=== PATIENT | male | born 1945 | race African-American/Black ===

== ENCOUNTER 2017-02-12 06:37 | Inpatient (IN) ==
[2017-02-12] MEDS ORDERED: ONDANSETRON 4 MG/2 ML VIAL IV PRN ×2 (06:44→10:17)
[2017-02-12] MEDS ORDERED: DILTIAZEM 50 MG/10 ML VIAL IV STA (06:45)
[2017-02-12] MEDS ORDERED: SODIUM CHLORIDE 0.9% 100 ML IV ONE (06:50)
[2017-02-12] MEDS ORDERED: ONDANSETRON 4 MG/2 ML VIAL ONE (06:50)
[2017-02-12] MEDS ORDERED: DILTIAZEM 100 MG VIAL.ADD IV ONE (06:50)
[2017-02-12] MEDS ORDERED: DILTIAZEM 50 MG/10 ML VIAL IV ONE (06:51)
--- NOTE | 2017-02-12 07:09 | Emergency Department Note ---
Marcelina Lozano Hilary, am scribing for, and in the presence of, Ra Nogueira MD 06: 47. Mirlande Lozano James D, MD, personally performed the services described in this documentation, ascribed by Cordelia Hewitt in my presence, and it is both accurate and complete 707 . Arrival - Arrival Stated Complaint: ABD pain transfer from [facility] Mode of Arrival: Stretcher Limitations: No Limitations Source: Patient, RN Notes Reviewed Time Seen by Provider: 02/12/17 06:42 - History of Present Illness HPI Narrative: Pt is a 71 y/o black male brought into the ED via EMS with c/o sharp abdominal pain which onset yesterday. Pt denies diarrhea or vomiting but confirms abdominal pain. He reports taking his medication as prescribed and states that he goes to dialysis Wednesday, Wednesday, and Wednesday. No other complaints or problems stated in the ED. Onset (ago): hour(s) Consistency: constant Severity: moderate Severity scale (1-10): 3 Quality: sharp Allergies/Adverse Reactions: Allergies Allergy/AdvReac Type Severity Reaction Status Date / Time No Known Allergies Allergy Verified 02/12/17 06:53 Home Medications: Home Medications Medication Instructions Recorded Confirmed Type Famotidine Tab [Pepcid Tab] 20 mg PO BID 06/22/16 01/21/17 History Allopurinol 300 mg PO DAILY 07/17/16 01/21/17 History Calcium Acetate 4 capsule PO TID W/MEALS 07/17/16 01/21/17 History Metoclopramide Tab [Reglan Tab] 5 mg PO AC 07/17/16 01/21/17 History Levothyroxine Tab [Synthroid Tab] 75 mcg PO DAILY@0700 10/06/16 01/21/17 History Carvedilol 0.5 tablet PO QAM 10/16/16 01/21/17 History Docusate Sodium Cap [Colace Cap] 100 mg PO BID 10/16/16 01/21/17 History Carvedilol [Coreg] 6.25 mg PO BEDTIME 01/06/17 01/21/17 History Cyclobenzaprine [Flexeril] 10 mg PO DAILY 01/06/17 01/21/17 History Vit B Cmplx 3/Folic AC/C/Biot 1 each PO DAILY 01/06/17 01/21/17 History [Sarai-Scooby Rx Tablet] Review of System - Review of System 12 point system: reviewed and no additional remarkable complaints except as stated - Review of System Constitutional: Absent: fever Gastrointestinal: Present: abdominal pain. Absent: vomiting, diarrhea Exam Physical Examination: GENERAL: This is a well-nourished, well-developed in no apparent distress. VITAL SIGNS: Temperature: 98.7 Pulse: 109 Respiratory: 22 Blood Pressure: 77/ 66 O2 Sat: HEENT: Head is normocephalic and atraumatic. Pupils are equally round and reactive to light. Extraocular movement are intact. Oropharynx is benign with moist mucous membranes. NECK: Neck is soft and supple without tenderness. There are no masses. There is no lymphadenopathy. LUNGS: Lungs are clear to auscultation bilaterally. Chest rises symmetrically. There is no chest wall tenderness. CV: Heart is irregularly irregular with rapid rate without murmurs, rubs, or gallops. ABDOMEN: Abdomen is soft, tender over the LLQ to palpation. There are no abnormal masses palpated. There is no organomegaly. Bowel sounds are present and active. SKIN: Skin is warm and dry. No rash. EXTREMITIES: Patient has full range of motion without tenderness. There is no pedal edema. NEUROLOGIC: Awake, alert, and oriented x4. Cranial nerves II through XII are grossly intact. There are no motorsensory deficits. PSYCHIATRIC: Normal affect. Normal mood. Vital Signs: Vital Signs Temperature 98.7 F 02/12/17 06:37 Pulse Rate 109 H 02/12/17 06:37 Respiratory Rate 22 02/12/17 06:37 Blood Pressure 77/66 02/12/17 06:37 Course Course Narrative: Cardizem bolus and infusion given to the patient while in the emergency department. - Consultations Consultation #1: Discussed with hospitalist. Patient will be admitted to their service. Time: 09:20 Results - Labs CBC & BMP: 02/12/17 07:58 02/12/17 07:58 Lab Results: I have reviewed the patients labs Labs: Laboratory Tests 02/12/17 07:58 WBC 7.4 RBC 4.39 Hgb 13.0 L Hct 39.0 L RDW 18.4 H Plt Count 111 L Lymph % (Auto) 19.1 L Laboratory Tests 02/12/17 02/12/17 07:58 07:58 Platelet Estimate Decreased Hypochromasia 1+ Ovalocytes Slight Morphology Comment Sodium 136 Potassium 3.7 Chloride 97 L Carbon Dioxide 30 BUN 33 H Creatinine 6.80 H BUN/Creatinine Ratio 4.00 L Total Bilirubin 1.60 H Alkaline Phosphatase 256 H Total Protein 8.0 Albumin 3.2 L Globulin 4.8 H Albumin/Globulin Ratio 0.6 L Lipase 69.0 L - EKG EKG results: interpreted by ERMD - Impressions EKG: Atrial fib with RVR, rate 124, incomplete right bundle branch block, nonspecific ST-T wave changes. - Diagnostic Findings Procedure: Abdominal x-ray: image reviewed by me, report reviewed by me (Gas in nondistended loops of small bowel which is a nonspecific finding at this time but could be associated with possible mild ileus, enteritis ETC. No free air. Prior median sternotomy and cholecystectomy with permanent pacemaker), Chest x- ray: image reviewed by me, report reviewed by me (Status post median sternotomy with minimal cardiomegaly and left subclavian ventricular permanent pacemaker. Chronic scarring in the lung with borderline/mild CHF. ), CT Abdomen and Pelvis : report reviewed by me, image reviewed by me (Cardiomegaly demonstrated with refluc of contrast material into IVC adn hepatic veins which appear somewhat prominent consistent with right heart failure. Bilateral hilar adenopathy. Ground glass opacification throught the bilateral lungs with interlobuar septal thickening consistent with pulmonary edema. Trace bilateral pleural effusions. Small abdominal ascites. The urinary bladder is incompletely distended. Mild stranding about the urinary bladder could reflect cystitis. Correlate with UA. Significant atherosclerotic disease with mural thrombus noted within the aorta and significant narrowing at the takeoffs of the bilateral superficial femoral arteries. Bilateral renal atrophy with probable small renal cysts. Status post cholecystectomy. Grossly stable hyperenhancing focus in several subcentimeter hypodensitites within the spleen. Subcentimeter nonobstructing left renal calculi. Mild prostate enlargement. Colonic diverticulosis. ) Critical Care Time Critical Care Time: No Disposition Clinical Impression: Abdominal pain, left lower quadrant, Atrial fibrillation with RVR Case discussed with: patient Disposition: Still a Patient Condition: Stable Time of Disposition: 09:20
[2017-02-12] MEDS: DILTIAZEM INJ 100 MG in SODIUM CHLORIDE 0.9% 100 ML IV SCH ×2 (08:01→16:00)
--- NOTE | 2017-02-12 08:06 | XRay Report ---
Exam: XR abdomen 2V Date: 02/12/2017 6:45 AM Comparison: 08/26/2014 Indication: Generalized abdominal pain Technique:[Supine and left lateral decubitus abdomen] Findings: Gas in nondistended loops of small bowel which is a nonspecific finding at this time. No free air is identified. Prior cholecystectomy and median sternotomy with permanent pacemaker. Degenerative changes are noted. Impression: Gas in nondistended loops of small bowel which is a nonspecific finding at this time but could be associated with possible mild ileus, enteritis, etc. No free air. Prior median sternotomy and cholecystectomy with permanent pacemaker. PROCEDURE INTERPRETED AT [facility] DEPARTMENT OF RADIOLOGY Final Report Signed by: Dr. Brandy Ambrose
--- NOTE | 2017-02-12 08:08 | XRay Report ---
Portable chest Date: 02/12/2017 Clinical history: Generalized abdominal pain Comparison: 10/16/2016 Technique: Portable AP sitting chest Findings: The heart remains minimally enlarged with prior median sternotomy. Left subclavian ventricular permanent pacemaker. Chronic scarring in the lungs with persistent blunting of the left costophrenic angle. Stable mediastinum and osseous structures. Impression: Status post median sternotomy with minimal cardiomegaly and left subclavian ventricular permanent pacemaker. Chronic scarring in the lungs with borderline/mild CHF. PROCEDURE INTERPRETED AT [facility] DEPARTMENT OF RADIOLOGY Final Report Signed by: Dr. Brandy Ambrose
--- NOTE | 2017-02-12 08:12 | CT Report ---
CT abdomen pelvis w con Indication: Abdominal pain/pelvic pain Comparison: CT abdomen pelvis without contrast dated February 12, 2017. CT abdomen pelvis dated November 10, 2016. Technique: Multiple axial tomographic images of the abdomen and pelvis were obtained after the administration of 100 cc Omnipaque 350 intravenous contrast. Findings: Cardiomegaly demonstrated with reflux of contrast material into the IVC and hepatic veins which appear somewhat prominent consistent with right heart failure. Bilateral hilar adenopathy. Groundglass opacification throughout the bilateral lungs with interlobular septal thickening consistent with pulmonary edema. Trace bilateral pleural effusions. No worrisome focal hepatic abnormality. Status post cholecystectomy. Grossly stable hyperenhancing focus in several subcentimeter hypodensities within the spleen. Mild nonspecific thickening of the adrenal glands. Bilateral renal atrophic change. Subcentimeter nonobstructing left renal calculi. Small hypodensities are demonstrated within the kidneys which are too small to characterize but may reflect cysts. No evidence of hydronephrosis. The urinary bladder is incompletely distended. Mild stranding about the urinary bladder could reflect cystitis. Correlate with urinalysis. Mild prostate enlargement. Small abdominal ascites. Colonic diverticulosis. There is no evidence of gastrointestinal obstruction or acute appendicitis. Significant atherosclerotic disease with mural thrombus noted within the aorta and significant narrowing at the takeoffs of the bilateral superficial femoral arteries. Visualized osseous and surrounding soft tissue structures appear grossly unchanged. Degenerative change of the bilateral hips and spine. Prior sternotomy. IMPRESSION: Cardiomegaly demonstrated with reflux of contrast material into the IVC and hepatic veins which appear somewhat prominent consistent with right heart failure. Bilateral hilar adenopathy. Groundglass opacification throughout the bilateral lungs with interlobular septal thickening consistent with pulmonary edema. Trace bilateral pleural effusions. Small abdominal ascites. The urinary bladder is incompletely distended. Mild stranding about the urinary bladder could reflect cystitis. Correlate with urinalysis. Significant atherosclerotic disease with mural thrombus noted within the aorta and significant narrowing at the takeoffs of the bilateral superficial femoral arteries. Bilateral renal atrophy with probable small renal cysts. Status post cholecystectomy. Grossly stable hyperenhancing focus in several subcentimeter hypodensities within the spleen. Subcentimeter nonobstructing left renal calculi. Mild prostate enlargement. Colonic diverticulosis. Other/detailed findings as above. The CT exam was performed using one or more of the following dose reduction techniques: Automated exposure control, adjustment of the mA and/or kV according to patient size, or use of iterative reconstruction technique. PROCEDURE INTERPRETED AT [facility] DEPARTMENT OF RADIOLOGY Final Report Signed by: Dr Raleigh Gavin
[2017-02-12 08:16] LABS: Basophils # 0.1 10*3/uL (0.0-0.2); Basophils % 0.8 % (0.0-0.8); Eosinophils # 0.2 10*3/uL (0.0-0.87); Immature Granulocytes % 0.4 %; Immature Granulocytes Absolute 0.03 #; Lymphocytes # 1.4 10*3/uL (1.4-4.0); Lymphocytes % 19.1 % (21.2-54.2); Mean Corpuscular HGB Conc 33.3 GM/DL (32-36); Mean Corpuscular Hemoglobin 30 PG (27-34); Mean Corpuscular Volume 88.8 FL (87-102); Mean Platelet Volume 10.8 FL (9.6-12.0); Monocytes # 0.6 10*3/uL (0.11-0.8); Monocytes % 7.5 % (1.7-12.7); NRBC # 0.05 10*3/uL; Neutrophils # 5.2 10*3/uL (1.4-7.4); Neutrophils % 70.2 % (38.7-73.9); Red Blood Count 4.39 MC/CUMM (3.8-5.5); Red Cell Distribution Width 18.4 % (9.3-17.3); White Blood Count 7.4 T/CUMM (4-12)
[2017-02-12 08:17] LABS: Platelet Count 111 T/CUMM (130-400)
--- NOTE | 2017-02-12 08:21 | EKG Report ---
Stationary ECG Study [facility] ER Test Date: 02/12/2017 7:41:05 AM Pat Name: SHOAIB JANSEN Department: Room: Gender: M Home Health Attendant: : 1945 Requested by: Shoaib Nur Order Number: [id number] Reading MD: BRITTNI LARA Intervals Shannon Rate: 124 P: 999 VT: 0 QRS: 136 QRSD: 108 T: -24 QT: 359 QTc: 432 Interpretive Statements ATRIAL FIBRILLATION WITH RAPID VENTRICULAR RESPONSE INCOMPLETE RIGHT BUNDLE BRANCH BLOCK POSSIBLE RIGHT VENTRICULAR HYPERTROPHY MODERATE ST DEPRESSION ABNORMAL QRS-T ANGLE Electronically Signed On 02-12-17 13:09:32 CDT by BRITTNI LARA [email or web address]
[2017-02-12 08:43] LABS: Hypochromasia 1+
[2017-02-12 08:44] LABS: Albumin 3.2 G/DL (3.4-5.0); Bilirubin,Total 1.6 MG/DL (0.2-1.0); Calcium 9.7 MG/DL (8.5-10.1); Ovalocytes Slight; Platelet Estimate Decreased; Potassium 3.7 MMOL/L (3.5-5.1)
[2017-02-12] MEDS ORDERED: GLUCAGON 1 MG VIAL IM PRN (10:17)
[2017-02-12] MEDS ORDERED: DOCUSATE SODIUM 100 MG CAPSULE PO PRN (10:17)
[2017-02-12] MEDS ORDERED: SODIUM CHLORIDE 0.9% 2,400 ML IV ONE (10:17)
[2017-02-12] MEDS ORDERED: NOREPINEPHRINE 8 MG in SODIUM CHLORIDE 0.9% 242 ML IV SCH (10:30)
[2017-02-12] MEDS ORDERED: SODIUM CHLORIDE 0.9% 250 ML IV STA ×2 (10:45)
--- NOTE | 2017-02-12 11:08 | Hospitalist History & Physical ---
<DacomaVikash negron - Last Filed: 02/12/17 10:47> Assessment and Plan - Time spent with patient Time spent with patient: Greater than 30 minutes (1) Atrial fibrillation with rapid ventricular response Status: Acute Assessment and plan: 71-year-old -[place] male who presents to the ED as a transfer from outside facility with atrial fibrillation and RVR. Patient is still in atrial fibrillation with a ventricular rate of 109-125. Patient was started on Cardizem drip in the ED. He will be admitted to the ICU for further evaluation and treatment. Cardiology is been consulted. Current Visit: No (2) ESRD (end stage renal disease) on dialysis Problem details: No acute indication for dialysis at this time. Status: Chronic Assessment and plan: BUN 30 creatinine 6.0. Patient is on hemodialysis and dialyzes at the [facility] in [place] on Mondays, Wednesdays, and Fridays. He is [place] [facility] [place]. Dr. Pagan has been consulted for continuation of dialysis during his hospital stay. Current Visit: No (3) Hypotension Status: Acute Assessment and plan: BP was 77/66 on admission. Patient was given 500 cc of normal saline bolus in the ED with some response. At the time of my exam, the patient is P was 111/ 26. He has been admitted to the ICU with continued IV fluids in addition to Levophed. We will titrate to keep MAP greater than 60 mmHg. Current Visit: No (4) Peripheral artery disease Status: Chronic Current Visit: No (5) Diabetic foot Status: Acute Assessment and plan: Blood glucose 91 on admission. Accu-Cheks ACHS. Sliding scale insulin per protocol. Current Visit: No (6) Prostatitis Status: Acute Current Visit: No (7) Status post coronary artery bypass grafting Status: Chronic Current Visit: No History of Present Illness Chief complaint: abdominal pain History of present illness: Mr. Nye is a 71 year old male with a past medical history significant for NM with CABG, pacemaker, hypertension, diabetes mellitus, ESRD on hemodialysis, gouty arthritis, and atrial fibrillation with RVR who presents to the ED via EMS as a transfer from [facility] for further evaluation of sharp abdominal pain thought to be SBP. On arrival, the patient was hypotensive 77/66 and in atrial fibrillation with RVR. He was immediately given 500 cc bolus of NS IV and placed in Trendelenburg with some response. He was also started on 100 ml Cardizem drip. At the time of my exam, the patient's BP was 111/26 however he was awake, alert and oriented x3. He reports that he began experiencing lower abdominal pain last night and decided to pursue medical treatment this morning at [facility]. He tells me that this has happened once before. He confirms headache, blurry vision , shortness of breath, nausea with 1 episode of emesis today, sharp right-sided abdominal pain. He denies chest pain, change in appetite or diet, change in bowel habits, BRBPR. Lab work reveals: WBC 7.4, hemoglobin 13.0, hematocrit 39.0 , platelet count 111, sodium 136, potassium 3.7, chloride 97, BUN 33, creatinine 6.80, total bili 1.60, alkaline phosphatase 256. The patient does have hemodialysis Wednesday, Wednesday, Wednesday. Given his hypotension and atrial fibrillation with RVR, the patient will be admitted to the ICU for further evaluation and treatment. Case been discussed with both Dr. Nogueira and Dr. Mckeon. Nephrology will be consulted for recommendations for dialysis. The patient is a full code. Home medications have been reviewed and reconciled. Home Medications Medication Instructions Recorded Confirmed Type Famotidine Tab [Pepcid Tab] 20 mg PO BID 06/22/16 01/21/17 History Allopurinol 300 mg PO DAILY 07/17/16 01/21/17 History Calcium Acetate 4 capsule PO TID W/MEALS 07/17/16 01/21/17 History Metoclopramide Tab [Reglan Tab] 5 mg PO AC 07/17/16 01/21/17 History Levothyroxine Tab [Synthroid Tab] 75 mcg PO DAILY@0700 10/06/16 01/21/17 History Carvedilol 0.5 tablet PO QAM 10/16/16 01/21/17 History Docusate Sodium Cap [Colace Cap] 100 mg PO BID 10/16/16 01/21/17 History Carvedilol [Coreg] 6.25 mg PO BEDTIME 01/06/17 01/21/17 History Cyclobenzaprine [Flexeril] 10 mg PO DAILY 01/06/17 01/21/17 History Vit B Cmplx 3/Folic AC/C/Biot 1 each PO DAILY 01/06/17 01/21/17 History [Sarai-Scooby Rx Tablet] Allergies Allergy/AdvReac Type Severity Reaction Status Date / Time No Known Allergies Allergy Verified 02/12/17 06:53 Medical,Surgical,& Family Hx - Medical History Cardio: History of: Cardiac Dysrhythmia (A fib/ A flutter), Cerebrovascular Disease, CHF, CAD (Coronary bypass grafting 2 only a single vein graft to the OM open 01/07), Hypertension, [place] (2000, 2009), Valvular Heart Disease, Cardiovascular Problems (CABG X 2 separate operations. Only SVG to OM1 open at [facility] 01/07.) Neurology: History of: Cerebrovascular Accident (2000) No history of: Seizures HEENT: History of: Eye Problem, Dental Problems (NO DENTURES AND NO TEETH), Glaucoma Endocrine: History of: Diabetes Mellitus (IDDM), Diabetes Mellitus (NIDDM), Dyslipidemia Rheumatology: History of;: Gout, Rheumatoid Arthritis Respiratory: History of: Pneumonia (HX), Respiratory Problems (2 LITERS OF OXYGEN AT BEDTIME) No history of: COPD Renal: History of: Dialysis (MWF), Renal Failure Gastrointestinal: History of: GERD, Gastrointestinal Bleed (09/2014 - resulting anticoagulation cessation), Polyps, GI Problems Musculoskeletal: History of: 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), Back/Neck Problems, Musculoskeletal Problems (arthritits) Hematology: History of: Anemia, Bleeding Problems No history of: Blood Transfusion Reaction Other: History of: Cancer (prostate) No history of: Anesthesia Reactions - Surgical History Cardiac Surgeries: Sugical HX of: Cardiac Catheterization, Cardiac Surgery (CABG ), Vascular Access Devices Thoracic Surgeries: Patient denies;: Organ Transplant HEENT Surgeries: Surgical HX of: Eye Surgery (12/2016 Cataract Rt Eye; 01/21/17 Sched for Lt Cataract) Abdominal Surgeries: Surgical HX of: Abdominal Surgery, Cholecystectomy, Colonoscopy, EGD Orthopedic Surgeries: Surgical HX of;: Implanted Devices (LEFT ARM AND LEFT CHEST DIALYSIS) - Family History Family History: Reports;: Family Cancer, Family Diabetes, Family Heart Disease, Family Hypertension Denies;: Family Anesthesia Reaction, Family Psychiatric Problems, Family Stroke - Social History Smoking Status: Never smoker Frequency of Alcohol Use: None Type of Drug Use: None Marital Status: Lives With:: Spouse Functional capacity: independent ambulation 12 point system: reviewed and no additional remarkable complaints except as stated Exam - Constitutional Vitals: Period Temp Pulse Resp BP Sys/Santana Pulse Ox Last 24 Hr 98.7 F-98.7 F 101-125 20-22 58-132/26-81 81-96 Exam: General appearance: overweight, mild distress - Head Head exam: Present: normocephalic, atraumatic - Eye Eye exam: Present: EOMI. Absent: conjunctival injection, nystagmus Pupils: Present: CHRIS, normal accommodation - ENT ENT exam: Present: normal exam, normal external ear exam - Neck Neck exam: Present: normal inspection. Absent: lymphadenopathy, tenderness, thyromegaly - Respiratory Respiratory exam: Present: Decreased breath sounds bilaterally, rhonchi. Absent : rales, wheezes - Cardiovascular Cardiovascular exam: Present: regular rate and rhythm. Absent: carotid bruit, gallop, rubs - GI/Abdominal GI/Abdominal exam: Present: normal bowel sounds. Absent: ascites, distended, mass - Extremities Exam Extremities exam: Present: Peripheral vascular disease, venous stasis dermatitis in diabetes absent: edema - Back Exam Back exam: Absent: CVA tenderness (L), CVA tenderness (R) - Neurological Exam Neurological exam: Present: alert, oriented X3, CN II-XII intact, reflexes normal - Psychiatric Psychiatric exam: Present: normal affect, normal mood - Skin Skin exam: Present: warm, dry Results - Labs CBC & BMP: 02/12/17 07:58 02/12/17 07:58 Sepsis Sepsis documentation within 6 hours of presentation: echo - Physical Exam Respiratory exam: decreased breath sounds, rhonchi Capillary Refill: Greater Than 3 Seconds Peripheral pulses: Radial (L): 1+, Radial (R): 1+, Dorsalis Pedis (L) PM: 1+, Dorsalis Pedis (R) PM: 1+, Posterior Tibialis (L): 0, Posterior Tibialis (R): 0 Cardiovascular exam: irregular rhythm, tachycardia <Gilson Mckeon III - Last Filed: 02/12/17 15:38> Assessment and Plan - Time spent with patient Time spent with patient: Greater than 30 minutes (1) Aortic mural thrombus Status: Chronic Assessment and plan: 02/12/2017: Uncertain if patient's abdominal pain complaints are in any way related to this finding reported on CT scan today. Consider starting oral anticoagulation. Of note patient experienced acute GI bleed thought to be related to small bowel AVM in September of this year. Consider vascular surgeon consult. Current Visit: Yes (2) Bilateral atherosclerotic renal artery stenosis Status: Chronic Assessment and plan: 02/12/2017: Patient does have essential hypertension but is well-controlled with current medications. He has hypotensive at present. Is receiving Levophed inotropic support. Diltiazem has been prescribed for atrial fibrillation ventricular rate control. Consider IV digoxin dosing to control ventricular rate and avoid additional blood pressure reduction associated with diltiazem infusion. I also expect patient's blood pressure to improve as atrial fibrillation ventricular rate slows down and possibly chemically cardioverted to sinus rhythm. Current Visit: Yes (3) Prostate hypertrophy Status: Chronic Current Visit: Yes (4) Diverticulosis Status: Chronic Assessment and plan: 02/12/2017: Today's KUB reports changes consistent with ileus versus enteritis. No such findings are reported on today's abdominal pelvic CT scan. Current Visit: Yes (5) Calculus of left kidney Status: Chronic Assessment and plan: 02/12/2017: Calculi are described as nonobstructive. I do not know how much urine patient makes (ESRD) consider straining urine to possibly collect stone for composition analysis. Current Visit: Yes (6) Thrombocytopenia Status: Acute Current Visit: Yes (7) Coronary artery disease Status: Chronic Assessment and plan: 02/12/2017: History of CABG, stent revascularization, and permanent cardiac pacemaker placement (history of tachybradycardia syndrome). Current Visit: Yes (8) ESRD (end stage renal disease) on dialysis Status: Chronic Assessment and plan: 02/12/2017: Wednesday, Wednesday, Wednesday hemodialysis schedule. Volume overload on chest x-ray. Scheduled hemodialysis session today. Current Visit: Yes (9) Type 2 diabetes mellitus Status: Chronic Assessment and plan: 02/12/2017: Hemoglobin A1c measures 5.7%. Current Visit: Yes (10) Hypothyroidism Status: Chronic Assessment and plan: 02/12/2017: Check TSH and free T4 levels. June 2016 TSH measured 10.7. Patient receives 75 mcg daily Synthroid supplementation. Titrate this dose according to current TSH and free T4 results. Current Visit: Yes (11) Chronic interstitial lung disease Status: Chronic Assessment and plan: 02/12/2017: Adequate oxygenation. Titrate supplemental oxygen flow as required to maintain saturation greater than 90%. Current Visit: Yes History of Present Illness History of present illness: Mr. Nye is a 71 year old black male admitted for evaluation of abdominal pain complaints. I interviewed and examined this patient independently today. I agree with medical history, physical exam findings, and treatment plan as I have amended the H&P recorded by nurse practitioner Vikash Lebron earlier today. - Constitutional Constitutional: Present: fatigue, lethargy, weakness - EENT Eyes: Present: other (Recent cataract excision procedure) - Cardiovascular Cardiovascular: Present: dyspnea on exertion, edema. Absent: chest pain with activity - Respiratory Respiratory: Present: dyspnea. Absent: cough, wheezing, snoring, change in phlegm color - Gastrointestinal Gastrointestinal: Present: cramping, nausea - Musculoskeletal Musculoskeletal: Present: muscle weakness - Psychiatric Psychiatric: Absent: anxiety Exam - Constitutional Vitals: Period Temp Pulse Resp BP Sys/Santana Pulse Ox Last 24 Hr 98.7 F-98.7 F 98-125 20-22 58-132/26-81 81-96 General appearance: normal weight - Head Head exam: Present: normal inspection - Eye Eye exam: Present: EOMI - Neck Neck exam: Absent: meningismus, tenderness - Respiratory Respiratory exam: Present: decreased breath sounds. Absent: rales, wheezes - Cardiovascular Cardiovascular exam: Present: irregular rhythm - GI/Abdominal GI/Abdominal exam: Present: normal bowel sounds, soft. Absent: tenderness, rebound - Extremities Exam Extremities exam: Present: other (Trace pretibial and pedal pitting edema; both feet are warm to touch, no palpable DP pulses) - Neurological Exam Neurological exam: Present: alert, oriented X3 - Psychiatric Psychiatric exam: Present: normal affect - Skin Skin exam: Present: normal color (Deeply pigmented), dry Results - Labs CBC & BMP: 02/12/17 07:58 02/12/17 07:58
--- NOTE | 2017-02-12 12:54 | Nephrology Consult Note ---
History of Present Illness Chief complaint: Abdominal pain in a patient with ESRD History of present illness: Mr. Nye is a 71 year old male who dialyzes on a Wednesday basis and [facility]. Patient's last dialysis was this past Wednesday. Patient states he started having severe abdominal pain yesterday quite suddenly. He states he had been on his general state of health up until then. The patient finally during the interview stated that he was invited to eat some white dirt yesterday by a strap cutting machine operator and did so. Patient states his abdominal pain is better now but has a little bit of discomfort with palpation. The patient denies any nausea or vomiting he states his last bowel movement was yesterday he states he has been having flatus. The patient on his evaluation was found also to have atrial fibrillation with a rapid ventricular response and is currently getting a Cardizem infusion. ROS: Head -positive headaches ENT - denies sore throat Lymphatics - denies lymphadenopathy Hematology - denies bleeding problems Heart - denies chest pain Lungs -positive shortness of breath Abdomen -positive abdominal pain Musculoskeletal -complains of pain in his right shoulder Skin - denies rash Neurology - denies stroke General - denies fever PE: General: in no acute distress Eyes: Pupils are round and reactive, conjunctivae are clear ENT: Nose is clear, O/P is benign Neck: Supple, no thyromegaly Lymphatics: No cervical, supraclavicular or axillary adenopathy Heart: Irregular irregular rhythm, no edema Lungs: Clear to auscultation anteriorly, chest expansion symmetric Abdomen: Soft, normoactive bowel sounds, no hepatomegaly Musculoskeletal: No joint erythema or effusions or joint asymmetry Skin: Normal turgor, normal hydration, no rash Neuro/Psych: Alert and cooperative with fair insight, he does intermittently drift off to sleep during the interview. Home Medications Medication Instructions Recorded Confirmed Type Famotidine Tab [Pepcid Tab] 20 mg PO BID 06/22/16 01/21/17 History Allopurinol 300 mg PO DAILY 07/17/16 01/21/17 History Calcium Acetate 4 capsule PO TID W/MEALS 07/17/16 01/21/17 History Metoclopramide Tab [Reglan Tab] 5 mg PO AC 07/17/16 01/21/17 History Levothyroxine Tab [Synthroid Tab] 75 mcg PO DAILY@0700 10/06/16 01/21/17 History Carvedilol 0.5 tablet PO QAM 10/16/16 01/21/17 History Docusate Sodium Cap [Colace Cap] 100 mg PO BID 10/16/16 01/21/17 History Carvedilol [Coreg] 6.25 mg PO BEDTIME 01/06/17 01/21/17 History Cyclobenzaprine [Flexeril] 10 mg PO DAILY 01/06/17 01/21/17 History Vit B Cmplx 3/Folic AC/C/Biot 1 each PO DAILY 01/06/17 01/21/17 History [Sarai-Scooby Rx Tablet] Allergies Allergy/AdvReac Type Severity Reaction Status Date / Time No Known Allergies Allergy Verified 02/12/17 06:53 Medical,Surgical,& Family Hx - Medical History Cardio: History of: Cardiac Dysrhythmia (A fib/ A flutter), Cerebrovascular Disease, CHF, CAD (Coronary bypass grafting 2 only a single vein graft to the OM open 01/07), Hypertension, [place] (2000, 2009), Valvular Heart Disease, Cardiovascular Problems (CABG X 2 separate operations. Only SVG to OM1 open at [facility] 01/07.) Neurology: History of: Cerebrovascular Accident (2000) No history of: Seizures HEENT: History of: Eye Problem, Dental Problems (NO DENTURES AND NO TEETH), Glaucoma Endocrine: History of: Diabetes Mellitus (IDDM), Diabetes Mellitus (NIDDM), Dyslipidemia Rheumatology: History of;: Gout, Rheumatoid Arthritis Respiratory: History of: Pneumonia (HX), Respiratory Problems (2 LITERS OF OXYGEN AT BEDTIME) No history of: COPD Renal: History of: Dialysis (MWF), Renal Failure Gastrointestinal: History of: GERD, Gastrointestinal Bleed (09/2014 - resulting anticoagulation cessation), Polyps, GI Problems Musculoskeletal: History of: 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), Back/Neck Problems, Musculoskeletal Problems (arthritits) Hematology: History of: Anemia, Bleeding Problems No history of: Blood Transfusion Reaction Other: History of: Cancer (prostate) No history of: Anesthesia Reactions - Surgical History Cardiac Surgeries: Sugical HX of: Cardiac Catheterization, Cardiac Surgery (CABG ), Vascular Access Devices Thoracic Surgeries: Patient denies;: Organ Transplant HEENT Surgeries: Surgical HX of: Eye Surgery (12/2016 Cataract Rt Eye; 01/21/17 Sched for Lt Cataract) Abdominal Surgeries: Surgical HX of: Abdominal Surgery, Cholecystectomy, Colonoscopy, EGD Orthopedic Surgeries: Surgical HX of;: Implanted Devices (LEFT ARM AND LEFT CHEST DIALYSIS) - Family History Family History: Reports;: Family Cancer, Family Diabetes, Family Heart Disease, Family Hypertension Denies;: Family Anesthesia Reaction, Family Psychiatric Problems, Family Stroke - Social History Smoking Status: Never smoker Frequency of Alcohol Use: None Type of Drug Use: None Exam - Vital Signs Vital signs: Period Temp Pulse Resp BP Sys/Santana Pulse Ox Last 24 Hr 98.7 F-98.7 F 101-125 20-22 58-132/26-81 81-96 Results - Labs CBC & BMP: 02/12/17 07:58 02/12/17 07:58 Assessment and Plan (1) Abdominal pain Status: Acute Assessment and plan: Patient's abdominal pain seems to be improved, the patient states he ate some white dirt yesterday and thinks that this may have been the cause to his abdominal pain, CT scan of the abdomen did not seem to reveal any acute pathology to explain his pain. Current Visit: Yes (2) Atrial fibrillation with RVR Status: Acute Assessment and plan: Continue Cardizem for rate control Current Visit: Yes (3) Diabetes mellitus Status: Chronic Assessment and plan: Monitor with a sliding scale Current Visit: No Qualifiers: Diabetes mellitus type: type 2 Diabetes mellitus complication status: with hyperosmolarity (4) End stage renal disease on dialysis Status: Chronic Assessment and plan: We will plan on hemodialysis today. Current Visit: No
[2017-02-12] MEDS: PANTOPRAZOLE 40 MG TABLET PO SCH (13:01)
[2017-02-12] MEDS: INSULIN LISPRO 100 UNIT/ML SUBCUT SCH ×3 (13:01→20:59)
[2017-02-12] MEDS: ENOXAPARIN 30 MG/0.3 ML SYRINGE SUBCUT SCH (13:02)
[2017-02-12] MEDS: METOCLOPRAMIDE 5 MG TABLET PO SCH ×2 (13:02→17:40)
[2017-02-12] MEDS: SODIUM CHLORIDE 0.9% 1,000 ML IV SCH ×3 (15:44→23:03)
--- NOTE | 2017-02-12 22:23 | ECHO Report ---
[facility] Exam Date: 02/12/2017 12:14 Referring Physician: Technologist: Darcie Rowe RDCS Age: 71 Ht (in): 65 Wt (lb): 176 Gender: M Exam Location: [facility] Echo Indications: Atrial fibrillation, End stage renal disease, Hypotension, IDDM, PAD, CAD with previous CABG, Presence of cardiac pacemaker BP: 132 / 81 HR: 100 Rhythm: Atrial fibrillation Technical Quality: Good IMPRESSIONS Left ventricular ejection fraction is estimated at 55 %. 3 + increased right ventricular size. Moderately increased right atrial size. Moderately increased left atrial size. Moderate-severe mitral valve regurgitation. Mild aortic valve sclerosis without stenosis or regurgitation. [id number] tricuspid valve regurgitation. Tricuspid regurgitation velocities suggest a PAP of 85 mmHg. Trace pulmonary valve regurgitation. MEASUREMENTS (Male / Female) Normal Values 2D ECHO LV Diastolic Diameter PLAX 4.0 cm 4.2 - 5.9 / 3.9 - 5.3 cm LV Systolic Diameter PLAX 2.7 cm LV Fractional Shortening PLAX 33.7 % IVS Diastolic Thickness 1.0 cm 0.6 - 1.0 / 0.6 - 0.9 cm LVPW Diastolic Thickness 1.0 cm 0.6 - 1.0 / 0.6 - 0.9 cm RV Internal Dim ED PLAX 3.5 cm Aortic Root Diameter 3.1 cm LA Systolic Diameter LX 4.5 cm 3.0 - 4.0 / 2.7 - 3.8 cm DOPPLER TR Peak Velocity 433.0 cm/s TR Peak Gradient 75.0 mmHg FINDINGS Left Ventricle Normal left ventricular cavity size. Normal left ventricular wall thickness. Left ventricular ejection fraction is estimated at 55 %. Right Ventricle 3 + increased right ventricular size. Catheter/pacemaker wire visualized in the right ventricle. Right Atrium Moderately increased right atrial size. Catheter/pacemaker wire in the right atrial cavity. Left Atrium Moderately increased left atrial size. Mitral Valve Morphologically normal mitral valve. Moderate-severe mitral valve regurgitation. Aortic Valve Mild aortic valve sclerosis without stenosis or regurgitation. Tricuspid Valve Morphologically normal tricuspid valve. [id number] tricuspid valve regurgitation. Tricuspid regurgitation velocities suggest a PAP of 85 mmHg. Pulmonic Valve Morphologically normal pulmonic valve. Trace pulmonary valve regurgitation. Pericardium Normal pericardium without effusion. Aorta Normal ascending aorta dimension. Tutu Chappell MD (Electronically Signed) Final Date: 12 February 2017 22:22
[2017-02-13] MEDS: DILTIAZEM INJ 100 MG in SODIUM CHLORIDE 0.9% 100 ML IV SCH ×2 (00:42→08:20)
[2017-02-13] MEDS: SODIUM CHLORIDE 0.9% 1,000 ML IV SCH ×3 (02:56→12:32)
[2017-02-13 05:07] LABS: Basophils % 0.5 % (0.0-0.8); Eosinophils # 0.2 10*3/uL (0.0-0.87); Eosinophils % 2.1 % (0.00-10.9); Hematocrit 36.2 VOL% (42.0-52.0); Hemoglobin 11.9 GM/DL (14.0-18.0); Immature Granulocytes % 0.4 %; Immature Granulocytes Absolute 0.03 #; Lymphocytes % 12.9 % (21.2-54.2); Mean Corpuscular HGB Conc 32.9 GM/DL (32-36); Mean Corpuscular Hemoglobin 29 PG (27-34); Mean Corpuscular Volume 89.2 FL (87-102); Mean Platelet Volume 10.8 FL (9.6-12.0); Monocytes # 0.7 10*3/uL (0.11-0.8); Monocytes % 9.1 % (1.7-12.7); NRBC # 0.04 10*3/uL; Neutrophils # 5.6 10*3/uL (1.4-7.4); Platelet Count 109 T/CUMM (130-400); Red Blood Count 4.06 MC/CUMM (3.8-5.5); Red Cell Distribution Width 18.1 % (9.3-17.3); White Blood Count 7.5 T/CUMM (4-12)
[2017-02-13 05:37] LABS: Calcium 8.3 MG/DL (8.5-10.1); Osmolality,Calculated 281.5 MOS/KG (273-304); Potassium 3.6 MMOL/L (3.5-5.1)
[2017-02-13] MEDS: LEVOTHYROXINE 75 MCG TABLET PO SCH (06:21)
[2017-02-13] MEDS: INSULIN LISPRO 100 UNIT/ML SUBCUT SCH ×4 (08:21→21:05)
--- NOTE | 2017-02-13 08:24 | Hospitalist Progress Note ---
Assessment and Plan - Time spent with patient Time spent with patient: Less than 30 minutes (1) Atrial fibrillation with rapid ventricular response Status: Acute Assessment and plan: Patient continues on IV Cardizem infusion. Echocardiogram has been obtained and results noted. Cardiology has been consulted to assist with his care. Current Visit: No (2) ESRD (end stage renal disease) on dialysis Problem details: No acute indication for dialysis at this time. Status: Chronic Assessment and plan: Nephrology is following and assisting with hemodialysis. Current Visit: No (3) IDDM (insulin dependent diabetes mellitus) Status: Chronic Assessment and plan: Currently on Accu-Cheks with sliding scale insulin only. Current Visit: No (4) Abdominal pain Status: Acute Assessment and plan: Abdominal pain has resolved. Previous workup has been negative. Current Visit: Yes (5) Hypothyroidism Status: Chronic Assessment and plan: Continuing thyroid replacement therapy. Current Visit: Yes (6) Hypertension Status: Chronic Assessment and plan: Blood pressure currently stable on IV Cardizem only. Current Visit: No Qualifiers: Hypertension type: essential hypertension Qualified Code(s): I10 - Essential (primary) hypertension (7) Hypotension Status: Acute Assessment and plan: This is resolved with initiation of fluids. His antihypertensive home medications been withheld and he is being maintained on IV Cardizem only. Current Visit: No Hospitalist: Subjective Interval history: Chart is been reviewed and patient examined. 71-year-old -Turkmen male who presented from outside facility with complaints with abdominal pain which is now resolved and workup and been negative. He was noted to have atrial fibrillation with rapid ventricular response was started on IV Cardizem in the ED. He was also noted to be hypotensive and was given fluid boluses and required vasopressor therapy which is now been weaned off. He does have end- stage renal disease and is followed by nephrology for his dialysis. Today he denies any chest pain, shortness breath, abdominal pain, nausea, vomiting, diarrhea, constipation,. He has been tolerating his diet without any complaints. Exam - Constitutional Vitals: Period Temp Pulse Resp BP Sys/Santana Pulse Ox Last 24 Hr 97.1 F-98.4 F 80-125 10-22 58-161/26-104 81-100 General appearance: no acute distress - Head Head exam: Present: normocephalic, atraumatic - Eye Eye exam: Present: EOMI Pupils: Present: CHRIS - ENT ENT exam: Present: normal exam - Neck Neck exam: Present: normal inspection - Respiratory Respiratory exam: Present: clear to auscultation bilaterally. Absent: rales, rhonchi, wheezes - Cardiovascular Cardiovascular exam: Present: irregular rhythm, tachycardia - GI/Abdominal GI/Abdominal exam: Present: normal bowel sounds, soft. Absent: mass, tenderness , rebound - Extremities Exam Extremities exam: Absent: calf tenderness, edema - Neurological Exam Neurological exam: Present: alert, oriented X3, CN II-XII intact. Absent: motor sensory deficit - Psychiatric Psychiatric exam: Present: normal affect, normal mood. Absent: agitated, anxious - Skin Skin exam: Present: warm, dry. Absent: erythema Results - Labs CBC & BMP: 02/13/17 04:28 02/13/17 04:28 Lab Results: I have reviewed the past 24 hour labs
[2017-02-13] MEDS: METOCLOPRAMIDE 5 MG TABLET PO SCH ×3 (08:32→17:08)
[2017-02-13] MEDS: PANTOPRAZOLE 40 MG TABLET PO SCH (08:32)
--- NOTE | 2017-02-13 09:42 | Cardiology Consult Note ---
Assessment and Plan (1) Abdominal pain Status: Acute Assessment and plan: 1. 71-year-old with multiple medical problems including hypertension, dyslipidemia, diabetes, coronary artery disease status post 2 separate CABG surgeries most recently December 2012, non-STEMI, ESRD, PAD (previous fifth toe amputation and multiple left SFA intervention/stent by IR) apparent permanent atrial fibrillation status post pacemaker earlier this year due to bradycardia, who present with abdominal discomfort atrial fibrillation RVR and hypotension which required pressors initially. 2. He seems to have improved clinically since last night, and rate is controlled on diltiazem infusion. 3. Echocardiogram shows normal ejection fraction with EF 55% with moderate to severe MR and TR and severe pulmonary hypertension 4. Add metoprolol short acting 25 mg 3 times daily to help facilitate gradually weaning him off IV diltiazem. 5. Taken off anticoagulation long ago due to significant bleeding problems per 6. High intensity statin therapy 7. He is followed by Dr. Pj gray in clinic 8. We will follow with you. Current Visit: Yes (2) Atrial fibrillation with RVR Status: Acute Current Visit: Yes (3) Hypotension Status: Acute Current Visit: No (4) Diabetes mellitus Status: Chronic Current Visit: No Qualifiers: Diabetes mellitus type: type 2 Diabetes mellitus complication status: with kidney complications Diabetes mellitus penitentiary insulin use: with penitentiary use Chronic kidney disease stage: on chronic dialysis (5) ESRD (end stage renal disease) on dialysis Problem details: No acute indication for dialysis at this time. Status: Chronic Current Visit: No History of Present Illness - Consult Narrative History of present illness: Mr. Nye is a 71 year old male who is not the best historian but reports she has been having abdominal discomfort in the lower midportion. He was noted to have RVR of his chronic atrial fibrillation and was transferred here for further care. Hypotension originally requiring pressure support but this appears to have stabilized. He currently has some mild dyspnea but he said he has had dyspnea on exertion for many months which is unchanged. He is not having any chest discomfort palpitations or dizziness currently. CC: Arpit L[facility] - Home Medications and Allergies Home Medications: Home Medications Medication Instructions Recorded Confirmed Type Famotidine Tab [Pepcid Tab] 20 mg PO BID 06/22/16 01/21/17 History Allopurinol 300 mg PO DAILY 07/17/16 01/21/17 History Calcium Acetate 4 capsule PO TID W/MEALS 07/17/16 01/21/17 History Metoclopramide Tab [Reglan Tab] 5 mg PO AC 07/17/16 01/21/17 History Levothyroxine Tab [Synthroid Tab] 75 mcg PO DAILY@0700 10/06/16 01/21/17 History Carvedilol 0.5 tablet PO QAM 10/16/16 01/21/17 History Docusate Sodium Cap [Colace Cap] 100 mg PO BID 10/16/16 01/21/17 History Carvedilol [Coreg] 6.25 mg PO BEDTIME 01/06/17 01/21/17 History Cyclobenzaprine [Flexeril] 10 mg PO DAILY 01/06/17 01/21/17 History Vit B Cmplx 3/Folic AC/C/Biot 1 each PO DAILY 01/06/17 01/21/17 History [Sarai-Scooby Rx Tablet] Allergies/Adverse Reactions: Allergies Allergy/AdvReac Type Severity Reaction Status Date / Time No Known Allergies Allergy Verified 02/12/17 06:53 Medical,Surgical,& Family Hx - Medical History Cardio: History of: Cardiac Dysrhythmia (A fib/ A flutter), Cerebrovascular Disease, CHF, CAD (Coronary bypass grafting 2 only a single vein graft to the OM open 01/07), Hypertension, SC (2000, 2009), Valvular Heart Disease, Cardiovascular Problems (CABG X 2 separate operations. Only SVG to OM1 open at [facility] 01/07.) Neurology: History of: Cerebrovascular Accident (2000) No history of: Seizures HEENT: History of: Eye Problem, Dental Problems (NO DENTURES AND NO TEETH), Glaucoma Endocrine: History of: Diabetes Mellitus (IDDM), Diabetes Mellitus (NIDDM), Dyslipidemia Rheumatology: History of;: Gout, Rheumatoid Arthritis Respiratory: History of: Pneumonia (HX), Respiratory Problems (2 LITERS OF OXYGEN AT BEDTIME) No history of: COPD Renal: History of: Dialysis (MWF), Renal Failure Gastrointestinal: History of: GERD, Gastrointestinal Bleed (09/2014 - resulting anticoagulation cessation), Polyps, GI Problems Musculoskeletal: History of: 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), Back/Neck Problems, Musculoskeletal Problems (arthritits) Hematology: History of: Anemia, Bleeding Problems No history of: Blood Transfusion Reaction Other: History of: Cancer (prostate) No history of: Anesthesia Reactions - Surgical History Cardiac Surgeries: Sugical HX of: Cardiac Catheterization, Cardiac Surgery (CABG ), Vascular Access Devices Thoracic Surgeries: Patient denies;: Organ Transplant Neurologic Surgeries: Patient denies: Neurologic Surgery HEENT Surgeries: Surgical HX of: Eye Surgery (12/2016 Cataract Rt Eye; 01/21/17 Sched for Lt Cataract) Abdominal Surgeries: Surgical HX of: Abdominal Surgery, Cholecystectomy, Colonoscopy, EGD Orthopedic Surgeries: Surgical HX of;: Implanted Devices (LEFT ARM AND LEFT CHEST DIALYSIS) - Family History Family History: Reports;: Family Cancer, Family Diabetes, Family Heart Disease, Family Hypertension Denies;: Family Anesthesia Reaction, Family Psychiatric Problems, Family Stroke - Social History Smoking Status: Never smoker Frequency of Alcohol Use: None Type of Drug Use: None Physical Examination Vital Signs Temp Pulse Resp BP 98.7 F 109 H 22 77/66 02/12/17 06:37 02/12/17 06:37 02/12/17 06:37 02/12/17 06:37 General: Present: Appears Well, No Apparent Distress Neck: Present: Supple Neck, JVD/HJR Cardiac: Present: Irregularly Regular, Systolic Murmur. Absent: Diastolic Murmur, Tachycardia Lungs: Present: Rales - Left, Rales - Right, No Wheezes Neuro: Absent: Resting Tremor Abdomen: Present: Distended, Non-Tender Extremities: Present: No Edema, Cool Result/EKG - Labs CBC & BMP: 02/13/17 04:28 02/13/17 04:28 Labs: Laboratory Results - last 24 hr 02/12/17 02/12/17 02/12/17 07:58 11:30 12:59 WBC RBC Hgb Hct MCV MCH MCHC RDW Plt Count MPV Neut % (Auto) Lymph % (Auto) Arthur % (Auto) Eos % (Auto) Baso % (Auto) Neut # (Auto) Lymph # (Auto) Arthur # (Auto) Eos # (Auto) Baso # (Auto) Immature Gran % Nucleated RBC % Immature Gran # Nucleated RBCs # Immature Plt Fraction Sodium Potassium Chloride Carbon Dioxide Anion Gap BUN Creatinine GFR Calculation BUN/Creatinine Ratio Glucose POC Glucose 79 Hemoglobin A1c 5.7 Calculated Osmolality Lactic Acid 2.1 H Calcium 02/12/17 02/12/17 02/13/17 13:07 20:49 04:28 WBC 7.5 RBC 4.06 Hgb 11.9 L Hct 36.2 L MCV 89.2 MCH 29 MCHC 32.9 RDW 18.1 H Plt Count 109 L MPV 10.8 Neut % (Auto) 75.0 H Lymph % (Auto) 12.9 L Arthur % (Auto) 9.1 Eos % (Auto) 2.1 Baso % (Auto) 0.5 Neut # (Auto) 5.6 Lymph # (Auto) 1.0 L Arthur # (Auto) 0.7 Eos # (Auto) 0.2 Baso # (Auto) 0.0 Immature Gran % 0.4 Nucleated RBC % 0.5 Immature Gran # 0.03 Nucleated RBCs # 0.04 Immature Plt Fraction 0.0 Sodium Potassium Chloride Carbon Dioxide Anion Gap BUN Creatinine GFR Calculation BUN/Creatinine Ratio Glucose POC Glucose 119 H Hemoglobin A1c Calculated Osmolality Lactic Acid 2.1 H Calcium 02/13/17 02/13/17 04:28 07:51 WBC RBC Hgb Hct MCV MCH MCHC RDW Plt Count MPV Neut % (Auto) Lymph % (Auto) Arthur % (Auto) Eos % (Auto) Baso % (Auto) Neut # (Auto) Lymph # (Auto) Arthur # (Auto) Eos # (Auto) Baso # (Auto) Immature Gran % Nucleated RBC % Immature Gran # Nucleated RBCs # Immature Plt Fraction Sodium 139 Potassium 3.6 Chloride 102 Carbon Dioxide 27 Anion Gap 13.6 BUN 23 H D Creatinine 5.10 H GFR Calculation 13 BUN/Creatinine Ratio 4.00 L Glucose 109 H POC Glucose 96 Hemoglobin A1c Calculated Osmolality 281.5 Lactic Acid Calcium 8.3 L
--- NOTE | 2017-02-13 12:01 | Nephrology Progress Note ---
Nephrology - PN: Subj Interval history: Patient complains of back and leg pain. Review of systems pulmonary-he complains of shortness of breath Physical exam general the patient is in no acute distress Assessment/plan 1. Abdominal pain-this is better 2. A. fib with rapid ventricular response-the patient's heart rate is better controlled he continues on a diltiazem infusion 3. Diabetes mellitus 4. ESRD-we will continue hemodialysis support 5. Musculoskeletal pain-perhaps this is related to some hypoperfusion associated with his cardiac dysrhythmias recently. Exam (PN)-Nephrology - Vital Signs Vital signs: Period Temp Pulse Resp BP Sys/Santana Pulse Ox Last 24 Hr 97.1 F-98.4 F 80-114 12-22 69-161/44-117 15-100 - Lab 02/13/17 04:28 02/13/17 04:28 Most recent lab results Calcium 8.3 MG/DL (8.5-10.1) L 02/13/17 04:28 Assessment and Plan (1) Abdominal pain Status: Acute Assessment and plan: Patient's abdominal pain seems to be improved, the patient states he ate some white dirt yesterday and thinks that this may have been the cause to his abdominal pain, CT scan of the abdomen did not seem to reveal any acute pathology to explain his pain. Current Visit: Yes (2) Atrial fibrillation with RVR Status: Acute Assessment and plan: Continue Cardizem for rate control Current Visit: Yes (3) Diabetes mellitus Status: Chronic Assessment and plan: Monitor with a sliding scale Current Visit: No Qualifiers: Diabetes mellitus type: type 2 Diabetes mellitus complication status: with hyperosmolarity (4) End stage renal disease on dialysis Status: Chronic Assessment and plan: We will plan on hemodialysis today. Current Visit: No
[2017-02-13] MEDS: ASPIRIN CHEW 81 MG TABLET PO SCH (12:32)
[2017-02-13] MEDS: METOPROLOL TARTRATE 25 MG TABLET PO SCH ×3 (12:32→21:08)
[2017-02-13] MEDS: ROSUVASTATIN 20 MG TABLET PO SCH (12:32)
[2017-02-13] MEDS: ENOXAPARIN 30 MG/0.3 ML SYRINGE SUBCUT SCH (12:33)
[2017-02-13 13:20] LABS: ABG Base Excess -3.3 MMOL/L (-2.5-2.5); ABG HCO3 21.4 MMOL/L (20-26); ABG Oxygen Saturation 89.1 % (95-100); ABG PCO2 37.4 MM HG (35-48); ABG PH 7.375 (7.35-7.45); ABG PO2 53.1 MM HG (80-95); ABG TCO2 22.5 MMOL/L (23-27); Allen Test Positive
--- NOTE | 2017-02-13 13:54 | XRay Report ---
XR chest 1V portable Indication: Shortness of breath. Chest one view: Comparison yesterday shows stable pacemaker device, cardiomegaly, postoperative changes median sternotomy and continued coarsened interstitial markings of the lungs. Hazy obscuration of left hemidiaphragm slightly more pronounced. Impression: Slightly worsened left basilar atelectasis or pneumonia superimposed on CHF. PROCEDURE INTERPRETED AT [facility] DEPARTMENT OF RADIOLOGY Final Report Signed by: Jimy Puckett M.D.
[2017-02-13] MEDS: MORPHINE 2 MG/1 ML SYRINGE IV PRN ×2 (16:01→20:11)
[2017-02-13] MEDS ORDERED: FUROSEMIDE INJ 200 MG in SODIUM CHLORIDE 0.9% 50 ML IV ONE (18:03)
[2017-02-13 20:34] LABS: ABG Base Excess -3.7 MMOL/L (-2.5-2.5); ABG HCO3 22.4 MMOL/L (20-26); ABG Oxygen Saturation 92.6 % (95-100); ABG PCO2 44.1 MM HG (35-48); ABG PH 7.323 (7.35-7.45); ABG PO2 67.2 MM HG (80-95); ABG TCO2 23.7 MMOL/L (23-27); Allen Test Positive; Pt O2 Delivery Device Venturi Mask
[2017-02-14] MEDS: ACETAMINOPHEN 325 MG TABLET PO PRN ×2 (00:47→21:06)
[2017-02-14] MEDS: NITROGLYCERIN 2% OINT 1 INCH/GM PACK TOP SCH ×5 (01:27→17:51)
[2017-02-14] MEDS: MORPHINE 2 MG/1 ML SYRINGE IV PRN ×2 (03:27→20:49)
[2017-02-14 06:14] LABS: Basophils % 0.4 % (0.0-0.8); Eosinophils # 0.1 10*3/uL (0.0-0.87); Hematocrit 35.4 VOL% (42.0-52.0); Hemoglobin 11.8 GM/DL (14.0-18.0); Immature Granulocytes % 0.4 %; Immature Granulocytes Absolute 0.03 #; Lymphocytes # 1.2 10*3/uL (1.4-4.0); Lymphocytes % 17.2 % (21.2-54.2); Mean Corpuscular HGB Conc 33.3 GM/DL (32-36); Mean Corpuscular Hemoglobin 29 PG (27-34); Mean Corpuscular Volume 88.3 FL (87-102); Mean Platelet Volume 11.2 FL (9.6-12.0); Monocytes # 0.7 10*3/uL (0.11-0.8); Monocytes % 10.7 % (1.7-12.7); NRBC # 0.05 10*3/uL; Neutrophils # 4.8 10*3/uL (1.4-7.4); Neutrophils % 69.3 % (38.7-73.9); Platelet Count 113 T/CUMM (130-400); Red Blood Count 4.01 MC/CUMM (3.8-5.5); Red Cell Distribution Width 17.7 % (9.3-17.3); White Blood Count 6.9 T/CUMM (4-12)
[2017-02-14] MEDS: LEVOTHYROXINE 75 MCG TABLET PO SCH (06:35)
[2017-02-14 06:43] LABS: Calcium 8.7 MG/DL (8.5-10.1); Osmolality,Calculated 281.7 MOS/KG (273-304); Potassium 3.8 MMOL/L (3.5-5.1)
--- NOTE | 2017-02-14 07:10 | Hospitalist Progress Note ---
Assessment and Plan - Time spent with patient Time spent with patient: Less than 30 minutes (1) Atrial fibrillation with rapid ventricular response Status: Acute Assessment and plan: 02/13/17: Patient continues on IV Cardizem infusion. Echocardiogram has been obtained and results noted. Cardiology has been consulted to assist with his care. 02/14/17: Cardizem has been discontinued and rate is controlled. Cardiology is consulted and following with his care. Current Visit: No (2) ESRD (end stage renal disease) on dialysis Problem details: No acute indication for dialysis at this time. Status: Chronic Assessment and plan: 02/13/17: Nephrology is following and assisting with hemodialysis. 02/14/17: Patient underwent hemodialysis yesterday. Appreciate nephrology assistance. Current Visit: No (3) IDDM (insulin dependent diabetes mellitus) Status: Chronic Assessment and plan: Currently on Accu-Cheks with sliding scale insulin only. Continue current management. Current Visit: No (4) Abdominal pain Status: Acute Assessment and plan: Abdominal pain has resolved. Previous workup has been negative. Current Visit: Yes (5) Hypothyroidism Status: Chronic Assessment and plan: Continuing thyroid replacement therapy. Current Visit: Yes (6) Hypertension Status: Chronic Assessment and plan: Blood pressure currently stable on IV Cardizem only. Current Visit: No Qualifiers: Hypertension type: essential hypertension Qualified Code(s): I10 - Essential (primary) hypertension (7) Hypotension Status: Acute Assessment and plan: This is resolved with initiation of fluids. His antihypertensive home medications been withheld and he is being maintained on IV Cardizem only. Current Visit: No Hospitalist: Subjective Interval history: Mr. Nye is doing well and has no complaints at this time. Cardizem infusion has been discontinued and his rate has been controlled. He denies any chest pain or shortness of breath. He is tolerating his diet. Exam - Constitutional Vitals: Period Temp Pulse Resp BP Sys/Santana Pulse Ox Last 24 Hr 97.4 F-98.6 F 56-97 12-28 71-160/36-117 15- General appearance: no acute distress - Head Head exam: Present: normocephalic, atraumatic - Eye Eye exam: Present: EOMI Pupils: Present: CHRIS - ENT ENT exam: Present: normal exam - Neck Neck exam: Present: normal inspection - Respiratory Respiratory exam: Present: clear to auscultation bilaterally. Absent: rales, rhonchi, wheezes - Cardiovascular Cardiovascular exam: Present: irregular rhythm. Absent: tachycardia - GI/Abdominal GI/Abdominal exam: Present: normal bowel sounds, soft. Absent: mass, tenderness , rebound - Extremities Exam Extremities exam: Absent: calf tenderness, edema - Neurological Exam Neurological exam: Present: alert, oriented X3, CN II-XII intact. Absent: motor sensory deficit - Psychiatric Psychiatric exam: Present: normal affect, normal mood. Absent: agitated, anxious - Skin Skin exam: Present: warm, dry. Absent: erythema Results - Labs CBC & BMP: 02/14/17 05:52 02/14/17 05:52 Lab Results: I have reviewed the past 24 hour labs
[2017-02-14] MEDS: INSULIN LISPRO 100 UNIT/ML SUBCUT SCH ×4 (08:18→20:27)
[2017-02-14] MEDS: FAMOTIDINE 20 MG TABLET PO SCH ×2 (08:27→20:31)
--- NOTE | 2017-02-14 08:27 | Cardiology Progress Note ---
Assessment and Plan (1) Abdominal pain Status: Acute Assessment and plan: 1. 71-year-old with multiple medical problems including hypertension, dyslipidemia, diabetes, coronary artery disease status post 2 separate CABG surgeries most recently December 2012, non-STEMI, ESRD, PAD (previous fifth toe amputation and multiple left SFA intervention/stent by IR) apparent permanent atrial fibrillation status post pacemaker earlier this year due to bradycardia, who present with abdominal discomfort atrial fibrillation RVR and hypotension which required pressors initially. 2. He seems to have improved clinically since last night, and rate is controlled on diltiazem infusion. 3. Echocardiogram shows normal ejection fraction with EF 55% with moderate to severe MR and TR and severe pulmonary hypertension 4. Add metoprolol short acting 25 mg 3 times daily to help facilitate gradually weaning him off IV diltiazem. 5. Taken off anticoagulation long ago due to significant bleeding problems per 6. High intensity statin therapy 7. He is followed by Dr. Pj gray in clinic 8. We will follow with you. February 14, 2017: 1. Atrial fibrillation rate is now controlled; change to long-acting Toprol 50 mg twice daily; if this causes symptoms it could be did reduce to 25 g twice daily. 2. Normal LV systolic function with moderate to severe MR and TR as well as for lipoma hypertension were noted on echo cardiac 3. Continue high intensity statin given his significant CAD/PAD history 4. ESRD Current Visit: Yes (2) Atrial fibrillation with RVR Status: Acute Current Visit: Yes (3) Hypotension Status: Acute Current Visit: No (4) Diabetes mellitus Status: Chronic Current Visit: No Qualifiers: Diabetes mellitus type: type 2 Diabetes mellitus complication status: with kidney complications Diabetes mellitus mcc insulin use: with mcc use Chronic kidney disease stage: on chronic dialysis (5) ESRD (end stage renal disease) on dialysis Problem details: No acute indication for dialysis at this time. Status: Chronic Current Visit: No Cardiology - PN: Subj Interval history: Mr. Nye is sitting up eating breakfast. He has no complaints. He denies shortness of breath chest pain or palpitations or dizziness. He no longer has any belly pain reports his feet are not hurting. Exam (Progress Note) - Constitutional Vitals: Period Temp Pulse Resp BP Sys/Santana Pulse Ox Last 24 Hr 97.4 F-98.6 F 56-90 12-28 71-160/36-110 88-97 General appearance: normal weight, no acute distress - Head Head exam: Present: normal inspection, normocephalic, atraumatic - Respiratory Respiratory exam: Present: rales. Absent: stridor, wheezes - Cardiovascular Cardiovascular exam: Present: irregular rhythm. Absent: diastolic murmur, rubs - GI/Abdominal GI/Abdominal exam: Present: soft. Absent: tenderness - Extremities Exam Extremities exam: Present: other (Somewhat cool feet). Absent: edema Result/EKG - Labs CBC & BMP: 02/14/17 05:52 02/14/17 05:52 Labs: Laboratory Results - last 24 hr 02/13/17 02/13/17 02/13/17 11:48 13:15 16:15 WBC RBC Hgb Hct MCV MCH MCHC RDW Plt Count MPV Neut % (Auto) Lymph % (Auto) Esmeralda % (Auto) Eos % (Auto) Baso % (Auto) Neut # (Auto) Lymph # (Auto) Esmeralda # (Auto) Eos # (Auto) Baso # (Auto) Immature Gran % Nucleated RBC % Immature Gran # Nucleated RBCs # Immature Plt Fraction ABG pH 7.375 ABG pCO2 37.4 ABG pO2 53.1 L ABG HCO3 21.4 ABG Total CO2 22.5 L ABG O2 Saturation 89.1 L ABG Base Excess -3.3 L FiO2 36.00 Sodium Potassium Chloride Carbon Dioxide Anion Gap BUN Creatinine GFR Calculation BUN/Creatinine Ratio Glucose POC Glucose 66 L 129 H Calculated Osmolality Calcium 02/13/17 02/13/17 02/14/17 20:07 20:23 05:52 WBC 6.9 RBC 4.01 Hgb 11.8 L Hct 35.4 L MCV 88.3 MCH 29 MCHC 33.3 RDW 17.7 H Plt Count 113 L MPV 11.2 Neut % (Auto) 69.3 Lymph % (Auto) 17.2 L Esmeralda % (Auto) 10.7 Eos % (Auto) 2.0 Baso % (Auto) 0.4 Neut # (Auto) 4.8 Lymph # (Auto) 1.2 L Esmeralda # (Auto) 0.7 Eos # (Auto) 0.1 Baso # (Auto) 0.0 Immature Gran % 0.4 Nucleated RBC % 0.7 Immature Gran # 0.03 Nucleated RBCs # 0.05 Immature Plt Fraction 0.0 ABG pH 7.323 L ABG pCO2 44.1 ABG pO2 67.2 L ABG HCO3 22.4 ABG Total CO2 23.7 ABG O2 Saturation 92.6 L ABG Base Excess -3.7 L FiO2 40.00 Sodium Potassium Chloride Carbon Dioxide Anion Gap BUN Creatinine GFR Calculation BUN/Creatinine Ratio Glucose POC Glucose 162 H Calculated Osmolality Calcium 02/14/17 02/14/17 05:52 07:56 WBC RBC Hgb Hct MCV MCH MCHC RDW Plt Count MPV Neut % (Auto) Lymph % (Auto) Esmeralda % (Auto) Eos % (Auto) Baso % (Auto) Neut # (Auto) Lymph # (Auto) Esmeralda # (Auto) Eos # (Auto) Baso # (Auto) Immature Gran % Nucleated RBC % Immature Gran # Nucleated RBCs # Immature Plt Fraction ABG pH ABG pCO2 ABG pO2 ABG HCO3 ABG Total CO2 ABG O2 Saturation ABG Base Excess FiO2 Sodium 138 Potassium 3.8 Chloride 103 Carbon Dioxide 24 Anion Gap 14.8 BUN 31 H Creatinine 6.50 H GFR Calculation 10 BUN/Creatinine Ratio 4.00 L Glucose 92 POC Glucose 77 Calculated Osmolality 281.7 Calcium 8.7
[2017-02-14] MEDS: METOPROLOL TARTRATE 25 MG TABLET PO SCH (08:28)
[2017-02-14] MEDS: ALLOPURINOL 300 MG TABLET PO SCH (08:28)
[2017-02-14] MEDS: ASPIRIN CHEW 81 MG TABLET PO SCH (08:28)
[2017-02-14] MEDS: CALCIUM ACETATE 667 MG CAPSULE PO SCH ×3 (08:28→17:51)
[2017-02-14] MEDS: PANTOPRAZOLE 40 MG TABLET PO SCH (08:28)
[2017-02-14] MEDS: METOCLOPRAMIDE 5 MG TABLET PO SCH ×3 (08:28→17:51)
[2017-02-14] MEDS: DILTIAZEM INJ 100 MG in SODIUM CHLORIDE 0.9% 100 ML IV SCH (08:29)
[2017-02-14] MEDS: ROSUVASTATIN 20 MG TABLET PO SCH (08:29)
[2017-02-14] MEDS: MULTIVITAMIN (BEROCCA) TABLET PO SCH (08:29)
[2017-02-14] MEDS: METOPROLOL SUCCINATE XL 50 MG TABLET PO SCH ×2 (09:27→20:31)
--- NOTE | 2017-02-14 10:03 | Nephrology Progress Note ---
Nephrology - PN: Subj Interval history: Patient complains of feeling weak. Review of systems pulmonary complains of shortness of breath Physical exam general the patient is chronically ill-appearing, he has no lower extremity edema, he is requiring facemask oxygen with an FiO2 of 40% his O2 sat is fluctuating between the high 80s and low 90s his ABG yesterday revealed a PaO2 of 67 Chest x-ray shows some increased interstitial markings throughout Assessment/plan 1. end-stage renal disease-this patient was dialyzed this past Wednesday, will try to hold off on hd until tomorrow. 2. Hypoxia-this patient has moderate to severe mitral and tricuspid regurgitation with pulmonary hypertension, I think this makes his respiratory status extremely tenuous, hemodialysis with ultrafiltration may improve his respiratory status however his his circulatory status may deteriorate related to a decrease in his intravascular volume. 3. Cardiomyopathy this patient has severe valvular heart disease, pulmonary hypertension his ejection fraction is around 55% 4. Cardiac dysrhythmia-patient's rate is fairly well controlled presently. Exam (PN)-Nephrology - Vital Signs Vital signs: Period Temp Pulse Resp BP Sys/Santana Pulse Ox Last 24 Hr 97.4 F-98.6 F 56-90 12-28 71-160/36-110 88-97 - Lab 02/14/17 05:52 02/14/17 05:52 Most recent lab results ABG pH 7.323 (7.35-7.45) L 02/13/17 20:23 ABG pCO2 44.1 MM HG (35-48) 02/13/17 20:23 ABG pO2 67.2 MM HG (80-95) L 02/13/17 20:23 ABG HCO3 22.4 MMOL/L (20-26) 02/13/17 20:23 ABG O2 Saturation 92.6 % (95-100) L 02/13/17 20:23 Calcium 8.7 MG/DL (8.5-10.1) 02/14/17 05:52 Assessment and Plan (1) Abdominal pain Status: Acute Assessment and plan: Patient's abdominal pain seems to be improved, the patient states he ate some white dirt yesterday and thinks that this may have been the cause to his abdominal pain, CT scan of the abdomen did not seem to reveal any acute pathology to explain his pain. Current Visit: Yes (2) Atrial fibrillation with RVR Status: Acute Assessment and plan: Continue Cardizem for rate control Current Visit: Yes (3) Diabetes mellitus Status: Chronic Assessment and plan: Monitor with a sliding scale Current Visit: No Qualifiers: Diabetes mellitus type: type 2 Diabetes mellitus complication status: with hyperosmolarity (4) End stage renal disease on dialysis Status: Chronic Assessment and plan: We will plan on hemodialysis today. Current Visit: No
[2017-02-14] MEDS: SODIUM CHLORIDE 0.9% 1,000 ML IV SCH (11:40)
[2017-02-14] MEDS: ENOXAPARIN 30 MG/0.3 ML SYRINGE SUBCUT SCH (12:23)
[2017-02-14] MEDS ORDERED: LORazepam 2 MG/1 ML VIAL IV ONE (21:25)
[2017-02-14] MEDS ORDERED: LORazepam 2 MG/1 ML VIAL IV PRN (21:26)
[2017-02-15] MEDS: NITROGLYCERIN 2% OINT 1 INCH/GM PACK TOP SCH ×2 (00:50→06:22)
[2017-02-15 04:04] LABS: ABG Base Excess -5.2 MMOL/L (-2.5-2.5); ABG HCO3 20.1 MMOL/L (20-26); ABG Oxygen Saturation 95.2 % (95-100); ABG PCO2 43.2 MM HG (35-48); ABG PO2 81.9 MM HG (80-95); ABG TCO2 18.7 MMOL/L (23-27); Allen Test Positive; Pt O2 Delivery Device Venturi Mask
[2017-02-15 06:16] LABS: Basophils # 0.1 10*3/uL (0.0-0.2); Basophils % 0.7 % (0.0-0.8); Eosinophils # 0.2 10*3/uL (0.0-0.87); Eosinophils % 1.8 % (0.00-10.9); Hematocrit 35.2 VOL% (42.0-52.0); Hemoglobin 11.8 GM/DL (14.0-18.0); Immature Granulocytes % 0.2 %; Immature Granulocytes Absolute 0.02 #; Lymphocytes % 12.4 % (21.2-54.2); Mean Corpuscular HGB Conc 33.5 GM/DL (32-36); Mean Corpuscular Hemoglobin 30 PG (27-34); Mean Corpuscular Volume 88.9 FL (87-102); Monocytes # 0.9 10*3/uL (0.11-0.8); Monocytes % 10.7 % (1.7-12.7); NRBC # 0.04 10*3/uL; Neutrophils % 74.2 % (38.7-73.9); Platelet Count 108 T/CUMM (130-400); Red Blood Count 3.96 MC/CUMM (3.8-5.5); Red Cell Distribution Width 17.8 % (9.3-17.3); White Blood Count 8.1 T/CUMM (4-12)
[2017-02-15 06:48] LABS: Calcium 9.3 MG/DL (8.5-10.1); Osmolality,Calculated 282.8 MOS/KG (273-304); Potassium 4.1 MMOL/L (3.5-5.1)
--- NOTE | 2017-02-15 06:55 | Nephrology Progress Note ---
Nephrology - PN: Subj Interval history: Patient was resting comfortably this morning however when did awaken him he became moderately agitated I think complaining that he was not well then he drifted off to sleep again. Review of systems pulmonary-the nurse relates that his O2 sats are about 95% when he is resting comfortably and not moving about. Physical exam general the patient's chronically ill-appearing, heart is regular rate and rhythm, he has no pitting edema, lungs reveal some bilateral crackles, abdomen is soft with positive bowel sounds Assessment/plan 1. Pulmonary hypertension with mitral and tricuspid regurgitation that is moderate to severe 2. Cardiac dysrhythmia-patient's heart rate is controlled much better now 3. Diabetes mellitus 4. End-stage renal disease-we will plan on hemodialysis today, will ultrafilter maximally as tolerated and allowed by his blood pressure. Exam (PN)-Nephrology - Vital Signs Vital signs: Period Temp Pulse Resp BP Sys/[place] Pulse Ox Last 24 Hr 97.5 F-98.6 F 88-110 12-22 85-153/32-105 83-98 - Lab 02/15/17 05:57 02/15/17 05:57 Most recent lab results ABG pH 7.300 (7.35-7.45) L 02/15/17 03:55 ABG pCO2 43.2 MM HG (35-48) 02/15/17 03:55 ABG pO2 81.9 MM HG (80-95) 02/15/17 03:55 ABG HCO3 20.1 MMOL/L (20-26) 02/15/17 03:55 ABG O2 Saturation 95.2 % (95-100) 02/15/17 03:55 Calcium 9.3 MG/DL (8.5-10.1) 02/15/17 05:57 Assessment and Plan (1) Abdominal pain Status: Acute Assessment and plan: Patient's abdominal pain seems to be improved, the patient states he ate some white dirt yesterday and thinks that this may have been the cause to his abdominal pain, CT scan of the abdomen did not seem to reveal any acute pathology to explain his pain. Current Visit: Yes (2) Atrial fibrillation with RVR Status: Acute Assessment and plan: Continue Cardizem for rate control Current Visit: Yes (3) Diabetes mellitus Status: Chronic Assessment and plan: Monitor with a sliding scale Current Visit: No Qualifiers: Diabetes mellitus type: type 2 Diabetes mellitus complication status: with hyperosmolarity (4) End stage renal disease on dialysis Status: Chronic Assessment and plan: We will plan on hemodialysis today. Current Visit: No
--- NOTE | 2017-02-15 07:24 | Cardiology Progress Note ---
Assessment and Plan - Time spent with patient Time spent with patient: Greater than 30 minutes (Exam interview chart review documentation) (1) Atrial fibrillation with RVR Status: Acute Assessment and plan: The patient will need anticoagulation as soon as it is clear that he does not need further procedures if there is no absolute contraindication. He does have anemia that is likely multifactorial. Most likely this is from his end-stage renal disease and is relatively mild. His altered mental status is concerning I am not sure is his baseline although this is the first morning I have seen the patient. Current Visit: Yes (2) ESRD (end stage renal disease) on dialysis Status: Chronic Current Visit: Yes (3) Hypothyroidism Status: Chronic Current Visit: Yes (4) Coronary artery disease Status: Chronic Current Visit: No Qualifiers: Coronary Disease-Associated Artery/Lesion type: bypass graft [place] vs. transplanted heart: [place] heart Associated angina: without angina Qualified Code(s): I25.810 - Atherosclerosis of coronary artery bypass graft(s) without angina pectoris Cardiology - PN: Subj Interval history: Mr. Nye is a 71-year-old patient primarily follows aaron Oliva who is admitted to the ICU with abdominal pain. He has end-stage renal disease his 2 coronary bypass grafting's in the past he has a preserved ejection fraction and moderate severe mitral regurgitation as well as tricuspid regurgitation is at least moderate and pulmonary hypertension. I saw and examined the patient in the ICU. He is not oriented. He states that he is in [place]. He is not very conversant but answers yes and no to close any questions denying dyspnea or chest pain. Exam (Progress Note) - Constitutional Vitals: Period Temp Pulse Resp BP Sys/[place] Pulse Ox Last 24 Hr 97.5 F-98.6 F 88-110 12-22 85-153/32-105 83-98 General appearance: normal weight - Head Head exam: Present: normal inspection - Eye Eye exam: Present: EOMI, other (Arcus senilis) Pupils: Present: CHRIS - Neck Neck exam: Present: normal inspection - Respiratory Respiratory exam: Present: clear to auscultation bilaterally (Very poor effort) - Cardiovascular Cardiovascular exam: Present: regular rate and rhythm (Soft murmur of mitral regurgitation prominent tricuspid regurgitation at the right sternal border) - GI/Abdominal GI/Abdominal exam: Present: tenderness (Firm with diminished but present bowel sounds) - Extremities Exam Extremities exam: Present: normal inspection. Absent: edema - Neurological Exam Neurological exam: Present: other (Psychomotor slowing not oriented, follows commands slowly moves all extremities) - Psychiatric Psychiatric exam: Present: flat affect - Skin Skin exam: Present: normal color, warm, dry Result/EKG - Labs CBC & BMP: 02/15/17 05:57 02/15/17 05:57 Labs: Laboratory Results - last 24 hr 02/14/17 02/14/17 02/14/17 07:56 11:39 16:38 WBC RBC Hgb Hct MCV MCH MCHC RDW Plt Count MPV Neut % (Auto) Lymph % (Auto) [place] % (Auto) Eos % (Auto) Baso % (Auto) Neut # (Auto) Lymph # (Auto) [place] # (Auto) Eos # (Auto) Baso # (Auto) Immature Gran % Nucleated RBC % Immature Gran # Nucleated RBCs # Immature Plt Fraction ABG pH ABG pCO2 ABG pO2 ABG HCO3 ABG Total CO2 ABG O2 Saturation ABG Base Excess FiO2 Sodium Potassium Chloride Carbon Dioxide Anion Gap BUN Creatinine GFR Calculation BUN/Creatinine Ratio Glucose POC Glucose 77 97 106 Calculated Osmolality Calcium 02/14/17 02/15/17 02/15/17 20:19 03:28 03:55 WBC RBC Hgb Hct MCV MCH MCHC RDW Plt Count MPV Neut % (Auto) Lymph % (Auto) [place] % (Auto) Eos % (Auto) Baso % (Auto) Neut # (Auto) Lymph # (Auto) [place] # (Auto) Eos # (Auto) Baso # (Auto) Immature Gran % Nucleated RBC % Immature Gran # Nucleated RBCs # Immature Plt Fraction ABG pH 7.300 L ABG pCO2 43.2 ABG pO2 81.9 ABG HCO3 20.1 ABG Total CO2 18.7 L ABG O2 Saturation 95.2 ABG Base Excess -5.2 L FiO2 40.00 Sodium Potassium Chloride Carbon Dioxide Anion Gap BUN Creatinine GFR Calculation BUN/Creatinine Ratio Glucose POC Glucose 85 115 H Calculated Osmolality Calcium 02/15/17 02/15/17 05:57 05:57 WBC 8.1 RBC 3.96 Hgb 11.8 L Hct 35.2 L MCV 88.9 MCH 30 MCHC 33.5 RDW 17.8 H Plt Count 108 L MPV 11.0 Neut % (Auto) 74.2 H Lymph % (Auto) 12.4 L [place] % (Auto) 10.7 Eos % (Auto) 1.8 Baso % (Auto) 0.7 Neut # (Auto) 6.0 Lymph # (Auto) 1.0 L [place] # (Auto) 0.9 H Eos # (Auto) 0.2 Baso # (Auto) 0.1 Immature Gran % 0.2 Nucleated RBC % 0.5 Immature Gran # 0.02 Nucleated RBCs # 0.04 Immature Plt Fraction 0.0 ABG pH ABG pCO2 ABG pO2 ABG HCO3 ABG Total CO2 ABG O2 Saturation ABG Base Excess FiO2 Sodium 137 Potassium 4.1 Chloride 102 Carbon Dioxide 23 Anion Gap 16.1 H BUN 38 H Creatinine 8.00 H GFR Calculation 8 BUN/Creatinine Ratio 4.00 L Glucose 108 H POC Glucose Calculated Osmolality 282.8 Calcium 9.3
[2017-02-15] MEDS: DILTIAZEM INJ 100 MG in SODIUM CHLORIDE 0.9% 100 ML IV SCH ×2 (07:44→20:49)
--- NOTE | 2017-02-15 10:55 | Hospitalist Progress Note ---
Assessment and Plan (1) ESRD (end stage renal disease) on dialysis Status: Chronic Assessment and plan: The patient has pulmonary edema present. The patient will receive dialysis today with attention to ultrafiltering the volume as much as possible. Current Visit: No (2) Atrial fibrillation with RVR Status: Acute Current Visit: Yes Hospitalist: Subjective Interval history: Mr. Nye was admitted to hospital with atrial fibrillation and rapid ventricular response. The patient has considerable valvular heart disease. The patient has end-stage renal disease and takes dialysis on Wednesday and Wednesday. The patient's last dialysis treatment was on Wednesday. He will have dialysis again today. The patient as volume overload, examination showing pulmonary edema, and shortness of breath with hypoxia. The patient has difficulty cooperating with therapy due to shortness of breath. Exam - Constitutional Vitals: Period Temp Pulse Resp BP Sys/[place] Pulse Ox Last 24 Hr 97.5 F-98.6 F 86-110 12-22 79-153/32-105 83-98 Exam: Constitutional System: Moderate distress. No tremulousness. The patient is having difficulty cooperating with facemask due to shortness of breath Head: Normocephalic, atraumatic. Ears, Nose and Throat System: No evidence of Otitis or Mastoiditis. No epistaxis or discharge Eyes System: Pupils equal, round, and reactive. Extraocular muscles intact. Neck: Supple, without adenopathy, 2+ jugular venous distention. No thyromegaly , neck mass, or prior surgery apparent. Respiratory System: Chest moderate pulmonary edema to auscultation. Cardiovascular System: Heart with regular rate and rhythm. Systolic murmur GI System: Abdomen soft, nontender. Normo active bowel sounds present. Musculoskeletal System: limbs with 1+ pedal edema. Full distal pulses. Neurological System: No discernable sensory deficit. No aphasia Psychiatric System: Conversation is disoriented Results - Labs CBC & BMP: 02/15/17 05:57 02/15/17 05:57 Lab Results: I have reviewed the past 24 hour labs
[2017-02-15] MEDS: INSULIN LISPRO 100 UNIT/ML SUBCUT SCH ×4 (11:35→22:48)
[2017-02-15] MEDS: ENOXAPARIN 30 MG/0.3 ML SYRINGE SUBCUT SCH (12:59)
[2017-02-15] MEDS: FAMOTIDINE 20 MG TABLET PO SCH (15:32)
[2017-02-15] MEDS: LEVOTHYROXINE 75 MCG TABLET PO SCH (15:32)
[2017-02-15] MEDS: ROSUVASTATIN 20 MG TABLET PO SCH (15:33)
[2017-02-15] MEDS: MULTIVITAMIN (BEROCCA) TABLET PO SCH (15:33)
[2017-02-15] MEDS: ASPIRIN CHEW 81 MG TABLET PO SCH (15:33)
[2017-02-15] MEDS: CALCIUM ACETATE 667 MG CAPSULE PO SCH ×2 (15:33→17:41)
[2017-02-15] MEDS: METOCLOPRAMIDE 5 MG TABLET PO SCH ×2 (15:33→17:41)
[2017-02-15] MEDS: PANTOPRAZOLE 40 MG TABLET PO SCH (15:34)
[2017-02-15] MEDS: ALLOPURINOL 300 MG TABLET PO SCH (15:34)
[2017-02-15] MEDS: METOPROLOL SUCCINATE XL 50 MG TABLET PO SCH ×2 (15:34→20:43)
[2017-02-15] MEDS: IRON SUCROSE 100 MG/5 ML VIAL IV SCH (18:40)
[2017-02-15] MEDS: HALOPERIDOL 5 MG/ML AMP IM PRN (22:00)
[2017-02-16] MEDS: FAMOTIDINE 20 MG/2 ML VIAL IV SCH ×2 (00:18→11:51)
[2017-02-16] MEDS: LORazepam 2 MG/1 ML VIAL IV PRN ×2 (01:04→20:09)
[2017-02-16] MEDS: HALOPERIDOL 5 MG/ML AMP IM PRN ×3 (03:15→22:45)
[2017-02-16 05:10] LABS: Basophils # 0.1 10*3/uL (0.0-0.2); Basophils % 0.6 % (0.0-0.8); Eosinophils # 0.2 10*3/uL (0.0-0.87); Eosinophils % 2.6 % (0.00-10.9); Hematocrit 35.4 VOL% (42.0-52.0); Hemoglobin 11.8 GM/DL (14.0-18.0); Immature Granulocytes % 0.3 %; Immature Granulocytes Absolute 0.02 #; Lymphocytes # 1.1 10*3/uL (1.4-4.0); Lymphocytes % 13.6 % (21.2-54.2); Mean Corpuscular HGB Conc 33.3 GM/DL (32-36); Mean Corpuscular Hemoglobin 29 PG (27-34); Mean Corpuscular Volume 87.4 FL (87-102); Mean Platelet Volume 10.1 FL (9.6-12.0); Monocytes # 1.2 10*3/uL (0.11-0.8); Monocytes % 15.6 % (1.7-12.7); NRBC # 0.02 10*3/uL; Neutrophils # 5.2 10*3/uL (1.4-7.4); Neutrophils % 67.3 % (38.7-73.9); Platelet Count 96 T/CUMM (130-400); Red Blood Count 4.05 MC/CUMM (3.8-5.5); Red Cell Distribution Width 17.5 % (9.3-17.3); White Blood Count 7.8 T/CUMM (4-12)
[2017-02-16 05:40] LABS: Eosinophils 2 % (0-10); Lymphocytes 13 % (20-55); Platelet Estimate Decreased; Segmented Neutrophils 71 % (50-85); Total Cells Counted 100
[2017-02-16 05:41] LABS: Calcium 9.1 MG/DL (8.5-10.1); Hypochromasia 1+; Magnesium 2.6 MG/DL (1.8-2.4); Osmolality,Calculated 276.8 MOS/KG (273-304); Potassium 3.8 MMOL/L (3.5-5.1)
[2017-02-16] MEDS ORDERED: SODIUM CHLORIDE 0.9% 500 ML IV ONE (06:15)
--- NOTE | 2017-02-16 06:48 | Cardiology Progress Note ---
Assessment and Plan (1) Atrial fibrillation with RVR Status: Acute Assessment and plan: The patient will need anticoagulation as soon as it is clear that he does not need further procedures if there is no absolute contraindication. He does have anemia that is likely multifactorial. Most likely this is from his end-stage renal disease and is relatively mild. His mental status is improved. There appears to be no impending need for procedures. I will again look for his previous history of acute blood loss anemia to ensure there is no contraindication to anticoagulation. Current Visit: Yes (2) ESRD (end stage renal disease) on dialysis Status: Chronic Current Visit: Yes (3) Hypothyroidism Status: Chronic Current Visit: Yes (4) Coronary artery disease Status: Chronic Current Visit: No Qualifiers: Coronary Disease-Associated Artery/Lesion type: bypass graft [place] vs. transplanted heart: [place] heart Associated angina: without angina Qualified Code(s): I25.810 - Atherosclerosis of coronary artery bypass graft(s) without angina pectoris (5) Mitral regurgitation Status: Acute Current Visit: Yes Cardiology - PN: Subj Interval history: Mr. Nye continues to be disoriented however he is more conversant and responsive today. He denies any chest pain or shortness of breath. His heart rate is better control his blood pressure is acceptable. Exam (Progress Note) - Constitutional Vitals: Period Temp Pulse Resp BP Sys/[place]ant[place] Pulse Ox Last 24 Hr 97.6 F-98.9 F 65-119 10-25 63-173/46-100 20-100 General appearance: normal weight - Head Head exam: Present: normal inspection - Eye Eye exam: Present: EOMI Pupils: Present: CHRIS - Respiratory Respiratory exam: Present: rhonchi. Absent: rales - Cardiovascular Cardiovascular exam: Present: irregular rhythm (Murmur of MR is auscultated his rate is controlled), other (He has a bruit but not much of a thrill over his left upper extremity access site for dialysis) - GI/Abdominal GI/Abdominal exam: Present: normal bowel sounds - Extremities Exam Extremities exam: Absent: edema - Neurological Exam Neurological exam: Present: alert. Absent: oriented X3 - Skin Skin exam: Present: normal color, warm Result/EKG - Labs CBC & BMP: 02/16/17 04:55 02/16/17 04:55 Labs: Laboratory Results - last 24 hr 02/15/17 02/15/17 02/15/17 05:57 09:07 11:03 WBC RBC Hgb Hct MCV MCH MCHC RDW Plt Count MPV Neut % (Auto) Lymph % (Auto) [place] % (Auto) Eos % (Auto) Baso % (Auto) Neut # (Auto) Lymph # (Auto) [place] # (Auto) Eos # (Auto) Baso # (Auto) Total Counted Immature Gran % Nucleated RBC % Immature Gran # Segmented Neutrophils Lymphocytes Monocytes Eosinophils Nucleated RBCs # Platelet Estimate Immature Plt Fraction Hypochromasia Morphology Comment Sodium 137 Potassium 4.1 Chloride 102 Carbon Dioxide 23 Anion Gap 16.1 H BUN 38 H Creatinine 8.00 H GFR Calculation 8 BUN/Creatinine Ratio 4.00 L Glucose 108 H POC Glucose 74 106 Calculated Osmolality 282.8 Calcium 9.3 Magnesium 02/15/17 02/15/17 02/16/17 15:56 20:10 04:55 WBC 7.8 RBC 4.05 Hgb 11.8 L Hct 35.4 L MCV 87.4 MCH 29 MCHC 33.3 RDW 17.5 H Plt Count 96 L MPV 10.1 Neut % (Auto) 67.3 Lymph % (Auto) 13.6 L [place] % (Auto) 15.6 H Eos % (Auto) 2.6 Baso % (Auto) 0.6 Neut # (Auto) 5.2 Lymph # (Auto) 1.1 L [place] # (Auto) 1.2 H Eos # (Auto) 0.2 Baso # (Auto) 0.1 Total Counted 100 Immature Gran % 0.3 Nucleated RBC % 0.3 Immature Gran # 0.02 Segmented Neutrophils 71 Lymphocytes 13 L Monocytes 14 Eosinophils 2 Nucleated RBCs # 0.02 Platelet Estimate Decreased Immature Plt Fraction 0.0 Hypochromasia 1+ Morphology Comment Sodium Potassium Chloride Carbon Dioxide Anion Gap BUN Creatinine GFR Calculation BUN/Creatinine Ratio Glucose POC Glucose 125 H 87 Calculated Osmolality Calcium Magnesium 02/16/17 04:55 WBC RBC Hgb Hct MCV MCH MCHC RDW Plt Count MPV Neut % (Auto) Lymph % (Auto) [place] % (Auto) Eos % (Auto) Baso % (Auto) Neut # (Auto) Lymph # (Auto) [place] # (Auto) Eos # (Auto) Baso # (Auto) Total Counted Immature Gran % Nucleated RBC % Immature Gran # Segmented Neutrophils Lymphocytes Monocytes Eosinophils Nucleated RBCs # Platelet Estimate Immature Plt Fraction Hypochromasia Morphology Comment Sodium 137 Potassium 3.8 Chloride 100 Carbon Dioxide 26 Anion Gap 14.8 BUN 26 H D Creatinine 6.30 H GFR Calculation 10 BUN/Creatinine Ratio 4.00 L Glucose 77 POC Glucose Calculated Osmolality 276.8 Calcium 9.1 Magnesium 2.6 H
[2017-02-16] MEDS: INSULIN LISPRO 100 UNIT/ML SUBCUT SCH ×4 (08:53→21:33)
[2017-02-16] MEDS ORDERED: FAMOTIDINE 20 MG TABLET PO SCH (09:00)
--- NOTE | 2017-02-16 10:13 | Hospitalist Progress Note ---
Assessment and Plan (1) ESRD (end stage renal disease) on dialysis Status: Chronic Assessment and plan: Pulmonary edema has improved. The patient has relative hypotension due to reduced volume. The patient will continue ICU monitoring of vital signs. We will ask speech therapy to assess the patient's swallowing. It seems to be made worse by his drowsiness which is on account of extra sedatives given during the night. Current Visit: No (2) Atrial fibrillation with RVR Status: Acute Current Visit: Yes Hospitalist: Subjective Interval history: Mr. garg remains delirious. The patient is resting quietly in his room today and is mostly somnolent. The patient does arouse to light touch. The patient does not express any specific complaint. The patient became agitated last night and required Ativan and morphine and Haldol injections in order to be cooperative with care. He seems to have some ing issue. The patient did have dialysis yesterday and received some additional filtration of volume. The patient had some mild hypotension this morning and required bolus of 500 cc saline. Exam - Constitutional Vitals: Period Temp Pulse Resp BP Sys/[place] Pulse Ox Last 24 Hr 97.6 F-98.9 F 65-119 10-25 63-173/48-100 20-100 Exam: Constitutional System: Moderate distress. No tremulousness. The patient is having difficulty cooperating with facemask due to shortness of breath Head: Normocephalic, atraumatic. Ears, Nose and Throat System: No evidence of Otitis or Mastoiditis. No epistaxis or discharge Eyes System: Pupils equal, round, and reactive. Extraocular muscles intact. Neck: Supple, without adenopathy, 2+ jugular venous distention. No thyromegaly , neck mass, or prior surgery apparent. Respiratory System: Chest moderate pulmonary edema to auscultation. Cardiovascular System: Heart with regular rate and rhythm. Systolic murmur GI System: Abdomen soft, nontender. Normo active bowel sounds present. Musculoskeletal System: limbs with 1+ pedal edema. Full distal pulses. Neurological System: No discernable sensory deficit. No aphasia Psychiatric System: Conversation is disoriented Results - Labs CBC & BMP: 02/16/17 04:55 02/16/17 04:55 Lab Results: I have reviewed the past 24 hour labs
[2017-02-16] MEDS: MULTIVITAMIN (BEROCCA) TABLET PO SCH (11:38)
[2017-02-16] MEDS: DILTIAZEM INJ 100 MG in SODIUM CHLORIDE 0.9% 100 ML IV SCH (11:38)
[2017-02-16] MEDS: ASPIRIN CHEW 81 MG TABLET PO SCH (11:38)
[2017-02-16] MEDS: CALCIUM ACETATE 667 MG CAPSULE PO SCH ×3 (11:38→17:56)
[2017-02-16] MEDS: METOCLOPRAMIDE 5 MG TABLET PO SCH ×3 (11:38→17:56)
[2017-02-16] MEDS: ROSUVASTATIN 20 MG TABLET PO SCH (11:39)
[2017-02-16] MEDS: ALLOPURINOL 300 MG TABLET PO SCH (11:39)
[2017-02-16] MEDS: METOPROLOL SUCCINATE XL 50 MG TABLET PO SCH ×2 (11:39→21:57)
[2017-02-16] MEDS: ENOXAPARIN 30 MG/0.3 ML SYRINGE SUBCUT SCH (11:51)
[2017-02-16] MEDS: LEVOTHYROXINE 100 MCG VIAL IV SCH (11:54)
[2017-02-16] MEDS: LEVOTHYROXINE 75 MCG TABLET PO SCH (12:05)
[2017-02-16] MEDS: PANTOPRAZOLE 40 MG TABLET PO SCH (12:06)
--- NOTE | 2017-02-16 15:15 | Nephrology Progress Note ---
Nephrology - PN: Subj Interval history: Patient is sedate this morning he does open his eyes and mumble some words in a poorly coherent fashion. Physical exam general patient is chronically ill-appearing, heart is irregular irregular he has no pitting edema, lungs are clear to auscultation anteriorly, abdomen is soft with decreased bowel sounds Assessment/plan 1. Atrial fibrillation with rapid ventricular response-his rate seems to be controlled at this time 2. End-stage renal disease-patient was dialyzed yesterday he had 800 cc of fluid removed net parmar, his UF was limited by hypotension. 3. Pulmonary hypertension-patient has a PA pressure of 88 mmHg 4. Valvular heart disease-patient has moderate to severe mitral and tricuspid regurgitation 5. Agitation-patient is requiring fairly frequent doses of sedation, I think some of these medicines are lingering related to his kidney failure and also has a prolonged effect due to his decreased mental reserve. Exam (PN)-Nephrology - Vital Signs Vital signs: Period Temp Pulse Resp BP Sys/[place] Pulse Ox Last 24 Hr 98.1 F-98.9 F 65-119 04-21 63-173/41-100 20-100 - Lab 02/16/17 04:55 02/16/17 04:55 Most recent lab results ABG pH 7.300 (7.35-7.45) L 02/15/17 03:55 ABG pCO2 43.2 MM HG (35-48) 02/15/17 03:55 ABG pO2 81.9 MM HG (80-95) 02/15/17 03:55 ABG HCO3 20.1 MMOL/L (20-26) 02/15/17 03:55 ABG O2 Saturation 95.2 % (95-100) 02/15/17 03:55 Calcium 9.1 MG/DL (8.5-10.1) 02/16/17 04:55 Magnesium 2.6 MG/DL (1.8-2.4) H 02/16/17 04:55 Assessment and Plan (1) Abdominal pain Status: Acute Assessment and plan: Patient's abdominal pain seems to be improved, the patient states he ate some white dirt yesterday and thinks that this may have been the cause to his abdominal pain, CT scan of the abdomen did not seem to reveal any acute pathology to explain his pain. Current Visit: Yes (2) Atrial fibrillation with RVR Status: Acute Assessment and plan: Continue Cardizem for rate control Current Visit: Yes (3) Diabetes mellitus Status: Chronic Assessment and plan: Monitor with a sliding scale Current Visit: No Qualifiers: Diabetes mellitus type: type 2 Diabetes mellitus complication status: with hyperosmolarity (4) End stage renal disease on dialysis Status: Chronic Assessment and plan: We will plan on hemodialysis today. Current Visit: No
[2017-02-16] MEDS: DEXTROSE 50% 25 GM/50 ML SYRINGE IV PRN (17:35)
[2017-02-17] MEDS: MORPHINE 2 MG/1 ML SYRINGE IV PRN (00:52)
[2017-02-17] MEDS: LORazepam 2 MG/1 ML VIAL IV PRN (02:28)
[2017-02-17 06:01] LABS: Basophils % 0.5 % (0.0-0.8); Eosinophils # 0.2 10*3/uL (0.0-0.87); Eosinophils % 2.4 % (0.00-10.9); Hematocrit 36.7 VOL% (42.0-52.0); Hemoglobin 12.5 GM/DL (14.0-18.0); Immature Granulocytes % 0.5 %; Immature Granulocytes Absolute 0.03 #; Lymphocytes # 0.9 10*3/uL (1.4-4.0); Lymphocytes % 14.5 % (21.2-54.2); Mean Corpuscular HGB Conc 34.1 GM/DL (32-36); Mean Corpuscular Hemoglobin 30 PG (27-34); Mean Corpuscular Volume 87.6 FL (87-102); Mean Platelet Volume 11.7 FL (9.6-12.0); Monocytes # 0.8 10*3/uL (0.11-0.8); Monocytes % 12.1 % (1.7-12.7); NRBC # 0.02 10*3/uL; Neutrophils # 4.3 10*3/uL (1.4-7.4); Platelet Count 103 T/CUMM (130-400); Red Blood Count 4.19 MC/CUMM (3.8-5.5); Red Cell Distribution Width 17.9 % (9.3-17.3); White Blood Count 6.2 T/CUMM (4-12)
[2017-02-17 06:35] LABS: Magnesium 2.8 MG/DL (1.8-2.4); Osmolality,Calculated 278.8 MOS/KG (273-304); Potassium 3.9 MMOL/L (3.5-5.1)
[2017-02-17] MEDS: DILTIAZEM INJ 100 MG in SODIUM CHLORIDE 0.9% 100 ML IV SCH (06:43)
[2017-02-17] MEDS: DEXTROSE 50% 25 GM/50 ML SYRINGE IV PRN ×2 (06:43→21:17)
[2017-02-17] MEDS: LEVOTHYROXINE 100 MCG VIAL IV SCH (06:43)
[2017-02-17] MEDS: METOCLOPRAMIDE 5 MG TABLET PO SCH ×3 (07:44→16:50)
[2017-02-17] MEDS: INSULIN LISPRO 100 UNIT/ML SUBCUT SCH ×4 (07:59→21:36)
[2017-02-17] MEDS: CALCIUM ACETATE 667 MG CAPSULE PO SCH ×3 (07:59→17:00)
[2017-02-17] MEDS: ALLOPURINOL 300 MG TABLET PO SCH (09:23)
[2017-02-17] MEDS: MULTIVITAMIN (BEROCCA) TABLET PO SCH (09:23)
--- NOTE | 2017-02-17 09:29 | Cardiology Progress Note ---
<Lisa Stevens E - Last Filed: 02/17/17 09:10> Assessment and Plan - Time spent with patient Time spent with patient: Greater than 30 minutes (1) Atrial fibrillation with rapid ventricular response Status: Chronic Assessment and plan: SEE PLAN OF CARE LISTED BELOW Current Visit: No (2) Coronary artery disease Status: Chronic Assessment and plan: SEE PLAN OF CARE LISTED BELOW Current Visit: No Qualifiers: Coronary Disease-Associated Artery/Lesion type: bypass graft [place] vs. transplanted heart: [place] heart Associated angina: without angina Qualified Code(s): I25.810 - Atherosclerosis of coronary artery bypass graft(s) without angina pectoris (3) Status post coronary artery bypass grafting Status: Chronic Assessment and plan: SEE PLAN OF CARE LISTED BELOW Current Visit: No (4) ESRD (end stage renal disease) on dialysis Status: Chronic Assessment and plan: SEE PLAN OF CARE LISTED BELOW Current Visit: No (5) IDDM (insulin dependent diabetes mellitus) Status: Chronic Assessment and plan: SEE PLAN OF CARE LISTED BELOW Current Visit: No (6) ESRD (end stage renal disease) on dialysis Status: Chronic Assessment and plan: SEE PLAN OF CARE LISTED BELOW Current Visit: Yes (7) Mitral regurgitation Status: Chronic Assessment and plan: SEE PLAN OF CARE LISTED BELOW Current Visit: Yes (8) Anemia Status: Chronic Assessment and plan: SEE PLAN OF CARE LISTED BELOW Current Visit: No Qualifiers: Anemia type: due to other cause Other causes of anemia: other specified cause (9) Hypertension Status: Chronic Assessment and plan: SEE PLAN OF CARE LISTED BELOW Current Visit: No Cardiology - PN: Subj Interval history: PLASTER LATHER: DR. CHAVEZ SUMMARY: 71BM with a history of known CAD (S/P CABG twice, most recently December 2012), pacemaker September 2016 for symptomatic bradycardia, hypertension, diabetes , ESRD on hemodialysis, atrial fib, PAD (multiple IR interventions). Admitted February 12, 2017 in transfer from [facility] for further evaluation of sharp abdominal pain. On arrival, patient was noted to be hypotensive (blood pressure 77/66) and A. fib with RVR (heart rate 124 bpm). IV Diltiazem was initiated and good heart rate control obtained, pressors required initially. Echocardiogram: EF 55%, moderate to severe MR, moderate TR, severe pulmonary hypertension. Patient is not a candidate for anticoagulation due to history of severe anemia September 2016 with GI bleed from AV malformations. Previous abdominal workup was negative (CT abdomen reveals no acute pathology), abdominal pain resolved. FEBRUARY 17, 2017: This morning, patient is maintained on IV Diltiazem at 5 mg/h. He failed his swallowing eval and is not taking anything by mouth at this time , therefore metoprolol, aspirin and Crestor have been held. Should the patient require NG/PEG, will reinitiate meds per this route. Heart rates averaging 89- 109 bpm. He is responding only to painful stimuli at this time. Undergoing dialysis at present. Will further discuss with Dr. Abarca and await additional recommendations ASSESSMENT/PLAN: 1. HYPOTENSION - resolved 2. ATRIAL FIB WITH RVR -currently on IV Diltiazem. Will incorporate medications orally versus NG/PEG when able to tolerate 3. ABDOMINAL PAIN - resolved. Workup benign 4. ESRD - undergoing dialysis this morning 5. HYPERTENSION - adequately controlled on IV diltiazem 5 mg/h. 6. DEMENTIA - will add blood cultures and, if he makes urine, urinalysis. 7. MITRAL REGURGITATION, SEVERE - continue current plan of care 8. PULMONARY HYPERTENSION - no change in plan of care today. 9. DIABETES -continue covering sliding scale 10. CAD S/P CABG TWICE - unable to take ASA at this time. Consider rectal administration. 11. ANEMIA - stable. Not a candidate for anti-coagulation due to significant GI Bleed September 2016 12. PVD - continue current plan of care. Exam (Progress Note) - Constitutional Vitals: Period Temp Pulse Resp BP Sys/Santana Pulse Ox Last 24 Hr 96.8 F-98.6 F 68-126 10-24 85-144/37-90 83-100 Exam: General: [Appears chronically ill. ] [Appears comfortable.] HEENT: [Bilateral arcus, normocephalic, atraumatic. Mucous membranes moist. No jaundice noted. Conjunctiva moist and clear, sclerae anicteric] wearing oxygen mask Neck: 4-6 cm JVD to jaw. No thyromegaly or lymphadenopathy noted. No carotid bruit appreciated Cardiac: [Irregularly irregular rhythm, IV/ HSM heard throughout precordium] Lungs: [Rhonchi throughout, rales posteriorly in the bases. No use of accessory muscles to assist the respiratory pattern.] Oxygen in use via mask Abdomen: Soft, bowel sounds normoactive. Nontender and nondistended. No abdominal bruit or thrill noted. No masses noted. Musculoskeletal: No fluid collection. Decreased range of motion is noted. Extremities: No clubbing, cyanosis noted. [ Upper extremity pulses 2+. Lower extremity pulses difficult to palpate. Amputation noted left foot. Capillary refill less than 3 seconds. Skin: No unusual lesions or rashes. No skin breakdown appreciated. Neuro: Opens eyes to tactile stimuli, aggressive stimuli. No essential tremor is appreciated. Result/EKG - Labs CBC & BMP: 02/17/17 04:59 02/17/17 04:59 Lab Results: I have reviewed the past 24 hour labs Labs: Laboratory Results - last 24 hr 02/16/17 02/16/17 02/16/17 12:26 15:02 17:29 WBC RBC Hgb Hct MCV MCH MCHC RDW Plt Count MPV Neut % (Auto) Lymph % (Auto) [place] % (Auto) Eos % (Auto) Baso % (Auto) Neut # (Auto) Lymph # (Auto) [place] # (Auto) Eos # (Auto) Baso # (Auto) Immature Gran % Nucleated RBC % Immature Gran # Nucleated RBCs # Immature Plt Fraction Sodium Potassium Chloride Carbon Dioxide Anion Gap BUN Creatinine GFR Calculation BUN/Creatinine Ratio Glucose POC Glucose 78 75 38 L* Calculated Osmolality Calcium Magnesium 02/16/17 02/16/17 02/17/17 18:03 20:03 04:59 WBC 6.2 RBC 4.19 Hgb 12.5 L Hct 36.7 L MCV 87.6 MCH 30 MCHC 34.1 RDW 17.9 H Plt Count 103 L MPV 11.7 Neut % (Auto) 70.0 Lymph % (Auto) 14.5 L [place] % (Auto) 12.1 Eos % (Auto) 2.4 Baso % (Auto) 0.5 Neut # (Auto) 4.3 Lymph # (Auto) 0.9 L [place] # (Auto) 0.8 Eos # (Auto) 0.2 Baso # (Auto) 0.0 Immature Gran % 0.5 Nucleated RBC % 0.3 Immature Gran # 0.03 Nucleated RBCs # 0.02 Immature Plt Fraction 0.0 Sodium Potassium Chloride Carbon Dioxide Anion Gap BUN Creatinine GFR Calculation BUN/Creatinine Ratio Glucose POC Glucose 92 115 H Calculated Osmolality Calcium Magnesium 02/17/17 02/17/17 02/17/17 04:59 05:46 07:58 WBC RBC Hgb Hct MCV MCH MCHC RDW Plt Count MPV Neut % (Auto) Lymph % (Auto) [place] % (Auto) Eos % (Auto) Baso % (Auto) Neut # (Auto) Lymph # (Auto) [place] # (Auto) Eos # (Auto) Baso # (Auto) Immature Gran % Nucleated RBC % Immature Gran # Nucleated RBCs # Immature Plt Fraction Sodium 137 Potassium 3.9 Chloride 101 Carbon Dioxide 24 Anion Gap 15.9 H BUN 34 H Creatinine 7.60 H GFR Calculation 8 BUN/Creatinine Ratio 4.00 L Glucose 69 L POC Glucose 78 148 H Calculated Osmolality 278.8 Calcium 9.0 Magnesium 2.8 H - EKG EKG results: interpreted by me EKG shows: atrial fibrillation <Rebecca Abarca - Last Filed: 02/17/17 12:02> Assessment and Plan (1) Atrial fibrillation with RVR Status: Acute Current Visit: Yes (2) ESRD (end stage renal disease) on dialysis Status: Chronic Current Visit: Yes (3) Hypothyroidism Status: Chronic Current Visit: Yes (4) Coronary artery disease Status: Chronic Current Visit: No Qualifiers: Coronary Disease-Associated Artery/Lesion type: bypass graft [place] vs. transplanted heart: [place] heart Associated angina: without angina Qualified Code(s): I25.810 - Atherosclerosis of coronary artery bypass graft(s) without angina pectoris (5) Mitral regurgitation Status: Chronic Current Visit: Yes Cardiology - PN: Subj Interval history: Saw and discussed with Ms. Walshey. The patient continues to be in atrial fibrillation he is on dialysis today. He is not as conversant and alert today as he was yesterday and actually has minimal interaction. As documented yesterday is not a candidate for anticoagulation because of previous life- threatening bleeding. Continue rate control medicines. Exam (Progress Note) - Constitutional Vitals: Period Temp Pulse Resp BP Sys/Santana Pulse Ox Last 24 Hr 96.7 F-97.9 F 68-126 10-25 85-144/37-90 83-100 Exam: Irregular rhythm S1-S2 scattered murmur of MR. His lungs are coarse breath sounds bilaterally but no cooperation for good inspiratory effort. He is getting dialyzed at this time his abdominal exam is soft Result/EKG - Labs CBC & BMP: 02/17/17 04:59 02/17/17 04:59 Labs: Laboratory Results - last 24 hr 02/16/17 02/16/17 02/16/17 12:26 15:02 17:29 WBC RBC Hgb Hct MCV MCH MCHC RDW Plt Count MPV Neut % (Auto) Lymph % (Auto) [place] % (Auto) Eos % (Auto) Baso % (Auto) Neut # (Auto) Lymph # (Auto) [place] # (Auto) Eos # (Auto) Baso # (Auto) Immature Gran % Nucleated RBC % Immature Gran # Nucleated RBCs # Immature Plt Fraction Sodium Potassium Chloride Carbon Dioxide Anion Gap BUN Creatinine GFR Calculation BUN/Creatinine Ratio Glucose POC Glucose 78 75 38 L* Calculated Osmolality Calcium Magnesium 02/16/17 02/16/17 02/17/17 18:03 20:03 04:59 WBC 6.2 RBC 4.19 Hgb 12.5 L Hct 36.7 L MCV 87.6 MCH 30 MCHC 34.1 RDW 17.9 H Plt Count 103 L MPV 11.7 Neut % (Auto) 70.0 Lymph % (Auto) 14.5 L [place] % (Auto) 12.1 Eos % (Auto) 2.4 Baso % (Auto) 0.5 Neut # (Auto) 4.3 Lymph # (Auto) 0.9 L [place] # (Auto) 0.8 Eos # (Auto) 0.2 Baso # (Auto) 0.0 Immature Gran % 0.5 Nucleated RBC % 0.3 Immature Gran # 0.03 Nucleated RBCs # 0.02 Immature Plt Fraction 0.0 Sodium Potassium Chloride Carbon Dioxide Anion Gap BUN Creatinine GFR Calculation BUN/Creatinine Ratio Glucose POC Glucose 92 115 H Calculated Osmolality Calcium Magnesium 02/17/17 02/17/17 02/17/17 04:59 05:46 07:58 WBC RBC Hgb Hct MCV MCH MCHC RDW Plt Count MPV Neut % (Auto) Lymph % (Auto) [place] % (Auto) Eos % (Auto) Baso % (Auto) Neut # (Auto) Lymph # (Auto) [place] # (Auto) Eos # (Auto) Baso # (Auto) Immature Gran % Nucleated RBC % Immature Gran # Nucleated RBCs # Immature Plt Fraction Sodium 137 Potassium 3.9 Chloride 101 Carbon Dioxide 24 Anion Gap 15.9 H BUN 34 H Creatinine 7.60 H GFR Calculation 8 BUN/Creatinine Ratio 4.00 L Glucose 69 L POC Glucose 78 148 H Calculated Osmolality 278.8 Calcium 9.0 Magnesium 2.8 H
[2017-02-17] MEDS: ROSUVASTATIN 20 MG TABLET PO SCH (09:42)
[2017-02-17] MEDS: ASPIRIN CHEW 81 MG TABLET PO SCH (09:42)
[2017-02-17] MEDS: METOPROLOL SUCCINATE XL 50 MG TABLET PO SCH (09:43)
[2017-02-17] MEDS: FAMOTIDINE 20 MG/2 ML VIAL IV SCH ×2 (10:31→21:36)
--- NOTE | 2017-02-17 11:24 | Hospitalist Progress Note ---
Assessment and Plan (1) ESRD (end stage renal disease) on dialysis Status: Chronic Assessment and plan: Pulmonary edema has improved. The patient has relative hypotension due to reduced volume. The patient will continue ICU monitoring of vital signs. We will check the ammonia level to see if the patient has hepatic encephalopathy symptoms. Current Visit: No (2) Atrial fibrillation with RVR Status: Acute Current Visit: Yes Hospitalist: Subjective Interval history: The patient is unable to swallow medication. The patient required sedation during the night on account of delirium. The patient has had stroke-like syndrome which has limited his ability to be interactive with caregivers. The patient had dialysis again today. We will check ammonia level to see if he has hepatic encephalopathy. Exam - Constitutional Vitals: Period Temp Pulse Resp BP Sys/Santana Pulse Ox Last 24 Hr 96.7 F-98.6 F 68-126 10-25 85-144/37-90 83-100 Exam: Constitutional System: Minimal distress. No tremulousness. The patient is less short of breath today after dialysis was accomplished yesterday Head: Normocephalic, atraumatic. Ears, Nose and Throat System: No evidence of Otitis or Mastoiditis. No epistaxis or discharge Eyes System: Pupils equal, round, and reactive. Extraocular muscles intact. Neck: Supple, without adenopathy, trace jugular venous distention. No thyromegaly, neck mass, or prior surgery apparent. Respiratory System: Chest less pulmonary edema to auscultation. Cardiovascular System: Heart with regular rate and rhythm. Systolic murmur GI System: Abdomen soft, nontender. Normo active bowel sounds present. Musculoskeletal System: limbs with 1+ pedal edema. Full distal pulses. Neurological System: No discernable sensory deficit. No aphasia Psychiatric System: Conversation is disoriented Results - Labs CBC & BMP: 02/17/17 04:59 02/17/17 04:59 Lab Results: I have reviewed the past 24 hour labs
[2017-02-17] MEDS: ENOXAPARIN 30 MG/0.3 ML SYRINGE SUBCUT SCH (11:50)
--- NOTE | 2017-02-17 13:14 | Nephrology Progress Note ---
Nephrology - PN: Subj Interval history: Patient remains poorly responsive, he does awaken briefly to say hello but then becomes nonresponsive in mid sentence and when not stimulated. Physical exam general patient is chronically ill-appearing, heart is regular rate and rhythm he has no pitting edema, lungs reveal crackles at the left base anteriorly, abdomen is soft with positive bowel sounds Assessment/plan 1. Abdominal pain seems to have resolved 2. Cardiac dysrhythmia-patient's heart rate is controlled 3. End-stage renal disease-patient was dialyzed today, will plan on dialyzing him tomorrow as discussed with Dr. Thakkar 4. Confusion and agitation-I think this is secondary to some underlying decreased mental reserve related to his age and multiple comorbidities that is being further brought out due to his deteriorating cardiac status. Will try dialyzing him daily see if this returns him to a better state of health and improvement in his confusional states. Exam (PN)-Nephrology - Vital Signs Vital signs: Period Temp Pulse Resp BP Sys/Santana Pulse Ox Last 24 Hr 96.7 F-97.9 F 79-126 10-25 85-144/37-90 83-100 - Lab 02/17/17 04:59 02/17/17 04:59 Most recent lab results ABG pH 7.300 (7.35-7.45) L 02/15/17 03:55 ABG pCO2 43.2 MM HG (35-48) 02/15/17 03:55 ABG pO2 81.9 MM HG (80-95) 02/15/17 03:55 ABG HCO3 20.1 MMOL/L (20-26) 02/15/17 03:55 ABG O2 Saturation 95.2 % (95-100) 02/15/17 03:55 Calcium 9.0 MG/DL (8.5-10.1) 02/17/17 04:59 Magnesium 2.8 MG/DL (1.8-2.4) H 02/17/17 04:59 Assessment and Plan (1) Abdominal pain Status: Acute Assessment and plan: Patient's abdominal pain seems to be improved, the patient states he ate some white dirt yesterday and thinks that this may have been the cause to his abdominal pain, CT scan of the abdomen did not seem to reveal any acute pathology to explain his pain. Current Visit: Yes (2) Atrial fibrillation with RVR Status: Acute Assessment and plan: Continue Cardizem for rate control Current Visit: Yes (3) Diabetes mellitus Status: Chronic Assessment and plan: Monitor with a sliding scale Current Visit: No Qualifiers: Diabetes mellitus type: type 2 Diabetes mellitus complication status: with hyperosmolarity (4) End stage renal disease on dialysis Status: Chronic Assessment and plan: We will plan on hemodialysis today. Current Visit: No
[2017-02-18] MEDS: DILTIAZEM INJ 100 MG in SODIUM CHLORIDE 0.9% 100 ML IV SCH ×2 (02:49→09:20)
[2017-02-18 06:28] LABS: Basophils % 0.2 % (0.0-0.8); Eosinophils # 0.1 10*3/uL (0.0-0.87); Eosinophils % 0.7 % (0.00-10.9); Hematocrit 38.1 VOL% (42.0-52.0); Hemoglobin 13.1 GM/DL (14.0-18.0); Immature Granulocytes % 0.3 %; Immature Granulocytes Absolute 0.03 #; Lymphocytes # 0.9 10*3/uL (1.4-4.0); Lymphocytes % 9.5 % (21.2-54.2); Mean Corpuscular HGB Conc 34.4 GM/DL (32-36); Mean Corpuscular Hemoglobin 30 PG (27-34); Mean Corpuscular Volume 87.4 FL (87-102); Mean Platelet Volume 10.5 FL (9.6-12.0); Monocytes # 0.9 10*3/uL (0.11-0.8); NRBC # 0.04 10*3/uL; Neutrophils # 7.1 10*3/uL (1.4-7.4); Neutrophils % 79.3 % (38.7-73.9); Platelet Count 124 T/CUMM (130-400); Red Blood Count 4.36 MC/CUMM (3.8-5.5); Red Cell Distribution Width 17.8 % (9.3-17.3)
[2017-02-18] MEDS: LEVOTHYROXINE 100 MCG VIAL IV SCH (06:29)
--- NOTE | 2017-02-18 06:51 | Cardiology Progress Note ---
Assessment and Plan (1) Atrial fibrillation with RVR Status: Acute Assessment and plan: The patient is non-anticoagulation candidate because of history of bleeding. Current Visit: Yes (2) ESRD (end stage renal disease) on dialysis Status: Chronic Current Visit: Yes (3) Hypothyroidism Status: Chronic Current Visit: Yes (4) Coronary artery disease Status: Chronic Current Visit: No Qualifiers: Coronary Disease-Associated Artery/Lesion type: bypass graft [place] vs. transplanted heart: [place] heart Associated angina: without angina Qualified Code(s): I25.810 - Atherosclerosis of coronary artery bypass graft(s) without angina pectoris (5) Mitral regurgitation Status: Chronic Current Visit: Yes Qualifiers: Cardiac valve disease etiology: nonrheumatic Qualified Code(s): I34.0 - Nonrheumatic mitral (valve) insufficiency Cardiology - PN: Subj Interval history: Mr. Nye remains to be confused. He is conversant this morning. He remains in atrial fibrillation his rate is probably not an appropriate for his clinical setting. His heart rates about 100 - 110. He is still not able to take oral medications or oral intake consistently. He is found to have swallow evaluation today. He has not been on any anticoagulation. He has not been anticoagulated presents for ablation because his AVM. He previously was on aspirin which has not been taking due to inability to swallow. The patient is not oriented. Hopefully he can get some enteral nutrition today and enteral route for medications will convert IV to enteral if possible. Exam (Progress Note) - Constitutional Vitals: Period Temp Pulse Resp BP Sys/Santana Pulse Ox Last 24 Hr 96.7 F-99.7 F 79-122 11-25 76-163/45-89 85-99 General appearance: normal weight - Respiratory Respiratory exam: Present: other (Will not be cooperative for exam but it clear parenchyma with casual respirations) - Cardiovascular Cardiovascular exam: Present: irregular rhythm (No gallop) - GI/Abdominal GI/Abdominal exam: Present: normal bowel sounds, distended - Neurological Exam Neurological exam: Present: alert. Absent: oriented X3 - Psychiatric Psychiatric exam: Present: agitated, anxious - Skin Skin exam: Present: normal color, warm, dry Result/EKG - Labs CBC & BMP: 02/18/17 06:21 02/17/17 04:59 Labs: Laboratory Results - last 24 hr 08/02/17/17 02/17/17 07:58 12:18 16:03 WBC RBC Hgb Hct MCV MCH MCHC RDW Plt Count MPV Neut % (Auto) Lymph % (Auto) [place] % (Auto) Eos % (Auto) Baso % (Auto) Neut # (Auto) Lymph # (Auto) [place] # (Auto) Eos # (Auto) Baso # (Auto) Immature Gran % Nucleated RBC % Immature Gran # Nucleated RBCs # Immature Plt Fraction POC Glucose 148 H 101 90 02/17/17 02/17/17 02/18/17 21:14 21:36 00:02 WBC RBC Hgb Hct MCV MCH MCHC RDW Plt Count MPV Neut % (Auto) Lymph % (Auto) [place] % (Auto) Eos % (Auto) Baso % (Auto) Neut # (Auto) Lymph # (Auto) [place] # (Auto) Eos # (Auto) Baso # (Auto) Immature Gran % Nucleated RBC % Immature Gran # Nucleated RBCs # Immature Plt Fraction POC Glucose 38 L* 105 127 H 02/18/17 02/18/17 06:21 06:36 WBC 9.0 D RBC 4.36 Hgb 13.1 L Hct 38.1 L MCV 87.4 MCH 30 MCHC 34.4 RDW 17.8 H Plt Count 124 L D MPV 10.5 Neut % (Auto) 79.3 H Lymph % (Auto) 9.5 L [place] % (Auto) 10.0 Eos % (Auto) 0.7 Baso % (Auto) 0.2 Neut # (Auto) 7.1 Lymph # (Auto) 0.9 L [place] # (Auto) 0.9 H Eos # (Auto) 0.1 Baso # (Auto) 0.0 Immature Gran % 0.3 Nucleated RBC % 0.4 Immature Gran # 0.03 Nucleated RBCs # 0.04 Immature Plt Fraction 0.0 POC Glucose 127 H
[2017-02-18] MEDS: INSULIN LISPRO 100 UNIT/ML SUBCUT SCH ×4 (07:03→20:34)
[2017-02-18 07:29] LABS: Calcium 8.8 MG/DL (8.5-10.1); Magnesium 2.3 MG/DL (1.8-2.4); Osmolality,Calculated 275.8 MOS/KG (273-304)
[2017-02-18] MEDS: CALCIUM ACETATE 667 MG CAPSULE PO SCH ×3 (09:14→17:41)
[2017-02-18] MEDS: METOCLOPRAMIDE 5 MG TABLET PO SCH ×3 (09:14→17:41)
[2017-02-18] MEDS: MULTIVITAMIN (BEROCCA) TABLET PO SCH (09:14)
[2017-02-18] MEDS: ALLOPURINOL 300 MG TABLET PO SCH ×2 (09:15→09:16)
[2017-02-18] MEDS: FAMOTIDINE 20 MG/2 ML VIAL IV SCH ×2 (10:35→22:59)
--- NOTE | 2017-02-18 10:37 | Hospitalist Progress Note ---
Assessment and Plan (1) ESRD (end stage renal disease) on dialysis Status: Chronic Assessment and plan: Pulmonary edema has improved. The patient will continue ICU monitoring of vital signs. I am going to add oral Cardizem today. I have discussed and coordinate care with Dr. Pagan concerning the patient and he recommended that the dialysis until azotemia resolves. L we will check the ammonia level to see if the patient has hepatic encephalopathy symptoms. Current Visit: No (2) Atrial fibrillation with RVR Status: Acute Current Visit: Yes Hospitalist: Subjective Interval history: Mr. Nye is more alert today. The patient was cleared for pured foods by the speech therapist. Atrial fibrillation is in control but requiring IV Cardizem infusion. Exam - Constitutional Vitals: Period Temp Pulse Resp BP Sys/Santana Pulse Ox Last 24 Hr 96.9 F-99.7 F 84-122 11-24 76-163/45-89 89-99 Exam: Constitutional System: Minimal distress. No tremulousness. The patient is less short of breath today after dialysis was accomplished yesterday Head: Normocephalic, atraumatic. Ears, Nose and Throat System: No evidence of Otitis or Mastoiditis. No epistaxis or discharge Eyes System: Pupils equal, round, and reactive. Extraocular muscles intact. Neck: Supple, without adenopathy, trace jugular venous distention. No thyromegaly, neck mass, or prior surgery apparent. Respiratory System: Chest less pulmonary edema to auscultation. Cardiovascular System: Heart with regular rate and rhythm. Systolic murmur GI System: Abdomen soft, nontender. Normo active bowel sounds present. Musculoskeletal System: limbs with 1+ pedal edema. Full distal pulses. Neurological System: No discernable sensory deficit. No aphasia Psychiatric System: Conversation is disoriented Results - Labs CBC & BMP: 02/18/17 06:21 02/18/17 06:21 Lab Results: I have reviewed the past 24 hour labs
[2017-02-18] MEDS: ENOXAPARIN 30 MG/0.3 ML SYRINGE SUBCUT SCH (12:01)
[2017-02-18] MEDS: CARVEDILOL 12.5 MG TABLET PO SCH (12:06)
--- NOTE | 2017-02-18 12:38 | Nephrology Progress Note ---
Nephrology - PN: Subj Interval history: Patient is restrained he is conversant talking and addressing me appropriately by Dr. He is complaining about wanting to move and get comfortable he would not answer questions very well for me. Physical exam General-the patient's chronically ill-appearing, heart is irregular irregular he has no pitting edema, lungs are coarse with some crackles , abdomen is soft with positive bowel sounds Assessment/plan 1. End-stage renal disease-as discussed with Dr. Thakkar will try dialyzing the patient for few days in a row to see if this helps his mentation improved 2. Altered mental status-patient is more alert and interactive today think some of the sedation that he was getting is wearing off. I think being out of his home environment has him a little bit confused and out of kilter. I think avoiding mood altering medications and sedatives would be best for him from here on out. 3. Cardiac dysrhythmia-patient's heart rate seems to fluctuate between 80 to 120, I agree with plan of converting him to p.o. diltiazem and getting him off of IV diltiazem and out of the ICU as soon as possible. 4. Diabetes mellitus continue his present hypoglycemic regimen Exam (PN)-Nephrology - Vital Signs Vital signs: Period Temp Pulse Resp BP Sys/Santana Pulse Ox Last 24 Hr 96.9 F-99.7 F 84-122 12-21 76-163/45-89 89-99 - Lab 02/18/17 06:21 02/18/17 06:21 Most recent lab results ABG pH 7.300 (7.35-7.45) L 02/15/17 03:55 ABG pCO2 43.2 MM HG (35-48) 02/15/17 03:55 ABG pO2 81.9 MM HG (80-95) 02/15/17 03:55 ABG HCO3 20.1 MMOL/L (20-26) 02/15/17 03:55 ABG O2 Saturation 95.2 % (95-100) 02/15/17 03:55 Calcium 8.8 MG/DL (8.5-10.1) 02/18/17 06:21 Magnesium 2.3 MG/DL (1.8-2.4) 02/18/17 06:21 Assessment and Plan (1) Abdominal pain Status: Acute Assessment and plan: Patient's abdominal pain seems to be improved, the patient states he ate some white dirt yesterday and thinks that this may have been the cause to his abdominal pain, CT scan of the abdomen did not seem to reveal any acute pathology to explain his pain. Current Visit: Yes (2) Atrial fibrillation with RVR Status: Acute Assessment and plan: Continue Cardizem for rate control Current Visit: Yes (3) Diabetes mellitus Status: Chronic Assessment and plan: Monitor with a sliding scale Current Visit: No Qualifiers: Diabetes mellitus type: type 2 Diabetes mellitus complication status: with hyperosmolarity (4) End stage renal disease on dialysis Status: Chronic Assessment and plan: We will plan on hemodialysis today. Current Visit: No
[2017-02-18] MEDS ORDERED: DILTIAZEM 60 MG TABLET PO SCH (13:00)
[2017-02-18] MEDS: DILTIAZEM 30 MG TABLET PO SCH ×3 (13:19→20:24)
--- NOTE | 2017-02-18 17:29 | Physician Query Form ---
CLICK EDIT DOCUMENT TO SELECT QUERY ANSWER --> OK --> SIGN PROVIDERS: Make your selection(s) from the choices in EACH section by typing an "x" and enter comments in the comment section. Please use your independent medical judgment in providing your response. This request does not imply that any particular answer is desired or expected. CLINICAL INDICATORS: (Providers should not edit this section) Based on documentation of "Hypoxia" "ESRD" "Delirious" "became agitated last night and required Ativan and morphine and Haldol injections in order to be cooperative with care" "He is responding only to painful stimuli at this time." "check ammonia level to see if he has hepatic encephalopathy." "Confusion and agitation" Treated with Dialysis, IV antibiotics, Ativan and Haldol. ACUITY: (X ) Acute ( ) Acute on Chronic ( ) Chronic ( ) Clinically unable to determine NATURE: ( X) Delirium due to general medical condition ( ) Dementia ( ) Encephalopathy ( ) Unconscious ( ) Transient level of awareness ( ) Comatose ( ) Locked-in State ( ) Persistent Vegetative State ( ) Other, please specify: ( ) Clinically unable to determine Please indicate the underlying cause of the altered mental status (CHECK ALL THAT APPLY): (X ) Baseline dementia ( ) Alzheimer's disease ( ) Parkinson's disease ( ) Lewy body dementia ( ) Acute stroke ( ) Late effect of stroke ( ) Reactive (from emotional stress, psychological trauma) ( ) Due to narcotics/other drugs ( ) Post procedural delirium ( ) Transient ischemic attack ( ) Generalized cerebral edema ( ) Normal pressure hydrocephalus ( ) Psychiatric illness ( ) Other, please specify: ( ) Clinically unable to determine Please indicate if there is an infection, sepsis, dehydration or specific organ failure that is causing the dementia. Be specific with clarifying the relationship between that process and the mental status change. COMMENTS: PLEASE ALSO DOCUMENT RESPONSE IN PROGRESS NOTES AND/OR DISCHARGE SUMMARY Use of terms such as suspected, likely, or probable (associated with a specific diagnosis that is being evaluated, monitored, or treated as if it exists) are acceptable and can be restated in the discharge summary if not ruled out. MTDD
[2017-02-18] MEDS ORDERED: CARVEDILOL 6.25 MG TABLET PO SCH (21:00)
[2017-02-19 04:59] LABS: Basophils % 0.3 % (0.0-0.8); Eosinophils # 0.1 10*3/uL (0.0-0.87); Eosinophils % 0.9 % (0.00-10.9); Hematocrit 34.4 VOL% (42.0-52.0); Hemoglobin 11.8 GM/DL (14.0-18.0); Immature Granulocytes % 0.6 %; Immature Granulocytes Absolute 0.04 #; Lymphocytes # 0.6 10*3/uL (1.4-4.0); Mean Corpuscular HGB Conc 34.3 GM/DL (32-36); Mean Corpuscular Hemoglobin 30 PG (27-34); Mean Corpuscular Volume 86.6 FL (87-102); Mean Platelet Volume 11.2 FL (9.6-12.0); Monocytes # 0.8 10*3/uL (0.11-0.8); Monocytes % 12.2 % (1.7-12.7); NRBC # 0.03 10*3/uL; Neutrophils # 4.9 10*3/uL (1.4-7.4); Platelet Count 114 T/CUMM (130-400); Red Blood Count 3.97 MC/CUMM (3.8-5.5); Red Cell Distribution Width 17.4 % (9.3-17.3); White Blood Count 6.3 T/CUMM (4-12)
[2017-02-19 05:31] LABS: Calcium 8.9 MG/DL (8.5-10.1); Magnesium 2.3 MG/DL (1.8-2.4); Osmolality,Calculated 276.7 MOS/KG (273-304); Potassium 3.9 MMOL/L (3.5-5.1)
[2017-02-19] MEDS: LEVOTHYROXINE 100 MCG VIAL IV SCH (06:31)
[2017-02-19] MEDS: DILTIAZEM INJ 100 MG in SODIUM CHLORIDE 0.9% 100 ML IV SCH (06:31)
[2017-02-19] MEDS: INSULIN LISPRO 100 UNIT/ML SUBCUT SCH ×3 (07:51→21:17)
[2017-02-19] MEDS: DILTIAZEM 30 MG TABLET PO SCH (08:11)
[2017-02-19] MEDS: CALCIUM ACETATE 667 MG CAPSULE PO SCH ×2 (08:11→11:27)
[2017-02-19] MEDS: METOCLOPRAMIDE 5 MG TABLET PO SCH ×2 (08:11→11:27)
[2017-02-19] MEDS: MULTIVITAMIN (BEROCCA) TABLET PO SCH (08:11)
[2017-02-19] MEDS: ALLOPURINOL 300 MG TABLET PO SCH (08:12)
[2017-02-19] MEDS: CARVEDILOL 12.5 MG TABLET PO SCH ×3 (08:12→20:35)
[2017-02-19] MEDS: prednisoLONE ACETATE 1% OPH SUSP 5 ML BOTTLE BOTH EYES SCH (08:12)
--- NOTE | 2017-02-19 08:17 | Cardiology Progress Note ---
<Lisa Stevens E - Last Filed: 02/19/17 07:56> Assessment and Plan - Time spent with patient Time spent with patient: Greater than 30 minutes (1) Atrial fibrillation with rapid ventricular response Status: Chronic Assessment and plan: Increasing short acting calcium channel stephie for better rate control Current Visit: No (2) Coronary artery disease Status: Chronic Assessment and plan: We will restart aspirin today. Current Visit: No Qualifiers: Coronary Disease-Associated Artery/Lesion type: bypass graft [place] vs. transplanted heart: [place] heart Associated angina: without angina Qualified Code(s): I25.810 - Atherosclerosis of coronary artery bypass graft(s) without angina pectoris (3) Status post coronary artery bypass grafting Status: Chronic Assessment and plan: History of CAD. Restarting aspirin now that he can swallow Current Visit: No (4) ESRD (end stage renal disease) on dialysis Status: Chronic Assessment and plan: Dialysis today Current Visit: No (5) IDDM (insulin dependent diabetes mellitus) Status: Chronic Assessment and plan: Insulin per sliding scale. Current Visit: No (6) ESRD (end stage renal disease) on dialysis Status: Chronic Assessment and plan: Hemodialysis today. Avoiding CRUZ inhibitors due to severe renal insufficiency Current Visit: Yes (7) Mitral regurgitation Status: Chronic Assessment and plan: On beta blockers. I cannot incorporate CRUZ inhibitor due to renal insufficiency. Current Visit: Yes Qualifiers: Cardiac valve disease etiology: nonrheumatic Qualified Code(s): I34.0 - Nonrheumatic mitral (valve) insufficiency (8) Anemia Status: Chronic Assessment and plan: Continue to follow H&H daily. Low-dose aspirin today Current Visit: No Qualifiers: Anemia type: due to other cause Other causes of anemia: other specified cause (9) Hypertension Status: Chronic Assessment and plan: Coreg and diltiazem on board. Current Visit: No Cardiology - PN: Subj Interval history: FMD TEACHER: DR. CHAVEZ SUMMARY: 71BM with a history of known CAD (S/P CABG twice, most recently December 2012), pacemaker September 2016 for symptomatic bradycardia, hypertension, diabetes , ESRD on hemodialysis, atrial fib, PAD (multiple IR interventions). Admitted February 12, 2017 in transfer from [facility] for further evaluation of sharp abdominal pain. On arrival, patient was noted to be hypotensive (blood pressure 77/66) and A. fib with RVR (heart rate 124 bpm). IV Diltiazem was initiated and good heart rate control obtained, pressors required initially. Echocardiogram: EF 55%, moderate to severe MR, moderate TR, severe pulmonary hypertension. Patient is not a candidate for anticoagulation due to history of severe anemia September 2016 with GI bleed from AV malformations. Previous abdominal workup was negative (CT abdomen reveals no acute pathology), abdominal pain resolved. FEBRUARY 17, 2017: This morning, patient is maintained on IV Diltiazem at 5 mg/h. He failed his swallowing eval and is not taking anything by mouth at this time , therefore metoprolol, aspirin and Crestor have been held. Should the patient require NG/PEG, will reinitiate meds per this route. Heart rates averaging 89- 109 bpm. He is responding only to painful stimuli at this time. Undergoing dialysis at present. Will further discuss with Dr. Abarca and await additional recommendations January: Remains confused but more awake today. Remains in atrial fibrillation, heart rate averaging 83-117. Will increase his short acting Cardizem as his blood pressure will allow. He did pass his (third) swallow evaluation and is taking his medications orally at this time. This morning we will restart his aspirin. He is not formally anticoagulated because of AVMs. Will further discuss with Dr. Abarca and await additional recommendations. ASSESSMENT/PLAN: 1. ATRIAL FIB WITH RVR - will increase his dose of short acting calcium channel stephie. Off IV Diltiazem. 2. ABDOMINAL PAIN - resolved. Workup benign 3. ESRD - undergoing dialysis this morning 4. HYPERTENSION - adequately controlled. 5. DEMENTIA - this morning appears more coherent. Continue current plan of care. 6. MITRAL REGURGITATION, SEVERE - continue betablocker, avoiding CRUZ 7. PULMONARY HYPERTENSION - no change in plan of care today. 8. DIABETES - continue covering sliding scale 9. CAD S/P CABG TWICE - unable to take ASA at this time. Consider rectal administration. 10. ANEMIA - stable. Not a candidate for anti-coagulation due to significant GI Bleed September 2016 11. PVD - continue current plan of care. 12. HYPOTENSION - resolved 13. DYSPHAGIA - now taking in oral meds Exam (Progress Note) - Constitutional Vitals: Period Temp Pulse Resp BP Sys/Santana Pulse Ox Last 24 Hr 97.4 F-99.1 F 81-117 12-25 41-153/32-121 90-100 Exam: General: [Appears chronically ill. ] [Appears comfortable.] HEENT: [Bilateral arcus, normocephalic, atraumatic. Mucous membranes moist. No jaundice noted. Conjunctiva moist and clear, sclerae anicteric] wearing oxygen mask Neck: 4-6 cm JVD to jaw. No thyromegaly or lymphadenopathy noted. No carotid bruit appreciated Cardiac: [Irregularly irregular rhythm, IV/ HSM heard throughout precordium] Lungs: [Rhonchi throughout, rales posteriorly in the bases. No use of accessory muscles to assist the respiratory pattern.] Oxygen in use via mask Abdomen: Soft, bowel sounds normoactive. Nontender and nondistended. No abdominal bruit or thrill noted. No masses noted. Musculoskeletal: No fluid collection. Decreased range of motion is noted. Extremities: No clubbing, cyanosis noted. [ Upper extremity pulses 2+. Lower extremity pulses difficult to palpate. Amputation noted left foot. Capillary refill less than 3 seconds. Skin: No unusual lesions or rashes. No skin breakdown appreciated. Neuro: Opens eyes to tactile stimuli, aggressive stimuli. No essential tremor is appreciated. Result/EKG - Labs CBC & BMP: 02/19/17 03:29 02/19/17 03:29 Lab Results: I have reviewed the past 24 hour labs Labs: Laboratory Results - last 24 hr 02/18/17 02/18/17 02/18/17 08:11 11:52 16:11 WBC RBC Hgb Hct MCV MCH MCHC RDW Plt Count MPV Neut % (Auto) Lymph % (Auto) Boyd % (Auto) Eos % (Auto) Baso % (Auto) Neut # (Auto) Lymph # (Auto) Boyd # (Auto) Eos # (Auto) Baso # (Auto) Immature Gran % Nucleated RBC % Immature Gran # Nucleated RBCs # Immature Plt Fraction Sodium Potassium Chloride Carbon Dioxide Anion Gap BUN Creatinine GFR Calculation BUN/Creatinine Ratio Glucose POC Glucose 113 H 104 98 Calculated Osmolality Calcium Magnesium Ammonia 02/18/17 02/19/17 02/19/17 20:26 03:29 03:29 WBC 6.3 RBC 3.97 Hgb 11.8 L Hct 34.4 L MCV 86.6 L MCH 30 MCHC 34.3 RDW 17.4 H Plt Count 114 L MPV 11.2 Neut % (Auto) 77.0 H Lymph % (Auto) 9.0 L Boyd % (Auto) 12.2 Eos % (Auto) 0.9 Baso % (Auto) 0.3 Neut # (Auto) 4.9 Lymph # (Auto) 0.6 L Boyd # (Auto) 0.8 Eos # (Auto) 0.1 Baso # (Auto) 0.0 Immature Gran % 0.6 Nucleated RBC % 0.5 Immature Gran # 0.04 Nucleated RBCs # 0.03 Immature Plt Fraction 0.0 Sodium 138 Potassium 3.9 Chloride 100 Carbon Dioxide 30 Anion Gap 11.9 BUN 15 Creatinine 4.90 H GFR Calculation 14 BUN/Creatinine Ratio 3.00 L Glucose 114 H POC Glucose 123 H Calculated Osmolality 276.7 Calcium 8.9 Magnesium 2.3 Ammonia 02/19/17 02/19/17 03:29 07:26 WBC RBC Hgb Hct MCV MCH MCHC RDW Plt Count MPV Neut % (Auto) Lymph % (Auto) Boyd % (Auto) Eos % (Auto) Baso % (Auto) Neut # (Auto) Lymph # (Auto) Boyd # (Auto) Eos # (Auto) Baso # (Auto) Immature Gran % Nucleated RBC % Immature Gran # Nucleated RBCs # Immature Plt Fraction Sodium Potassium Chloride Carbon Dioxide Anion Gap BUN Creatinine GFR Calculation BUN/Creatinine Ratio Glucose POC Glucose 121 H Calculated Osmolality Calcium Magnesium Ammonia 52 H - EKG EKG results: interpreted by nd EKG shows: atrial fibrillation <Rebecca Abarca - Last Filed: 02/19/17 08:50> Assessment and Plan (1) Atrial fibrillation with RVR Status: Acute Current Visit: Yes (2) ESRD (end stage renal disease) on dialysis Status: Chronic Current Visit: Yes (3) Hypothyroidism Status: Chronic Current Visit: Yes (4) Coronary artery disease Status: Chronic Current Visit: No Qualifiers: Coronary Disease-Associated Artery/Lesion type: bypass graft [place] vs. transplanted heart: [place] heart Associated angina: without angina Qualified Code(s): I25.810 - Atherosclerosis of coronary artery bypass graft(s) without angina pectoris (5) Mitral regurgitation Status: Chronic Current Visit: Yes Qualifiers: Cardiac valve disease etiology: nonrheumatic Qualified Code(s): I34.0 - Nonrheumatic mitral (valve) insufficiency Cardiology - PN: Subj Interval history: Mr. Nye continues to have heart rate in the 100s his medications a calcium channel stephie been increased. He appears to be able to swallow after passing his swallowing evaluation we will change his 4 times daily calcium channel stephie to daily extended release assuming he is able to swallow this capsule without difficulty will also increase his beta-stephie. His ejection fraction is 55% and he has severe mitral regurgitation. At this point recommend just titrating his AV garrett blocking agents to goal heart rate between 80 and 100. He is not an anticoagulation candidate due to GI bleeding he continues to have altered mental status. At this point I have nothing further to add to his care other than these changes. I will see as needed. If problems arise please call me or the [facility] team. Exam (Progress Note) - Constitutional Vitals: Period Temp Pulse Resp BP Sys/Santana Pulse Ox Last 24 Hr 97.4 F-99.1 F 81-117 06-21 75-153/45-121 90-100 Exam: Agree with above physical exam. The patient is not conversant. He does not answer close ended questions. He just finished dialysis Result/EKG - Labs CBC & BMP: 02/19/17 03:29 02/19/17 03:29 Labs: Laboratory Results - last 24 hr 02/18/17 02/18/17 02/18/17 11:52 16:11 20:26 WBC RBC Hgb Hct MCV MCH MCHC RDW Plt Count MPV Neut % (Auto) Lymph % (Auto) Boyd % (Auto) Eos % (Auto) Baso % (Auto) Neut # (Auto) Lymph # (Auto) Boyd # (Auto) Eos # (Auto) Baso # (Auto) Immature Gran % Nucleated RBC % Immature Gran # Nucleated RBCs # Immature Plt Fraction Sodium Potassium Chloride Carbon Dioxide Anion Gap BUN Creatinine GFR Calculation BUN/Creatinine Ratio Glucose POC Glucose 104 98 123 H Calculated Osmolality Calcium Magnesium Ammonia 02/19/17 02/19/17 02/19/17 03:29 03:29 03:29 WBC 6.3 RBC 3.97 Hgb 11.8 L Hct 34.4 L MCV 86.6 L MCH 30 MCHC 34.3 RDW 17.4 H Plt Count 114 L MPV 11.2 Neut % (Auto) 77.0 H Lymph % (Auto) 9.0 L Boyd % (Auto) 12.2 Eos % (Auto) 0.9 Baso % (Auto) 0.3 Neut # (Auto) 4.9 Lymph # (Auto) 0.6 L Boyd # (Auto) 0.8 Eos # (Auto) 0.1 Baso # (Auto) 0.0 Immature Gran % 0.6 Nucleated RBC % 0.5 Immature Gran # 0.04 Nucleated RBCs # 0.03 Immature Plt Fraction 0.0 Sodium 138 Potassium 3.9 Chloride 100 Carbon Dioxide 30 Anion Gap 11.9 BUN 15 Creatinine 4.90 H GFR Calculation 14 BUN/Creatinine Ratio 3.00 L Glucose 114 H POC Glucose Calculated Osmolality 276.7 Calcium 8.9 Magnesium 2.3 Ammonia 52 H 02/19/17 07:26 WBC RBC Hgb Hct MCV MCH MCHC RDW Plt Count MPV Neut % (Auto) Lymph % (Auto) Boyd % (Auto) Eos % (Auto) Baso % (Auto) Neut # (Auto) Lymph # (Auto) Boyd # (Auto) Eos # (Auto) Baso # (Auto) Immature Gran % Nucleated RBC % Immature Gran # Nucleated RBCs # Immature Plt Fraction Sodium Potassium Chloride Carbon Dioxide Anion Gap BUN Creatinine GFR Calculation BUN/Creatinine Ratio Glucose POC Glucose 121 H Calculated Osmolality Calcium Magnesium Ammonia
[2017-02-19] MEDS: ASPIRIN EC 81 MG TABLET PO SCH (08:26)
[2017-02-19] MEDS ORDERED: DILTIAZEM 60 MG TABLET PO SCH (09:00)
[2017-02-19] MEDS: FAMOTIDINE 20 MG/2 ML VIAL IV SCH (09:36)
[2017-02-19] MEDS: ENOXAPARIN 30 MG/0.3 ML SYRINGE SUBCUT SCH (11:27)
--- NOTE | 2017-02-19 12:35 | Nephrology Progress Note ---
Nephrology - PN: Subj Interval history: Patient is seen on hemodialysis, his systolic blood pressure is around 100 throughout the treatment, attempts at trying to pull fluid have resulted in dropping his pressure hence we have been unable to pull any fluid off at this point. We will plan on dialyzing the patient tomorrow for 3 hours and UF as tolerated. The patient remains confused is unable to answer where he is or what year it is. Nursing personnel states that he was saying he was at [place] earlier. Assessment/plan 1. End-stage renal disease-we have been dialyzing the patient daily this week to see if this helps with his overall poor health status, that I can tell we have not made much change in his condition he remains with dementia and confusion. 2. Dementia/confusion-I am going to stop his Reglan 3. Cardiomyopathy-this patient has moderate to severe mitral and tricuspid regurgitation with a pulmonary artery pressure of around 85 mmHg 4. Pulmonary hypertension 5. Abdominal pain-this patient presented with complaints of abdominal pain-he admitted that he had been eating dirt. His abdominal pain seems to have resolved 6. Cardiac dysrhythmia-this patient's rate is much better control were trying to get him on p.o. medication to control his rate. Exam (PN)-Nephrology - Vital Signs Vital signs: Period Temp Pulse Resp BP Sys/Santana Pulse Ox Last 24 Hr 97.4 F-99.1 F 79-117 12- 75-153/38-121 90-100 - Lab 02/19/17 03:29 02/19/17 03:29 Most recent lab results ABG pH 7.300 (7.35-7.45) L 02/15/17 03:55 ABG pCO2 43.2 MM HG (35-48) 02/15/17 03:55 ABG pO2 81.9 MM HG (80-95) 02/15/17 03:55 ABG HCO3 20.1 MMOL/L (20-26) 02/15/17 03:55 ABG O2 Saturation 95.2 % (95-100) 02/15/17 03:55 Calcium 8.9 MG/DL (8.5-10.1) 02/19/17 03:29 Magnesium 2.3 MG/DL (1.8-2.4) 02/19/17 03:29 Assessment and Plan (1) Abdominal pain Status: Acute Assessment and plan: Patient's abdominal pain seems to be improved, the patient states he ate some white dirt yesterday and thinks that this may have been the cause to his abdominal pain, CT scan of the abdomen did not seem to reveal any acute pathology to explain his pain. Current Visit: Yes (2) Atrial fibrillation with RVR Status: Acute Assessment and plan: Continue Cardizem for rate control Current Visit: Yes (3) Diabetes mellitus Status: Chronic Assessment and plan: Monitor with a sliding scale Current Visit: No Qualifiers: Diabetes mellitus type: type 2 Diabetes mellitus complication status: with hyperosmolarity (4) End stage renal disease on dialysis Status: Chronic Assessment and plan: We will plan on hemodialysis today. Current Visit: No
[2017-02-19] MEDS: DILTIAZEM CD 240 MG CAPSULE PO SCH (12:37)
--- NOTE | 2017-02-19 14:03 | Hospitalist Progress Note ---
Assessment and Plan (1) ESRD (end stage renal disease) on dialysis Status: Chronic Assessment and plan: Pulmonary edema has improved. The patient is ready to move to a monitored bed. He will continue on dialysis per blister pack operator. We are ready to begin physical therapy. Current Visit: No (2) Atrial fibrillation with RVR Status: Acute Current Visit: Yes Hospitalist: Subjective Interval history: Mr. Nye is more awake today. He remains disoriented but is more cooperative with care. He is having dialysis at present. Exam - Constitutional Vitals: Period Temp Pulse Resp BP Sys/Santana Pulse Ox Last 24 Hr 97.4 F-99.1 F 79-117 12-28 75-153/38-95 90-100 Exam: Constitutional System: Minimal distress. No tremulousness. The patient is less short of breath today after dialysis was accomplished yesterday Head: Normocephalic, atraumatic. Ears, Nose and Throat System: No evidence of Otitis or Mastoiditis. No epistaxis or discharge Eyes System: Pupils equal, round, and reactive. Extraocular muscles intact. Neck: Supple, without adenopathy, trace jugular venous distention. No thyromegaly, neck mass, or prior surgery apparent. Respiratory System: Chest less pulmonary edema to auscultation. Cardiovascular System: Heart with regular rate and rhythm. Systolic murmur GI System: Abdomen soft, nontender. Normo active bowel sounds present. Musculoskeletal System: limbs with 1+ pedal edema. Full distal pulses. Neurological System: No discernable sensory deficit. No aphasia Psychiatric System: Conversation is disoriented Results - Labs CBC & BMP: 02/19/17 03:29 02/19/17 03:29 Lab Results: I have reviewed the past 24 hour labs
[2017-02-19] MEDS: LACTULOSE 20 GM/30 ML UDCUP PO SCH ×2 (15:11→20:35)
[2017-02-19] MEDS: LORazepam 2 MG/1 ML VIAL IV PRN ×2 (16:45→21:42)
[2017-02-20] MEDS: FAMOTIDINE 20 MG/2 ML VIAL IV SCH ×3 (00:49→23:43)
[2017-02-20] MEDS: LACTULOSE 20 GM/30 ML UDCUP PO SCH ×3 (00:59→21:44)
[2017-02-20] MEDS: CARVEDILOL 12.5 MG TABLET PO SCH ×3 (00:59→21:45)
[2017-02-20] MEDS: prednisoLONE ACETATE 1% OPH SUSP 5 ML BOTTLE BOTH EYES SCH ×3 (01:00→21:46)
[2017-02-20] MEDS: HALOPERIDOL 5 MG/ML AMP IM PRN (04:34)
[2017-02-20 05:09] LABS: Calcium 9.3 MG/DL (8.5-10.1); Magnesium 2.4 MG/DL (1.8-2.4); Osmolality,Calculated 277.5 MOS/KG (273-304); Potassium 3.9 MMOL/L (3.5-5.1)
[2017-02-20] MEDS: METOCLOPRAMIDE 5 MG TABLET PO SCH ×4 (07:30→16:47)
[2017-02-20] MEDS: INSULIN LISPRO 100 UNIT/ML SUBCUT SCH ×5 (07:43→21:45)
[2017-02-20] MEDS: CALCIUM ACETATE 667 MG CAPSULE PO SCH ×4 (07:44→16:48)
--- NOTE | 2017-02-20 10:08 | Dialysis Note ---
Dialysis Note - Dialysis Note Mr. Nye is seen during his hemodialysis. He is tolerating dialysis well but he is confused as before. Medicines are reviewed and there is no obvious source of contusion there. We will continue to dialyze as per his schedule
[2017-02-20] MEDS: ALLOPURINOL 300 MG TABLET PO SCH (11:56)
[2017-02-20] MEDS: ASPIRIN EC 81 MG TABLET PO SCH (11:57)
[2017-02-20] MEDS: DILTIAZEM CD 240 MG CAPSULE PO SCH (11:57)
[2017-02-20] MEDS: MULTIVITAMIN (BEROCCA) TABLET PO SCH (11:57)
[2017-02-20] MEDS: ENOXAPARIN 30 MG/0.3 ML SYRINGE SUBCUT SCH (11:57)
[2017-02-20] MEDS: LEVOTHYROXINE 100 MCG VIAL IV SCH (11:58)
--- NOTE | 2017-02-20 14:18 | Hospitalist Progress Note ---
Assessment and Plan (1) ESRD (end stage renal disease) on dialysis Status: Chronic Assessment and plan: Pulmonary edema has improved. The patient is now on monitored bed. The patient is having dialysis at present and will continue telemetry monitoring with supportive care. Current Visit: No (2) Atrial fibrillation with RVR Status: Acute Current Visit: Yes Hospitalist: Subjective Interval history: Mr. Nye is resting quietly in bed. The patient is in the dialysis unit and receiving dialysis at present. The patient remains delirious. The patient does not complain of shortness of breath or angina. Exam - Constitutional Vitals: Period Temp Pulse Resp BP Sys/Santana Pulse Ox Last 24 Hr 97.0 F-98.1 F 75-110 5-24 95-153/44-70 90-96 Exam: Constitutional System: Minimal distress. No tremulousness. Head: Normocephalic, atraumatic. Ears, Nose and Throat System: No evidence of Otitis or Mastoiditis. No epistaxis or discharge Eyes System: Pupils equal, round, and reactive. Extraocular muscles intact. Neck: Supple, without adenopathy, trace jugular venous distention. No thyromegaly, neck mass, or prior surgery apparent. Respiratory System: Chest less pulmonary edema to auscultation. Cardiovascular System: Heart with regular rate and rhythm. Systolic murmur GI System: Abdomen soft, nontender. Normo active bowel sounds present. Musculoskeletal System: limbs with trace pedal edema. Full distal pulses. Neurological System: No discernable sensory deficit. No aphasia Psychiatric System: Conversation is disoriented Results - Labs CBC & BMP: 02/19/17 03:29 02/20/17 03:07 Lab Results: I have reviewed the past 24 hour labs
[2017-02-20] MEDS: LORazepam 2 MG/1 ML VIAL IV PRN (19:11)
[2017-02-21] MEDS: LORazepam 2 MG/1 ML VIAL IV PRN (00:12)
[2017-02-21] MEDS: LEVOTHYROXINE 100 MCG VIAL IV SCH (06:38)
[2017-02-21 08:15] LABS: ABG Base Excess 4.7 MMOL/L (-2.5-2.5); ABG HCO3 30.5 MMOL/L (20-26); ABG PCO2 49.3 MM HG (35-48); ABG PH 7.409 (7.35-7.45)
[2017-02-21 08:17] LABS: ABG PO2 18.7 MM HG (80-95)
[2017-02-21 08:18] LABS: ABG Oxygen Saturation 28.8 % (95-100)
[2017-02-21] MEDS ORDERED: PROPOFOL 200 MG/20 ML VIAL IV ONE (08:28)
[2017-02-21] MEDS ORDERED: MIDAZOLAM 2 MG/2 ML VIAL ONE ×2 (08:29→08:30)
[2017-02-21] MEDS ORDERED: PHENYLEPHRINE DRIP 40 MG/250 ML PREMIX IV ONE (08:29)
[2017-02-21] MEDS ORDERED: SUCCINYLCHOLINE 200 MG/10 ML VIAL ONE (08:29)
[2017-02-21] MEDS ORDERED: MIDAZOLAM 2 MG/2 ML VIAL IV ONE (08:30)
[2017-02-21] MEDS ORDERED: SUCCINYLCHOLINE 200 MG/10 ML VIAL IV ONE ×3 (08:30→08:33)
[2017-02-21] MEDS ORDERED: MIDAZOLAM 10 MG/2 ML VIAL ONE (08:34)
[2017-02-21 08:36] LABS: Osmolality,Calculated 274.8 MOS/KG (273-304); Potassium 3.9 MMOL/L (3.5-5.1)
--- NOTE | 2017-02-21 08:38 | XRay Report ---
Exam: XR chest 1V portable Date: 02/21/2017 7:58 AM Indication: Shortness of breath Comparison: 02/13/2017 Technical: AP Findings: Cardiac pacing device with atrial ventricular leads are present. Sternotomy wires are present. Tiny low volume left effusion. No pneumothorax. Mediastinum is otherwise intact. Bony structures reveal no acute findings Impression: 1. Persistent low volume left effusion 2. Cardiomegaly with stable appearance the cardiac pacer device and sternotomy wires PROCEDURE INTERPRETED AT [facility] DEPARTMENT OF RADIOLOGY Final Report Signed by: Dr. Kelechi Candelario
[2017-02-21] MEDS: PHENYLEPHRINE DRIP 40 MG/250 ML PREMIX IV SCH (08:39)
[2017-02-21] MEDS: NOREPINEPHRINE 16 MG in SODIUM CHLORIDE 0.9% 242 ML IV SCH (08:40)
[2017-02-21] MEDS ORDERED: NOREPINEPHRINE 4 MG/4 ML VIAL IV ONE (08:43)
[2017-02-21] MEDS ORDERED: VECURONIUM 10 MG VIAL IV ONE (09:02)
--- NOTE | 2017-02-21 09:02 | Pulmonology Consult Note ---
Assessment and Plan (1) Acute respiratory failure Status: Acute Assessment and plan: Patient now on mechanical ventilation. There is a question about aspiration. I will plan bronchoscopy in the morning. Adjust ventilator and wean as parameters allow. Current Visit: Yes (2) End stage renal disease on dialysis Status: Chronic Assessment and plan: Continuing with regular dialysis. Current Visit: No (3) GI bleed Status: Chronic Assessment and plan: Prevents anticoagulation. Current Visit: No Qualifiers: GI bleed type/associated pathology: unspecified gastrointestinal hemorrhage type Qualified Code(s): K92.2 - Gastrointestinal hemorrhage, unspecified (4) IDDM (insulin dependent diabetes mellitus) Status: Chronic Assessment and plan: Good control on sliding scale. Current Visit: No (5) Status post coronary artery bypass grafting Status: Chronic Assessment and plan: Has normal LV ejection fraction but severe MR. Current Visit: No (6) Tachy-fuentes syndrome Status: Chronic Assessment and plan: Has pacemaker Current Visit: No (7) Severe mitral regurgitation Status: Acute Assessment and plan: This is being managed medically. Defer to cardiology. Not a good candidate for mitral valve replacement. Current Visit: Yes History of Present Illness Chief complaint: Respiratory failure History of present illness: Mr. Nye is a 71 year old male who was admitted a little over a week ago with atrial fibrillation and rapid ventricular response. He has a history of previous coronary bypass surgery and a myocardial infarction. He has diabetes. He is on hemodialysis. He was admitted first to the unit and treated with a Cardizem drip. Stabilized and went to the floor. He has had dialysis on a regular basis. This morning he became acutely short of breath and a rapid response was called with him moved to the CCU. He has subsequently been intubated by Dr. Thakkar. He is now on the ventilator and somewhat responsive. He has a history of peripheral vascular disease. He has a history of bleeding and cannot be on anticoagulants. He has dementia. There has been no mention of considering mitral valve replacement. He is being managed medically. Home Medications Medication Instructions Recorded Confirmed Type Famotidine Tab [Pepcid Tab] 20 mg PO BID 06/22/16 02/13/17 History Allopurinol 300 mg PO DAILY 07/17/16 02/13/17 History Calcium Acetate 4 capsule PO TID W/MEALS 07/17/16 02/13/17 History Metoclopramide Tab [Reglan Tab] 5 mg PO AC 07/17/16 02/13/17 History Levothyroxine Tab [Synthroid Tab] 75 mcg PO DAILY@0700 10/06/16 02/13/17 History Carvedilol 2 tablet PO QAM 10/16/16 02/13/17 History Docusate Sodium Cap [Colace Cap] 100 mg PO BID 10/16/16 02/13/17 History Carvedilol [Coreg] 6.25 mg PO BEDTIME 01/06/17 02/13/17 History Cyclobenzaprine [Flexeril] 10 mg PO DAILY 01/06/17 02/13/17 History Vit B Cmplx 3/Folic AC/C/Biot 1 each PO DAILY 01/06/17 02/13/17 History [Sarai-Scooby Rx Tablet] Allergies Allergy/AdvReac Type Severity Reaction Status Date / Time No Known Allergies Allergy Verified 02/12/17 06:53 ROS unobtainable: due to endotracheal tube Exam (Pulmonay) H&P - Constitutional Vitals: Period Temp Pulse Resp BP Sys/Santana Pulse Ox Last 24 Hr 96.7 F-97.1 F 110-119 - 98-163/62-118 93-100 Exam: Pulses 120. Blood pressure about 140/110. Patient is moving about a little although he has had sedation for intubation. Pupils react to light. Orotracheal tube in place. Neck is supple. Chest reveals a few scattered rhonchi. Heart rapid and irregular no murmur. Abdomen soft no masses. Extremities she has 1+ peripheral edema. Medical,Surgical,& Family Hx - Medical History Cardio: History of: Cardiac Dysrhythmia (A fib/ A flutter), Cerebrovascular Disease, CHF, CAD (Coronary bypass grafting 2 only a single vein graft to the OM open 01/07), Hypertension, [place] (2000, 2009), Valvular Heart Disease, Cardiovascular Problems (CABG X 2 separate operations. Only SVG to OM1 open at [facility] 01/07.) Neurology: History of: Cerebrovascular Accident (2000) No history of: Seizures HEENT: History of: Eye Problem, Dental Problems (NO DENTURES AND NO TEETH), Glaucoma Endocrine: History of: Diabetes Mellitus (IDDM), Diabetes Mellitus (NIDDM), Dyslipidemia Rheumatology: History of;: Gout, Rheumatoid Arthritis Respiratory: History of: Pneumonia (HX), Respiratory Problems (2 LITERS OF OXYGEN AT BEDTIME) No history of: COPD Renal: History of: Dialysis (MWF), Renal Failure Gastrointestinal: History of: GERD, Gastrointestinal Bleed (09/2014 - resulting anticoagulation cessation), Polyps, GI Problems Musculoskeletal: History of: 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), Back/Neck Problems, Musculoskeletal Problems (arthritits) Hematology: History of: Anemia, Bleeding Problems No history of: Blood Transfusion Reaction Other: History of: Cancer (prostate) No history of: Anesthesia Reactions - Surgical History Cardiac Surgeries: Sugical HX of: Cardiac Catheterization, Cardiac Surgery (CABG ), Vascular Access Devices Thoracic Surgeries: Patient denies;: Organ Transplant Neurologic Surgeries: Patient denies: Neurologic Surgery HEENT Surgeries: Surgical HX of: Eye Surgery (12/2016 Cataract Rt Eye; 01/21/17 Sched for Lt Cataract) Abdominal Surgeries: Surgical HX of: Abdominal Surgery, Cholecystectomy, Colonoscopy, EGD Orthopedic Surgeries: Surgical HX of;: Implanted Devices (LEFT ARM AND LEFT CHEST DIALYSIS) - Family History Family History: Reports;: Family Cancer, Family Diabetes, Family Heart Disease, Family Hypertension Denies;: Family Anesthesia Reaction, Family Psychiatric Problems, Family Stroke - Social History Smoking Status: Never smoker Frequency of Alcohol Use: None Type of Drug Use: None Results - Labs CBC & BMP: 02/19/17 03:29 02/21/17 08:03 Lab Results: I have reviewed the past 24 hour labs - Diagnostic Findings Procedure: Chest x-ray: image reviewed by me (ET tube in good position. Both lungs expanded. Slightly increased interstitial infiltrates on the right consistent with congestive heart failure. Difficult to see if there is any acute infiltrate.)
[2017-02-21] MEDS ORDERED: VECURONIUM 10 MG VIAL IV PRN (09:06)
--- NOTE | 2017-02-21 09:11 | Hospitalist Progress Note ---
Assessment and Plan (1) ESRD (end stage renal disease) on dialysis Status: Chronic Assessment and plan: The patient appears to have aspirated. He is now orally intubated and mechanically ventilated. The patient is stable and will continue with supportive care. I have consulted the sampling theory teacher and continue coordinating care with matching machine operator. Current Visit: No (2) Atrial fibrillation with RVR Status: Acute Current Visit: Yes Hospitalist: Subjective Interval history: The patient became hypoxic and hypotensive this morning. He appeared to have aspiration. The patient is now emergently transferred to intensive care unit following a rapid response team activation. Upon my arrival in the coronary critical care unit, the patient was seen to be hypoxic and hypotensive. Pulse was still palpable. We arranged for intubation and central line placement. Chest x-ray confirms ET tube appropriately placed. Dr. Benito was readily consulted and I coordinate care with him. Critical care time 73 minutes, which does not include billable procedures. Exam - Constitutional Vitals: Period Temp Pulse Resp BP Sys/Santana Pulse Ox Last 24 Hr 96.7 F-97.1 F 110-119 12-21 98-163/62-118 93-100 Exam: Constitutional System: No tremulousness. The patient has bucking of the ventilator and will be paralyzed. The patient is now orally intubated and mechanically ventilated. Head: Normocephalic, atraumatic. Ears, Nose and Throat System: No evidence of Otitis or Mastoiditis. No epistaxis or discharge Eyes System: Pupils left larger than right. Extraocular muscles intact. Neck: Supple, without adenopathy, trace jugular venous distention. No thyromegaly, neck mass, right carotid endarterectomy scar apparent. Right central venous catheter placed via the subclavian approach Respiratory System: Chest less pulmonary edema to auscultation. Cardiovascular System: Heart with regular rate and rhythm. Systolic murmur GI System: Abdomen soft, nontender. Normo active bowel sounds present. Musculoskeletal System: limbs with trace pedal edema. Full distal pulses. Results - Labs CBC & BMP: 02/19/17 03:29 02/21/17 08:03 Lab Results: I have reviewed the past 24 hour labs
--- NOTE | 2017-02-21 09:13 | Event Note ---
Central venous line placement: The patient was draped in a sterile fashion and sterile hand technique was utilized. I was assisted in the procedure by Maria T Chan PA-C. I placed local anesthetic in the right subclavian space and entered the right subclavian vein. A 3 lm catheter was placed using modified Seldinger technique. The patient had no apparent complications and chest x-ray has been ordered.
--- NOTE | 2017-02-21 09:15 | Event Note ---
Oral tracheal intubation: I supervised Maria T Chan PA-C. We identified the patient and identified that he needed intubation to correct hypoxemia. The patient received sedation with 3 mg Versed and was paralyzed with 100 mg succinylcholine. Zoar scope technique was used to identify the vocal cords. Suction was used to clear the hypopharynx. I observed as the 7.5 endotracheal tube was placed through the vocal cords and secured at 21 cm from the lips. Placement was verified with color change cube. Chest x-ray confirmed appropriate ET tube placement. The patient was found to be medium hard to bag and upon beginning mechanical ventilation the peak pressures were 45. I coordinated care with Dr. Benito who initiated mechanical ventilation.
--- NOTE | 2017-02-21 09:51 | XRay Report ---
Exam: XR chest 1V portable Date: 02/21/2017 8:38 AM Indication: Intubation Comparison: 02/21/2017 7:53 AM Technical: AP Findings: Endotracheal tube has been placed at level of mid clavicle aortic knob junction. Left-sided cardiac pacing device and sternotomy wires are present. Low volume effusion present. There is improved aeration in the lung de jesus with deeper inspiratory effort. No pneumothorax. Mild cardiomegaly. Impression: 1. Interval placement endotracheal tube at the aortic knob just below the mid clavicle 2. Stable persistent cardiac pacing device and sternotomy wires 3. Tiny low volume left effusion PROCEDURE INTERPRETED AT [facility] DEPARTMENT OF RADIOLOGY Final Report Signed by: Dr. Kelechi Candelario
--- NOTE | 2017-02-21 09:53 | XRay Report ---
Exam: XR chest 1V portable Date: 02/21/2017 8:54 AM Indication: Post central line placement and nasogastric tube placement Comparison: 8:29 AM same day Technical: AP Findings: The endotracheal tube nasogastric tube right-sided subclavian catheter are in good position. Sternotomy wires are present. Cardiac pacing device is present. Low volume left effusion. The stent again noted in the right upper axillary region. Previous cholecystectomy. Impression: 1. Stable appearance of life support tubing is present with interval placement nasogastric tube in the right subclavian catheter without pneumothorax. Remainder examination is unchanged with stable appearance the cardiac pacing device and low volume left effusion PROCEDURE INTERPRETED AT [facility] DEPARTMENT OF RADIOLOGY Final Report Signed by: Dr. Kelechi Candelario
--- NOTE | 2017-02-21 10:11 | Nephrology Progress Note ---
Nephrology - PN: Subj Interval history: Mr. Nye is seen in follow-up of his end-stage renal disease. He experienced respiratory failure this morning and required intubation. He was hypotensive initially and required vasopressors but is now improved and coming off of those vasopressors. He did undergo dialysis yesterday. His family is visiting with him currently and understands he is quite ill. Our plan is to continue support with dialysis Exam (PN)-Nephrology - Vital Signs Vital signs: Period Temp Pulse Resp BP Sys/Santana Pulse Ox Last 24 Hr 96.7 F-97.1 F 110-119 12-21 98-163/62-118 93-100 - Lab 02/19/17 03:29 02/21/17 08:03 Most recent lab results ABG pH 7.409 (7.35-7.45) 02/21/17 08:14 ABG pCO2 49.3 MM HG (35-48) H 02/21/17 08:14 ABG pO2 18.7 MM HG (80-95) L* 02/21/17 08:14 ABG HCO3 30.5 MMOL/L (20-26) H 02/21/17 08:14 ABG O2 Saturation 28.8 % (95-100) L 02/21/17 08:14 Calcium 9.0 MG/DL (8.5-10.1) 02/21/17 08:03 Magnesium 2.4 MG/DL (1.8-2.4) 02/20/17 03:07
[2017-02-21 10:25] LABS: Pt O2 Delivery Device Ventilator
[2017-02-21 10:27] LABS: ABG Base Excess 0.3 MMOL/L (-2.5-2.5); ABG HCO3 24.7 MMOL/L (20-26); ABG Oxygen Saturation 99.8 % (95-100); ABG PCO2 43.5 MM HG (35-48); ABG TCO2 22.1 MMOL/L (23-27)
[2017-02-21] MEDS: INSULIN LISPRO 100 UNIT/ML SUBCUT SCH ×4 (10:40→21:06)
[2017-02-21] MEDS: CALCIUM ACETATE 667 MG CAPSULE PO SCH ×3 (10:40→16:13)
[2017-02-21] MEDS: METOCLOPRAMIDE 5 MG TABLET PO SCH ×3 (10:40→16:58)
[2017-02-21] MEDS: FAMOTIDINE 20 MG/2 ML VIAL IV SCH ×2 (11:08→23:30)
[2017-02-21] MEDS: ENOXAPARIN 30 MG/0.3 ML SYRINGE SUBCUT SCH (11:08)
[2017-02-21] MEDS: DILTIAZEM CD 240 MG CAPSULE PO SCH ×2 (11:08→12:20)
[2017-02-21] MEDS: MULTIVITAMIN (BEROCCA) TABLET PO SCH (11:08)
[2017-02-21] MEDS: LACTULOSE 20 GM/30 ML UDCUP PO SCH ×2 (11:08→21:06)
[2017-02-21] MEDS: ASPIRIN EC 81 MG TABLET PO SCH (11:09)
[2017-02-21] MEDS: ALLOPURINOL 300 MG TABLET PO SCH (11:09)
[2017-02-21] MEDS: DILTIAZEM 60 MG TABLET PO SCH (11:36)
[2017-02-21] MEDS: MIDAZOLAM 100 MG in SODIUM CHLORIDE 0.9% 80 ML IV SCH (11:50)
[2017-02-21] MEDS: CARVEDILOL 12.5 MG TABLET PO SCH ×2 (12:00→21:06)
[2017-02-21] MEDS: prednisoLONE ACETATE 1% OPH SUSP 5 ML BOTTLE BOTH EYES SCH ×2 (12:43→21:06)
[2017-02-21] MEDS: NYSTATIN 500,000 UNIT/5 ML UDCUP SWISH/SWAL SCH ×2 (16:58→21:06)
[2017-02-21] MEDS: PROPOFOL 1,000 MG/100 ML BOTTLE IV SCH (18:54)
[2017-02-22] MEDS: NOREPINEPHRINE 16 MG in SODIUM CHLORIDE 0.9% 242 ML IV SCH ×2 (02:16→16:42)
[2017-02-22 03:48] LABS: ABG Base Excess 0.3 MMOL/L (-2.5-2.5); ABG Oxygen Saturation 99.4 % (95-100); ABG PCO2 40.8 MM HG (35-48); ABG PH 7.406 (7.35-7.45); ABG TCO2 26.3 MMOL/L (23-27)
[2017-02-22 04:53] LABS: Basophils % 0.3 % (0.0-0.8); Eosinophils # 0.1 10*3/uL (0.0-0.87); Eosinophils % 1.3 % (0.00-10.9); Hematocrit 36.6 VOL% (42.0-52.0); Hemoglobin 12.5 GM/DL (14.0-18.0); Immature Granulocytes % 0.5 %; Immature Granulocytes Absolute 0.04 #; Lymphocytes % 11.1 % (21.2-54.2); Mean Corpuscular HGB Conc 34.2 GM/DL (32-36); Mean Corpuscular Hemoglobin 29 PG (27-34); Mean Corpuscular Volume 86.1 FL (87-102); Mean Platelet Volume 10.8 FL (9.6-12.0); Monocytes # 0.8 10*3/uL (0.11-0.8); Monocytes % 8.6 % (1.7-12.7); NRBC # 0.03 10*3/uL; Neutrophils # 6.9 10*3/uL (1.4-7.4); Neutrophils % 78.2 % (38.7-73.9); Platelet Count 168 T/CUMM (130-400); Red Blood Count 4.25 MC/CUMM (3.8-5.5); Red Cell Distribution Width 16.8 % (9.3-17.3); White Blood Count 8.8 T/CUMM (4-12)
[2017-02-22 05:28] LABS: Albumin 2.5 G/DL (3.4-5.0); Bilirubin,Total 1.6 MG/DL (0.2-1.0); Calcium 8.5 MG/DL (8.5-10.1); Osmolality,Calculated 280.5 MOS/KG (273-304); Potassium 3.6 MMOL/L (3.5-5.1); Total Protein 6.9 G/DL (6.4-8.3)
[2017-02-22] MEDS: LEVOTHYROXINE 100 MCG VIAL IV SCH (06:15)
--- NOTE | 2017-02-22 07:26 | Pulmonology Progress Note ---
Pulmonary - PN: Subj Interval history: 71-year-old black male is a dialysis patient. He had acute decreased level of consciousness and respiratory distress yesterday and was intubated. It is suspected that he has aspirated. Plans are for bronchoscopy this morning. Presently on the ventilator and his ABGs look okay. Exam (Progress Note) - Constitutional Vitals: Period Temp Pulse Resp BP Sys/Santana Pulse Ox Last 24 Hr 98.8 F-100.2 F 70-132 11-26 66-194/22-117 98-100 Exam: Patient does recall when I tried to check his pupillary reflexes which are positive. I cannot get him to respond to verbal stimuli. He will flinch a little on painful stimulus. Vital signs normal. Pupils do react, the left one a little better than the right one in the left one is a little larger than the right lung. He has arcus senilis. Orotracheal tube is in place. Neck is supple. Chest reveals some rhonchi bilaterally equal breath sounds. Heart normal rate rhythm no murmurs. Abdomen soft nontender. Extremities he has 1+ peripheral edema. Results - Labs CBC & BMP: 02/22/17 04:00 02/22/17 04:00 Lab Results: I have reviewed the past 24 hour labs - Diagnostic Findings Procedure: Chest x-ray: image reviewed by me (ET tube good position. Left pleural blunting. Probable left basilar infiltrate.) Assessment and Plan (1) Acute respiratory failure Status: Acute Assessment and plan: Patient now on mechanical ventilation. There is a question about aspiration. I will plan bronchoscopy in the morning. Adjust ventilator and wean as parameters allow. 02/22/2017 ABGs look good. He has a good bit of purulent looking secretions. Plan bronchoscopy for cultures. Continuing empiric antibiotics. Current Visit: Yes (2) End stage renal disease on dialysis Status: Chronic Assessment and plan: Continuing with regular dialysis. Current Visit: No (3) GI bleed Status: Chronic Assessment and plan: Prevents anticoagulation. 02/22/2017 defer to GI Current Visit: No Qualifiers: GI bleed type/associated pathology: unspecified gastrointestinal hemorrhage type Qualified Code(s): K92.2 - Gastrointestinal hemorrhage, unspecified (4) IDDM (insulin dependent diabetes mellitus) Status: Chronic Assessment and plan: Good control on sliding scale. 02/22/2017 blood sugars are fairly well controlled Current Visit: No (5) Status post coronary artery bypass grafting Status: Chronic Assessment and plan: Has normal LV ejection fraction but severe MR. 02/22/2017 there may be an element of congestive failure related to his MR Current Visit: No (6) Tachy-fuentes syndrome Status: Chronic Assessment and plan: Has pacemaker Current Visit: No (7) Severe mitral regurgitation Status: Acute Assessment and plan: This is being managed medically. Defer to cardiology. Not a good candidate for mitral valve replacement. Current Visit: Yes
[2017-02-22] MEDS ORDERED: LIDOCAINE 1% 20 ML VIAL MISC INJ ONE (07:30)
--- NOTE | 2017-02-22 07:42 | XRay Report ---
Portable chest Date: 02/22/2017 Clinical history: Endotracheal tube placement Comparison: 02/21/2017 Technique: Portable AP sitting chest Findings: The heart is normal in size with prior median sternotomy. Left subclavian ventricular permanent pacemaker. Stable supportive devices with stable diffuse parenchymal findings. Persistent small pleural effusions. No acute osseous findings. Impression: No significant change in the appearance of the chest when compared to the previous exam. PROCEDURE INTERPRETED AT [facility] DEPARTMENT OF RADIOLOGY Final Report Signed by: Dr. Brandy Ambrose
--- NOTE | 2017-02-22 07:42 | Operative Note ---
Date of procedure: 02/22/17 (Fiberoptic bronchoscopy with bronchial washings) Pre-op diagnosis: Aspiration pneumonia, retained secretions Post-op diagnosis: same Procedure: After an appropriate timeout to be sure we were dealing with Ra Nye, patient's ventilator was turned to 100% oxygen. His Versed infusion was increased to the point of sedation. The fiberoptic bronchoscope was introduced via the side arm of the endotracheal tube. The lower trachea had increased secretions. Lizeth was sharp. Both mainstem bronchi were erythematous. There were retained secretions in the bases. There were no visible endobronchial lesions. Using saline irrigation we lavaged both sides and remove secretions. These were sent for cultures. There were no immediate complications. Bronchoscope was removed and the patient remained on the ventilator in the CCU in stable condition. Findings of diffuse erythema and retained secretions are consistent with aspiration. Anesthesia: conscious sedation Surgeon / Physician: Torito Benito Estimated blood loss: none Specimens: other (Ocular washings for cultures) Condition: stable Disposition: ICU (Actually ccu) Results - Labs CBC & BMP: 02/22/17 04:00 02/22/17 04:00 Discharge Plan - Discharge Medications No Action Metoclopramide Tab [Reglan Tab] 5 mg PO AC Allopurinol 300 mg PO DAILY Levothyroxine Tab [Synthroid Tab] 75 mcg PO DAILY@0700 Docusate Sodium Cap [Colace Cap] 100 mg PO BID Carvedilol 2 tablet PO QAM Cyclobenzaprine [Flexeril] 10 mg PO DAILY Famotidine Tab [Pepcid Tab] 20 mg PO BID Calcium Acetate 4 capsule PO TID W/MEALS Vit B Cmplx 3/Folic AC/C/Biot [Sarai-Scooby Rx Tablet] 1 each PO DAILY Carvedilol [Coreg] 6.25 mg PO BEDTIME - Follow Up or Referral - Forms/Instructions
[2017-02-22] MEDS: INSULIN LISPRO 100 UNIT/ML SUBCUT SCH ×4 (08:44→20:46)
[2017-02-22] MEDS: FAMOTIDINE 20 MG/2 ML VIAL IV SCH (09:47)
[2017-02-22] MEDS: NYSTATIN 500,000 UNIT/5 ML UDCUP SWISH/SWAL SCH ×4 (09:47→20:47)
[2017-02-22] MEDS: PROPOFOL 1,000 MG/100 ML BOTTLE IV SCH (09:47)
[2017-02-22] MEDS: DILTIAZEM 60 MG TABLET PO SCH (09:48)
[2017-02-22] MEDS: LEVOFLOXACIN INJ 250 MG in PREMIX 1 EACH IV SCH (09:48)
[2017-02-22] MEDS: LACTULOSE 20 GM/30 ML UDCUP PO SCH ×2 (09:48→20:46)
[2017-02-22] MEDS: METOCLOPRAMIDE 5 MG TABLET PO SCH ×3 (09:48→17:36)
[2017-02-22] MEDS: CALCIUM ACETATE 667 MG CAPSULE PO SCH ×3 (09:49→17:32)
[2017-02-22] MEDS: MULTIVITAMIN (BEROCCA) TABLET PO SCH (09:49)
[2017-02-22] MEDS: ASPIRIN EC 81 MG TABLET PO SCH (09:49)
[2017-02-22] MEDS: ALLOPURINOL 300 MG TABLET PO SCH (09:49)
[2017-02-22] MEDS: PHENYLEPHRINE DRIP 40 MG/250 ML PREMIX IV SCH (09:49)
[2017-02-22] MEDS: CARVEDILOL 12.5 MG TABLET PO SCH ×2 (09:49→20:46)
[2017-02-22] MEDS: prednisoLONE ACETATE 1% OPH SUSP 5 ML BOTTLE BOTH EYES SCH ×2 (09:50→20:47)
[2017-02-22] MEDS: CLINDAMYCIN INJ 600 MG in PREMIX 1 EACH IV SCH ×2 (11:21→17:42)
--- NOTE | 2017-02-22 12:02 | Hospitalist Progress Note ---
Assessment and Plan (1) ESRD (end stage renal disease) on dialysis Status: Chronic Current Visit: No (2) Atrial fibrillation Status: Chronic Current Visit: No Qualifiers: Atrial fibrillation type: persistent Qualified Code(s): I48.1 - Persistent atrial fibrillation (3) Aspiration into airway Status: Acute Assessment and plan: Patient with episode of aspiration yesterday requiring intubation Current Visit: Yes (4) Respiratory failure Status: Acute Assessment and plan: Secondary to aspiration Pulmonary assisting to vent management Bronch today with diffuse erythema and retained secretions Current Visit: Yes Hospitalist: Subjective Interval history: No acute events overnight. Patient is intubated and sedated. Exam - Constitutional Vitals: Period Temp Pulse Resp BP Sys/Santana Pulse Ox Last 24 Hr 97.5 F-100.2 F 70-126 11-28 66-137/32-104 98-100 General appearance: normal weight, other (et tube in place) - Head Head exam: Present: normocephalic, atraumatic - Eye Eye exam: Present: EOMI Pupils: Present: CHRIS - ENT ENT exam: Present: normal exam - Neck Neck exam: Present: normal inspection - Respiratory Respiratory exam: Present: other (coarse) - Cardiovascular Cardiovascular exam: Present: regular rate and rhythm - GI/Abdominal GI/Abdominal exam: Present: normal bowel sounds, soft - Extremities Exam Extremities exam: Present: normal inspection - Back Exam Back exam: Present: normal inspection - Skin Skin exam: Present: warm, intact Results - Labs CBC & BMP: 02/22/17 04:00 02/22/17 04:00
[2017-02-22] MEDS: ENOXAPARIN 30 MG/0.3 ML SYRINGE SUBCUT SCH (13:09)
--- NOTE | 2017-02-22 13:59 | Nephrology Progress Note ---
Nephrology - PN: Subj Interval history: Patient is seen on hemodialysis, he is requiring Levophed for pressure support therapy, will continue his hemodialysis unchanged. Physical exam general the patient is chronically ill-appearing, he is intubated , his lungs reveal rhonchorous sounds throughout Assessment/plan 1. End-stage renal disease-we will continue hemodialysis support 2. Diabetes mellitus 3. Pulmonary hypertension 4. A. fib Exam (PN)-Nephrology - Vital Signs Vital signs: Period Temp Pulse Resp BP Sys/Santana Pulse Ox Last 24 Hr 97.5 F-100.2 F 70-113 05-25 66-137/32-104 98-100 - Lab 02/22/17 04:00 02/22/17 04:00 Most recent lab results ABG pH 7.406 (7.35-7.45) 02/22/17 Unknown ABG pCO2 40.8 MM HG (35-48) 02/22/17 Unknown ABG pO2 203.0 MM HG (80-95) H 02/22/17 Unknown ABG HCO3 25.0 MMOL/L (20-26) 02/22/17 Unknown ABG O2 Saturation 99.4 % (95-100) 02/22/17 Unknown Calcium 8.5 MG/DL (8.5-10.1) 02/22/17 04:00 Magnesium 2.4 MG/DL (1.8-2.4) 02/20/17 03:07 Assessment and Plan (1) Abdominal pain Status: Acute Assessment and plan: Patient's abdominal pain seems to be improved, the patient states he ate some white dirt yesterday and thinks that this may have been the cause to his abdominal pain, CT scan of the abdomen did not seem to reveal any acute pathology to explain his pain. Current Visit: Yes (2) Atrial fibrillation with RVR Status: Acute Assessment and plan: Continue Cardizem for rate control Current Visit: Yes (3) Diabetes mellitus Status: Chronic Assessment and plan: Monitor with a sliding scale Current Visit: No Qualifiers: Diabetes mellitus type: type 2 Diabetes mellitus complication status: with hyperosmolarity (4) End stage renal disease on dialysis Status: Chronic Assessment and plan: We will plan on hemodialysis today. Current Visit: No
[2017-02-22] MEDS: IRON SUCROSE 100 MG/5 ML VIAL IV SCH (17:43)
[2017-02-23] MEDS: CLINDAMYCIN INJ 600 MG in PREMIX 1 EACH IV SCH ×3 (01:12→16:27)
[2017-02-23 05:14] LABS: Basophils % 0.1 % (0.0-0.8); Eosinophils # 0.1 10*3/uL (0.0-0.87); Eosinophils % 0.5 % (0.00-10.9); Hematocrit 37.8 VOL% (42.0-52.0); Hemoglobin 12.7 GM/DL (14.0-18.0); Immature Granulocytes % 0.5 %; Immature Granulocytes Absolute 0.08 #; Lymphocytes # 0.8 10*3/uL (1.4-4.0); Lymphocytes % 5.3 % (21.2-54.2); Mean Corpuscular HGB Conc 33.6 GM/DL (32-36); Mean Corpuscular Hemoglobin 29 PG (27-34); Mean Corpuscular Volume 86.5 FL (87-102); Mean Platelet Volume 10.3 FL (9.6-12.0); Monocytes % 6.9 % (1.7-12.7); NRBC # 0.03 10*3/uL; Neutrophils # 12.6 10*3/uL (1.4-7.4); Neutrophils % 86.7 % (38.7-73.9); Platelet Count 137 T/CUMM (130-400); Red Blood Count 4.37 MC/CUMM (3.8-5.5); Red Cell Distribution Width 16.8 % (9.3-17.3); White Blood Count 14.6 T/CUMM (4-12)
[2017-02-23 05:32] LABS: Calcium 8.1 MG/DL (8.5-10.1); Magnesium 2.1 MG/DL (1.8-2.4); Osmolality,Calculated 274.8 MOS/KG (273-304); Potassium 4.1 MMOL/L (3.5-5.1)
--- NOTE | 2017-02-23 06:36 | Nephrology Progress Note ---
Nephrology - PN: Subj Interval history: Patient remains intubated and sedate. Physical exam general patient is chronically ill-appearing, heart is regular rate and rhythm, he has no pitting edema, lungs are clear to auscultation anteriorly, abdomen is soft with positive bowel sounds Assessment/plan 1. End-stage renal disease-patient was nauseous yesterday we will plan on dialyzing him Wednesday 2. Atrial fibrillation 3. Diabetes mellitus-Start the patient on tube feeds 4. Altered mental status-this patient has some underlying dementia and is being further stressed by his acute illness Exam (PN)-Nephrology - Vital Signs Vital signs: Period Temp Pulse Resp BP Sys/Santana Pulse Ox Last 24 Hr 97.5 F-98.4 F 60-113 11-31 71-136/37-104 92-100 - Lab 02/23/17 04:00 02/23/17 04:00 Most recent lab results ABG pH 7.406 (7.35-7.45) 02/22/17 Unknown ABG pCO2 40.8 MM HG (35-48) 02/22/17 Unknown ABG pO2 203.0 MM HG (80-95) H 02/22/17 Unknown ABG HCO3 25.0 MMOL/L (20-26) 02/22/17 Unknown ABG O2 Saturation 99.4 % (95-100) 02/22/17 Unknown Calcium 8.1 MG/DL (8.5-10.1) L 02/23/17 04:00 Magnesium 2.1 MG/DL (1.8-2.4) 02/23/17 04:00 Assessment and Plan (1) Abdominal pain Status: Acute Assessment and plan: Patient's abdominal pain seems to be improved, the patient states he ate some white dirt yesterday and thinks that this may have been the cause to his abdominal pain, CT scan of the abdomen did not seem to reveal any acute pathology to explain his pain. Current Visit: Yes (2) Atrial fibrillation with RVR Status: Acute Assessment and plan: Continue Cardizem for rate control Current Visit: Yes (3) Diabetes mellitus Status: Chronic Assessment and plan: Monitor with a sliding scale Current Visit: No Qualifiers: Diabetes mellitus type: type 2 Diabetes mellitus complication status: with hyperosmolarity (4) End stage renal disease on dialysis Status: Chronic Assessment and plan: We will plan on hemodialysis today. Current Visit: No
[2017-02-23] MEDS: LEVOTHYROXINE 100 MCG VIAL IV SCH (06:41)
[2017-02-23] MEDS: MIDAZOLAM 100 MG in SODIUM CHLORIDE 0.9% 80 ML IV SCH ×2 (06:50→09:16)
--- NOTE | 2017-02-23 07:18 | Pulmonology Progress Note ---
Pulmonary - PN: Subj Interval history: 71-year-old black male is a dialysis patient. He had acute decreased level of consciousness and respiratory distress yesterday and was intubated. It is suspected that he has aspirated. Plans are for bronchoscopy this morning. Presently on the ventilator and his ABGs look okay. 02/23/2017 patient remains poorly responsive. ABGs look good. Cultures are pending from bronchoscopy. Continuing broad-spectrum antibiotics for suspected aspiration. Exam (Progress Note) - Constitutional Vitals: Period Temp Pulse Resp BP Sys/Santana Pulse Ox Last 24 Hr 97.5 F-98.4 F 60-113 11-31 71-136/37-104 92-100 Exam: Patient does recoil when I tried to check his pupillary reflexes which are positive. I cannot get him to respond to verbal stimuli. He will flinch a little on painful stimulus. Vital signs normal. Pupils do react, the left one a little better than the right one in the left one is a little larger than the right lung. He has arcus senilis. Orotracheal tube is in place. Neck is supple. Chest reveals some rhonchi bilaterally equal breath sounds. Heart normal rate rhythm no murmurs. Abdomen soft nontender. Extremities he has 1+ peripheral edema. Results - Labs CBC & BMP: 02/23/17 04:00 02/23/17 04:00 Lab Results: I have reviewed the past 24 hour labs - Diagnostic Findings Procedure: Chest x-ray: image reviewed by me (ET tube good position. Lungs are fairly clear. Mild left pleural reaction. Pacemaker over left upper chest.) Assessment and Plan (1) Acute respiratory failure Status: Acute Assessment and plan: Patient now on mechanical ventilation. There is a question about aspiration. I will plan bronchoscopy in the morning. Adjust ventilator and wean as parameters allow. 02/22/2017 ABGs look good. He has a good bit of purulent looking secretions. Plan bronchoscopy for cultures. Continuing empiric antibiotics. 02/23/2017 PO2 is 203. Reduce FiO2. Mental status not good. Will take a while to wean him. May end up needing a tracheostomy. Current Visit: Yes (2) End stage renal disease on dialysis Status: Chronic Assessment and plan: Continuing with regular dialysis. 02/23/2017 continuing with dialysis for acute on chronic renal failure. Current Visit: No (3) GI bleed Status: Chronic Assessment and plan: Prevents anticoagulation. 02/22/2017 defer to GI Current Visit: No Qualifiers: GI bleed type/associated pathology: unspecified gastrointestinal hemorrhage type Qualified Code(s): K92.2 - Gastrointestinal hemorrhage, unspecified (4) IDDM (insulin dependent diabetes mellitus) Status: Chronic Assessment and plan: Good control on sliding scale. 02/22/2017 blood sugars are fairly well controlled 02/23/2017 glucoses very well controlled Current Visit: No (5) Status post coronary artery bypass grafting Status: Chronic Assessment and plan: Has normal LV ejection fraction but severe MR. 02/22/2017 there may be an element of congestive failure related to his MR 02/23/2017 no bharat heart failure Current Visit: No (6) Tachy-fuentes syndrome Status: Chronic Assessment and plan: Has pacemaker Current Visit: No (7) Severe mitral regurgitation Status: Acute Assessment and plan: This is being managed medically. Defer to cardiology. Not a good candidate for mitral valve replacement. Current Visit: Yes
--- NOTE | 2017-02-23 08:34 | XRay Report ---
Portable chest Date: 02/23/2017 Clinical history: Pneumonia Comparison: 02/22/2017 Technique: Portable AP sitting chest Findings: The heart is borderline in size with prior median sternotomy and left subclavian ventricular permanent pacemaker. The supportive devices are stable in position with minimally decreased parenchymal findings with smaller pleural effusions. Impression: Supportive devices remain in satisfactory position. Status post median sternotomy with left subclavian ventricular pacemaker. Improved pulmonary edema/infiltration with smaller pleural effusions. PROCEDURE INTERPRETED AT [facility] DEPARTMENT OF RADIOLOGY Final Report Signed by: Dr. Brandy Ambrose
[2017-02-23] MEDS: INSULIN LISPRO 100 UNIT/ML SUBCUT SCH ×4 (09:11→21:34)
[2017-02-23] MEDS: METOCLOPRAMIDE 5 MG TABLET PO SCH ×3 (09:11→17:36)
[2017-02-23] MEDS: NOREPINEPHRINE 16 MG in SODIUM CHLORIDE 0.9% 242 ML IV SCH ×2 (09:11→23:27)
[2017-02-23] MEDS: CALCIUM ACETATE 667 MG CAPSULE PO SCH ×3 (09:11→17:36)
[2017-02-23] MEDS: DILTIAZEM 60 MG TABLET PO SCH (09:12)
[2017-02-23] MEDS: LACTULOSE 20 GM/30 ML UDCUP PO SCH ×2 (09:12→21:15)
[2017-02-23] MEDS: MULTIVITAMIN (BEROCCA) TABLET PO SCH (09:12)
[2017-02-23] MEDS: PHENYLEPHRINE DRIP 40 MG/250 ML PREMIX IV SCH ×2 (09:12→20:30)
[2017-02-23] MEDS: ASPIRIN EC 81 MG TABLET PO SCH (09:12)
[2017-02-23] MEDS: CARVEDILOL 12.5 MG TABLET PO SCH ×2 (09:15→21:15)
[2017-02-23] MEDS: prednisoLONE ACETATE 1% OPH SUSP 5 ML BOTTLE BOTH EYES SCH ×2 (09:15→21:15)
[2017-02-23] MEDS: NYSTATIN 500,000 UNIT/5 ML UDCUP SWISH/SWAL SCH ×4 (09:15→21:15)
[2017-02-23] MEDS: PROPOFOL 1,000 MG/100 ML BOTTLE IV SCH (09:16)
[2017-02-23] MEDS: ALLOPURINOL 300 MG TABLET PO SCH (09:16)
--- NOTE | 2017-02-23 12:42 | Hospitalist Progress Note ---
Assessment and Plan (1) ESRD (end stage renal disease) on dialysis Status: Chronic Assessment and plan: Nephrology managing Current Visit: No (2) Atrial fibrillation Status: Chronic Current Visit: No Qualifiers: Atrial fibrillation type: persistent Qualified Code(s): I48.1 - Persistent atrial fibrillation (3) Aspiration into airway Status: Acute Assessment and plan: Patient with episode of aspiration requiring intubation On clindamycin Current Visit: Yes (4) Respiratory failure Status: Acute Assessment and plan: Secondary to aspiration Pulmonary assisting to vent management Bronch 02/22 with diffuse erythema and retained secretions Current Visit: Yes Hospitalist: Subjective Interval history: No acute events overnight. Patient is now off sedation and remains unresponsive. He is also noted to have leukocytosis today, although he is afebrile. Discussed his current situation with his , Brandy, via telephone. Discussed his current poor prognosis, possible extended vent wean and code status. She reports that she is coming to the hospital today and will talk to me further at that time. Tube feeds started today Exam - Constitutional Vitals: Period Temp Pulse Resp BP Sys/Santana Pulse Ox Last 24 Hr 97.4 F-98.4 F 60-87 11-31 71-123/37-89 92-100 General appearance: normal weight, other - Head Head exam: Present: normocephalic, atraumatic - Eye Eye exam: Absent: conjunctival injection, scleral icterus - ENT ENT exam: Present: normal exam - Neck Neck exam: Present: normal inspection - Respiratory Respiratory exam: Absent: rhonchi, wheezes - Cardiovascular Cardiovascular exam: Present: regular rate and rhythm - GI/Abdominal GI/Abdominal exam: Present: normal bowel sounds, soft. Absent: tenderness, rebound - Extremities Exam Extremities exam: Present: normal inspection - Back Exam Back exam: Present: normal inspection - Neurological Exam Neurological exam: Present: alert, oriented X3 - Psychiatric Psychiatric exam: Present: normal affect, normal mood - Skin Skin exam: Present: warm, intact Results - Labs CBC & BMP: 02/23/17 04:00 02/23/17 04:00
[2017-02-23] MEDS: ENOXAPARIN 30 MG/0.3 ML SYRINGE SUBCUT SCH (12:44)
[2017-02-23] MEDS: FAMOTIDINE 20 MG/2 ML VIAL IV SCH (13:09)
[2017-02-24] MEDS: CLINDAMYCIN INJ 600 MG in PREMIX 1 EACH IV SCH ×3 (01:00→16:28)
[2017-02-24] MEDS: PHENYLEPHRINE DRIP 40 MG/250 ML PREMIX IV SCH ×3 (01:39→09:01)
[2017-02-24 05:16] LABS: Basophils % 0.2 % (0.0-0.8); Eosinophils # 0.1 10*3/uL (0.0-0.87); Eosinophils % 0.4 % (0.00-10.9); Hematocrit 38.3 VOL% (42.0-52.0); Hemoglobin 12.9 GM/DL (14.0-18.0); Immature Granulocytes % 0.8 %; Immature Granulocytes Absolute 0.13 #; Lymphocytes # 0.6 10*3/uL (1.4-4.0); Lymphocytes % 3.4 % (21.2-54.2); Mean Corpuscular HGB Conc 33.7 GM/DL (32-36); Mean Corpuscular Hemoglobin 29 PG (27-34); Mean Corpuscular Volume 86.1 FL (87-102); Mean Platelet Volume 11.2 FL (9.6-12.0); Monocytes % 5.9 % (1.7-12.7); Neutrophils # 14.8 10*3/uL (1.4-7.4); Neutrophils % 89.3 % (38.7-73.9); Platelet Count 155 T/CUMM (130-400); Red Blood Count 4.45 MC/CUMM (3.8-5.5); Red Cell Distribution Width 16.5 % (9.3-17.3); White Blood Count 16.6 T/CUMM (4-12)
[2017-02-24 05:40] LABS: Giant Platelets Few; Hypochromasia 1+; Lymphocytes 1 % (20-55); Microcytosis Slight; Platelet Estimate Normal; Segmented Neutrophils 94 % (50-85); Total Cells Counted 100
[2017-02-24 05:53] LABS: Calcium 8.3 MG/DL (8.5-10.1); Magnesium 2.1 MG/DL (1.8-2.4); Osmolality,Calculated 278.7 MOS/KG (273-304); Potassium 3.8 MMOL/L (3.5-5.1)
[2017-02-24] MEDS ORDERED: PHENYLEPHRINE DRIP 40 MG/250 ML PREMIX IV ONE (05:57)
[2017-02-24 06:04] LABS: Phosphorous 2.3 MG/DL (2.5-4.9); Prealbumin 6.2 MG/DL (20-40)
[2017-02-24] MEDS ORDERED: NOREPINEPHRINE 4 MG/4 ML VIAL IV ONE ×2 (06:16→06:17)
[2017-02-24] MEDS: LEVOTHYROXINE 100 MCG VIAL IV SCH (06:24)
--- NOTE | 2017-02-24 07:10 | Nephrology Progress Note ---
Nephrology - PN: Subj Interval history: Patient is intubated and sedate, he is requiring Yogesh-Synephrine and Levophed at high doses to maintain an adequate blood pressure Physical exam general the patient is chronically ill-appearing, heart is irregularly irregular he has no pitting edema, lungs are clear to auscultation anteriorly, abdomen is soft with positive bowel sounds Assessment/plan 1. End-stage renal disease-patient is due for dialysis today, and his present situation this may prove quite difficult to administer but we will try and support him with pressors as we dialyze him. 2. A. fib continue present medications 3. Diabetes mellitus 4. Cardiomyopathy-we will continue pressor support 5. Secondary hyperparathyroidism-patient's phosphorus is around 2.4, and decreased his PhosLo I spoke to his daughter this morning and updated her on his poor overall status , she understands and appreciates our efforts to keep him going, she informed me that the family still wants to keep him a full code, we did discuss dialysis and the stress it may in part on him and with his worsening condition were going to hold his dialysis today and make an attempt at dialysis tomorrow. Exam (PN)-Nephrology - Vital Signs Vital signs: Period Temp Pulse Resp BP Sys/Santana Pulse Ox Last 24 Hr 97.4 F-99.4 F 62-122 11-30 61-147/24-115 90-100 - Lab 02/24/17 04:00 02/24/17 04:00 Most recent lab results ABG pH 7.406 (7.35-7.45) 02/22/17 Unknown ABG pCO2 40.8 MM HG (35-48) 02/22/17 Unknown ABG pO2 203.0 MM HG (80-95) H 02/22/17 Unknown ABG HCO3 25.0 MMOL/L (20-26) 02/22/17 Unknown ABG O2 Saturation 99.4 % (95-100) 02/22/17 Unknown Calcium 8.3 MG/DL (8.5-10.1) L 02/24/17 04:00 Phosphorus 2.3 MG/DL (2.5-4.9) L 02/24/17 04:00 Magnesium 2.1 MG/DL (1.8-2.4) 02/24/17 04:00 Assessment and Plan (1) Abdominal pain Status: Acute Assessment and plan: Patient's abdominal pain seems to be improved, the patient states he ate some white dirt yesterday and thinks that this may have been the cause to his abdominal pain, CT scan of the abdomen did not seem to reveal any acute pathology to explain his pain. Current Visit: Yes (2) Atrial fibrillation with RVR Status: Acute Assessment and plan: Continue Cardizem for rate control Current Visit: Yes (3) Diabetes mellitus Status: Chronic Assessment and plan: Monitor with a sliding scale Current Visit: No Qualifiers: Diabetes mellitus type: type 2 Diabetes mellitus complication status: with hyperosmolarity (4) End stage renal disease on dialysis Status: Chronic Assessment and plan: We will plan on hemodialysis today. Current Visit: No
--- NOTE | 2017-02-24 07:21 | Pulmonology Progress Note ---
Pulmonary - PN: Subj Interval history: 71-year-old black male is a dialysis patient. He had acute decreased level of consciousness and respiratory distress yesterday and was intubated. It is suspected that he has aspirated. Plans are for bronchoscopy this morning. Presently on the ventilator and his ABGs look okay. 02/23/2017 patient remains poorly responsive. ABGs look good. Cultures are pending from bronchoscopy. Continuing broad-spectrum antibiotics for suspected aspiration. 02/24/2017 patient's oxygen saturation dropped during the night. He is now on 100% oxygen. ABGs are pending. His chest x-ray looks okay. His ABGs are in the ARDS range. Likely due to aspiration. He is growing 2 organisms from the bronchial washings. Hopefully he is covered with current antibiotics but we do not have the final sensitivities as yet. Currently still has thick secretions. We are adding Pulmozyme. Exam (Progress Note) - Constitutional Vitals: Period Temp Pulse Resp BP Sys/Santana Pulse Ox Last 24 Hr 97.4 F-99.4 F 62-122 11-30 61-147/24-115 90-100 Exam: Patient does recoil when I tried to check his pupillary reflexes which are positive. I cannot get him to respond to verbal stimuli. He will flinch a little on painful stimulus. Vital signs normal. Pupils do react, the left one a little better than the right one in the left one is a little larger than the right lung. He has arcus senilis. Orotracheal tube is in place. Neck is supple. Chest reveals some rhonchi bilaterally equal breath sounds. Heart normal rate rhythm no murmurs. Abdomen soft nontender. Extremities he has 1+ peripheral edema. Little change from yesterday Results - Labs CBC & BMP: 02/24/17 04:00 02/24/17 04:00 Lab Results: I have reviewed the past 24 hour labs - Diagnostic Findings Procedure: Chest x-ray: image reviewed by me (Lungs look fairly clear. Small blunting of pleural angles) Assessment and Plan (1) Acute respiratory failure Status: Acute Assessment and plan: Patient now on mechanical ventilation. There is a question about aspiration. I will plan bronchoscopy in the morning. Adjust ventilator and wean as parameters allow. 02/22/2017 ABGs look good. He has a good bit of purulent looking secretions. Plan bronchoscopy for cultures. Continuing empiric antibiotics. 02/23/2017 PO2 is 203. Reduce FiO2. Mental status not good. Will take a while to wean him. May end up needing a tracheostomy. 02/24/2017 this is likely due to aspiration. His oxygen saturation worsened overnight. ABGs are pending this morning. Current Visit: Yes (2) End stage renal disease on dialysis Status: Chronic Assessment and plan: Continuing with regular dialysis. 02/23/2017 continuing with dialysis for acute on chronic renal failure. 02/24/2017 continuing with dialysis schedule. Current Visit: No (3) GI bleed Status: Chronic Assessment and plan: Prevents anticoagulation. 02/22/2017 defer to GI 02/24/2017 hematocrit stable at 38 Current Visit: No Qualifiers: GI bleed type/associated pathology: unspecified gastrointestinal hemorrhage type Qualified Code(s): K92.2 - Gastrointestinal hemorrhage, unspecified (4) IDDM (insulin dependent diabetes mellitus) Status: Chronic Assessment and plan: Good control on sliding scale. 02/22/2017 blood sugars are fairly well controlled 02/23/2017 glucoses very well controlled 02/24/2017 glucoses remained well controlled. Current Visit: No (5) Status post coronary artery bypass grafting Status: Chronic Assessment and plan: Has normal LV ejection fraction but severe MR. 02/22/2017 there may be an element of congestive failure related to his MR 02/23/2017 no bharat heart failure Current Visit: No (6) Tachy-fuentes syndrome Status: Chronic Assessment and plan: Has pacemaker Current Visit: No (7) Severe mitral regurgitation Status: Acute Assessment and plan: This is being managed medically. Defer to cardiology. Not a good candidate for mitral valve replacement. Current Visit: Yes
[2017-02-24 07:34] LABS: ABG Base Excess 0.9 MMOL/L (-2.5-2.5); ABG HCO3 25.3 MMOL/L (20-26); ABG PH 7.435 (7.35-7.45); ABG TCO2 21.5 MMOL/L (23-27)
--- NOTE | 2017-02-24 08:45 | XRay Report ---
Portable chest Date: 02/24/2017 Clinical history: Pneumonia Comparison: 02/23/2017 Technique: Portable AP sitting chest Findings: The heart is normal in size with prior median sternotomy with left subclavian ventricular permanent pacemaker. The supportive devices are stable in position stable parenchymal findings in the lungs with small pleural effusions. Stable mediastinum and osseous structures. Impression: No significant change in the appearance of the chest were compared to previous exam. PROCEDURE INTERPRETED AT [facility] DEPARTMENT OF RADIOLOGY Final Report Signed by: Dr. Brandy Ambrose
[2017-02-24] MEDS: PHENYLEPHRINE INJ 160 MG in SODIUM CHLORIDE 0.9% 234 ML IV SCH ×2 (08:59→16:59)
[2017-02-24 09:00] LABS: ABG HCO3 24.5 MMOL/L (20-26); ABG Oxygen Saturation 99.4 % (95-100); ABG PCO2 37.5 MM HG (35-48); ABG PH 7.418 (7.35-7.45)
[2017-02-24] MEDS: DILTIAZEM 60 MG TABLET PO SCH (09:38)
[2017-02-24] MEDS: ASPIRIN EC 81 MG TABLET PO SCH (09:38)
[2017-02-24] MEDS: MULTIVITAMIN (BEROCCA) TABLET PO SCH (09:38)
[2017-02-24] MEDS: CALCIUM ACETATE 667 MG CAPSULE PO SCH ×3 (09:38→16:20)
[2017-02-24] MEDS: LEVOFLOXACIN INJ 250 MG in PREMIX 1 EACH IV SCH (09:45)
[2017-02-24] MEDS: prednisoLONE ACETATE 1% OPH SUSP 5 ML BOTTLE BOTH EYES SCH ×2 (09:48→21:53)
[2017-02-24] MEDS: CARVEDILOL 12.5 MG TABLET PO SCH ×2 (09:50→21:54)
[2017-02-24] MEDS: NOREPINEPHRINE 16 MG in SODIUM CHLORIDE 0.9% 242 ML IV SCH ×3 (10:02→17:10)
[2017-02-24] MEDS: METOCLOPRAMIDE 5 MG TABLET PO SCH ×3 (10:36→16:20)
[2017-02-24] MEDS: LACTULOSE 20 GM/30 ML UDCUP PO SCH ×2 (10:36→21:53)
[2017-02-24] MEDS: PROPOFOL 1,000 MG/100 ML BOTTLE IV SCH (10:39)
[2017-02-24] MEDS: DOPamine 800 MG/250 ML PREMIX IV SCH (10:41)
[2017-02-24] MEDS: NYSTATIN 500,000 UNIT/5 ML UDCUP SWISH/SWAL SCH ×4 (11:16→21:53)
[2017-02-24] MEDS: ALLOPURINOL 300 MG TABLET PO SCH (11:17)
--- NOTE | 2017-02-24 11:22 | Hospitalist Progress Note ---
Assessment and Plan (1) ESRD (end stage renal disease) on dialysis Status: Chronic Assessment and plan: Nephrology managing Holding on HD currently due to poor status Current Visit: No (2) Atrial fibrillation Status: Chronic Current Visit: No Qualifiers: Atrial fibrillation type: persistent Qualified Code(s): I48.1 - Persistent atrial fibrillation (3) Aspiration into airway Status: Acute Assessment and plan: Patient with episode of aspiration requiring intubation On clindamycin Current Visit: Yes (4) Respiratory failure Status: Acute Assessment and plan: Secondary to aspiration Pulmonary assisting to vent management Bronch 02/22 with diffuse erythema and retained secretions Current Visit: Yes (5) Septic shock Status: Acute Assessment and plan: Treating for pneumonia Rising leukocytosis Febrile to 100.9 this morning, will repeat blood cultures Bronchial washings growing Klebsiella and MRSA, will add vancomycin, patient with ESRD will give a one time dose and get pharmacy to assist with dosing Maxed on 2 pressors Current Visit: Yes Hospitalist: Subjective Interval history: Long discussion with patient's and daughter yesterday about his overall poor prognosis, especially given the need for two pressors. Patient's reiterated that she would like for patient to remain a full code. She reports that the family will continue to discuss this. This morning he is maxed on two pressors. He will not follow commands or engage in any way. He does respond to pain. Exam - Constitutional Vitals: Period Temp Pulse Resp BP Sys/Santana Pulse Ox Last 24 Hr 97.4 F-100.9 F 64-122 11-30 52-147/24-115 90-100 General appearance: over weight, other (unresponsive, et tube in place) - Head Head exam: Present: normocephalic, atraumatic - Eye Eye exam: Present: EOMI - ENT ENT exam: Present: normal exam - Neck Neck exam: Present: normal inspection - Respiratory Respiratory exam: Present: clear to auscultation bilaterally. Absent: wheezes - Cardiovascular Cardiovascular exam: Present: regular rate and rhythm - GI/Abdominal GI/Abdominal exam: Present: normal bowel sounds, soft. Absent: tenderness, rebound - Extremities Exam Extremities exam: Present: normal inspection - Back Exam Back exam: Present: normal inspection - Neurological Exam Neurological exam: Present: other (unresponsive) - Psychiatric Psychiatric exam: Present: normal affect, normal mood - Skin Skin exam: Present: warm, intact Results - Labs CBC & BMP: 02/24/17 04:00 02/24/17 04:00
[2017-02-24] MEDS: FAMOTIDINE 20 MG/2 ML VIAL IV SCH (11:24)
[2017-02-24] MEDS: ENOXAPARIN 30 MG/0.3 ML SYRINGE SUBCUT SCH (12:05)
[2017-02-24] MEDS ORDERED: VANCOMYCIN INJ 1,250 MG in SODIUM CHLORIDE 0.9% 250 ML IV PRN (12:06)
[2017-02-24] MEDS: INSULIN REGULAR 100 UNIT/ML SUBCUT SCH ×2 (12:08→19:11)
[2017-02-24] MEDS ORDERED: VANCOMYCIN INJ 1,250 MG in SODIUM CHLORIDE 0.9% 250 ML IV ONE (12:30)
[2017-02-25] MEDS: INSULIN REGULAR 100 UNIT/ML SUBCUT SCH ×4 (00:16→18:00)
[2017-02-25] MEDS: CLINDAMYCIN INJ 600 MG in PREMIX 1 EACH IV SCH ×3 (00:16→16:48)
[2017-02-25] MEDS: HALOPERIDOL 5 MG/ML AMP IM PRN (00:48)
[2017-02-25] MEDS: NOREPINEPHRINE 16 MG in SODIUM CHLORIDE 0.9% 242 ML IV SCH ×4 (01:03→21:51)
[2017-02-25] MEDS: PHENYLEPHRINE INJ 160 MG in SODIUM CHLORIDE 0.9% 234 ML IV SCH ×3 (01:05→14:51)
[2017-02-25] MEDS: DORNASE ALFA 2.5 MG/2.5 ML VIAL RESP TX SCH ×3 (03:02→20:04)
[2017-02-25 04:20] LABS: ABG Base Excess -0.7 MMOL/L (-2.5-2.5); ABG HCO3 23.8 MMOL/L (20-26); ABG Oxygen Saturation 99.3 % (95-100); ABG PCO2 41.5 MM HG (35-48); ABG PH 7.378 (7.35-7.45); ABG TCO2 21.6 MMOL/L (23-27); Allen Test Positive; Pt O2 Delivery Device Ventilator
[2017-02-25 06:13] LABS: Basophils % 0.2 % (0.0-0.8); Eosinophils # 0.2 10*3/uL (0.0-0.87); Eosinophils % 1.2 % (0.00-10.9); Hematocrit 35.8 VOL% (42.0-52.0); Hemoglobin 12.2 GM/DL (14.0-18.0); Immature Granulocytes % 0.7 %; Lymphocytes # 0.9 10*3/uL (1.4-4.0); Lymphocytes % 6.3 % (21.2-54.2); Mean Corpuscular HGB Conc 34.1 GM/DL (32-36); Mean Corpuscular Hemoglobin 29 PG (27-34); Mean Corpuscular Volume 85.6 FL (87-102); Monocytes # 1.5 10*3/uL (0.11-0.8); Monocytes % 10.3 % (1.7-12.7); Neutrophils # 11.9 10*3/uL (1.4-7.4); Neutrophils % 81.3 % (38.7-73.9); Platelet Count 178 T/CUMM (130-400); Red Blood Count 4.18 MC/CUMM (3.8-5.5); Red Cell Distribution Width 16.3 % (9.3-17.3); White Blood Count 14.6 T/CUMM (4-12)
[2017-02-25] MEDS: LEVOTHYROXINE 100 MCG VIAL IV SCH (06:32)
[2017-02-25 06:52] LABS: Bilirubin,Direct 0.61 MG/DL (0.0-0.20); Bilirubin,Total 1.6 MG/DL (0.2-1.0); Calcium 8.5 MG/DL (8.5-10.1); Magnesium 2.3 MG/DL (1.8-2.4); Osmolality,Calculated 286.7 MOS/KG (273-304); Potassium 3.8 MMOL/L (3.5-5.1); Total Protein 6.4 G/DL (6.4-8.3)
--- NOTE | 2017-02-25 07:16 | Pulmonology Progress Note ---
Pulmonary - PN: Subj Interval history: 71-year-old black male is a dialysis patient. He had acute decreased level of consciousness and respiratory distress yesterday and was intubated. It is suspected that he has aspirated. Plans are for bronchoscopy this morning. Presently on the ventilator and his ABGs look okay. 02/23/2017 patient remains poorly responsive. ABGs look good. Cultures are pending from bronchoscopy. Continuing broad-spectrum antibiotics for suspected aspiration. 02/24/2017 patient's oxygen saturation dropped during the night. He is now on 100% oxygen. ABGs are pending. His chest x-ray looks okay. His ABGs are in the ARDS range. Likely due to aspiration. He is growing 2 organisms from the bronchial washings. Hopefully he is covered with current antibiotics but we do not have the final sensitivities as yet. Currently still has thick secretions. We are adding Pulmozyme. 02/25/2017 ABGs are looking much better. Turns out that the patient's oxygen saturation did not really drop yesterday. It was a bad reading on her oxygen saturation. His PO2 was in the 400s on 100%. At present his PO2 is around 200 on 50%. Chest x-ray is stable. Patient's blood pressure is in the 140s. He is on 2 pressors. I think we can likely stop 1 of the 2. Patient is to get dialysis later today. Should be ready for transfer to [facility] today. Exam (Progress Note) - Constitutional Vitals: Period Temp Pulse Resp BP Sys/Santana Pulse Ox Last 24 Hr 97.6 F-98.8 F 64-114 10-27 52-132/ 96-100 Exam: Patient does recoil when I tried to check his pupillary reflexes which are positive. I cannot get him to respond to verbal stimuli. He will flinch a little on painful stimulus. Vital signs normal. Systolic blood pressure in the 140s, on both Yogesh-Synephrine and Levophed. Pupils do react, the left one a little better than the right one in the left one is a little larger than the right lung. He has arcus senilis. Orotracheal tube is in place. Neck is supple. Chest reveals some rhonchi bilaterally equal breath sounds. Heart normal rate rhythm no murmurs. Abdomen soft nontender. Extremities he has 1+ peripheral edema. Results - Labs CBC & BMP: 02/25/17 05:10 02/25/17 05:10 Lab Results: I have reviewed the past 24 hour labs - Diagnostic Findings Procedure: Chest x-ray: image reviewed by me (ET tube in good position. Blunted left pleural angle. Sternal wires from previous heart surgery. Little change from yesterday's film) Assessment and Plan (1) Acute respiratory failure Status: Acute Assessment and plan: Patient now on mechanical ventilation. There is a question about aspiration. I will plan bronchoscopy in the morning. Adjust ventilator and wean as parameters allow. 02/22/2017 ABGs look good. He has a good bit of purulent looking secretions. Plan bronchoscopy for cultures. Continuing empiric antibiotics. 02/23/2017 PO2 is 203. Reduce FiO2. Mental status not good. Will take a while to wean him. May end up needing a tracheostomy. 02/24/2017 this is likely due to aspiration. His oxygen saturation worsened overnight. ABGs are pending this morning. 02/25/2017 ABGs much improved. Should be where we can wean him. He is tolerating prolonged CPAP. Mental status and hypotension on the remaining barriers. Current Visit: Yes (2) End stage renal disease on dialysis Status: Chronic Assessment and plan: Continuing with regular dialysis. 02/23/2017 continuing with dialysis for acute on chronic renal failure. 02/24/2017 continuing with dialysis schedule. 02/25/2017 due for dialysis today. Current Visit: No (3) GI bleed Status: Chronic Assessment and plan: Prevents anticoagulation. 02/22/2017 defer to GI 02/24/2017 hematocrit stable at 38 02/25/2017 hematocrit is 36 today Current Visit: No Qualifiers: GI bleed type/associated pathology: unspecified gastrointestinal hemorrhage type Qualified Code(s): K92.2 - Gastrointestinal hemorrhage, unspecified (4) IDDM (insulin dependent diabetes mellitus) Status: Chronic Assessment and plan: Good control on sliding scale. 02/22/2017 blood sugars are fairly well controlled 02/23/2017 glucoses very well controlled 02/24/2017 glucoses remained well controlled. 02/25/2017 glucoses are well controlled. Current Visit: No (5) Status post coronary artery bypass grafting Status: Chronic Assessment and plan: Has normal LV ejection fraction but severe MR. 02/22/2017 there may be an element of congestive failure related to his MR 02/23/2017 no bharat heart failure Current Visit: No (6) Tachy-fuentes syndrome Status: Chronic Assessment and plan: Has pacemaker Current Visit: No (7) Severe mitral regurgitation Status: Acute Assessment and plan: This is being managed medically. Defer to cardiology. Not a good candidate for mitral valve replacement. 02/25/2017 does not appear to be in heart failure Current Visit: Yes
--- NOTE | 2017-02-25 07:59 | XRay Report ---
Portable chest Date: 02/25/2017 Clinical history: Pneumonia Comparison: 02/24/2017 Technique: Portable AP sitting chest Findings: The heart is borderline in size with prior median sternotomy. The supportive devices are stable in position with left subclavian ventricular permanent pacemaker. Minimally progressive diffuse parenchymal findings in the right lung with more stable findings in the left lung. Small pleural effusions. Stable mediastinum and osseous structures. Impression: Minimally progressive edema/pneumonitis in the right lung. Otherwise the chest appears fairly stable in appearance. PROCEDURE INTERPRETED AT [facility] DEPARTMENT OF RADIOLOGY Final Report Signed by: Dr. Brandy Ambrose
[2017-02-25] MEDS: MULTIVITAMIN (BEROCCA) TABLET PO SCH (09:08)
[2017-02-25] MEDS: DILTIAZEM 60 MG TABLET PO SCH (09:08)
[2017-02-25] MEDS: ASPIRIN EC 81 MG TABLET PO SCH (09:08)
[2017-02-25] MEDS: ALLOPURINOL 300 MG TABLET PO SCH (09:08)
[2017-02-25] MEDS: LACTULOSE 20 GM/30 ML UDCUP PO SCH ×2 (09:09→22:40)
[2017-02-25] MEDS: CALCIUM ACETATE 667 MG CAPSULE PO SCH ×3 (09:09→16:38)
[2017-02-25] MEDS: NYSTATIN 500,000 UNIT/5 ML UDCUP SWISH/SWAL SCH ×4 (09:09→22:41)
[2017-02-25] MEDS: METOCLOPRAMIDE 5 MG TABLET PO SCH ×3 (09:11→16:38)
[2017-02-25] MEDS: prednisoLONE ACETATE 1% OPH SUSP 5 ML BOTTLE BOTH EYES SCH ×2 (09:27→22:41)
[2017-02-25] MEDS: CARVEDILOL 12.5 MG TABLET PO SCH ×2 (09:27→22:41)
[2017-02-25] MEDS: DOPamine 800 MG/250 ML PREMIX IV SCH (09:28)
--- NOTE | 2017-02-25 10:28 | Nephrology Progress Note ---
Nephrology - PN: Subj Interval history: Patient is seen on hemodialysis, he is tolerating this well for now. He is on 2 pressor agents to maintain his blood pressure. He is volume up based on peripheral edema will try and gently ultrafilter him some today and increase his pressor medicines as needed. The patient is more awake and alert today he opens his eyes and seems to fix and follow. Assessment/plan 1. End-stage renal disease-continue hemodialysis 2. Aspiration pneumonia-continue antibiotics 3. Diabetes mellitus 4. Cardiac dysrhythmia management per cardiology Exam (PN)-Nephrology - Vital Signs Vital signs: Period Temp Pulse Resp BP Sys/Santana Pulse Ox Last 24 Hr 97.6 F-98.8 F 64-104 10-27 52-132/29-97 93-100 - Lab 02/25/17 05:10 02/25/17 05:10 Most recent lab results ABG pH 7.378 (7.35-7.45) 02/25/17 04:10 ABG pCO2 41.5 MM HG (35-48) 02/25/17 04:10 ABG pO2 171.0 MM HG (80-95) H 02/25/17 04:10 ABG HCO3 23.8 MMOL/L (20-26) 02/25/17 04:10 ABG O2 Saturation 99.3 % (95-100) 02/25/17 04:10 Calcium 8.5 MG/DL (8.5-10.1) 02/25/17 05:10 Phosphorus 2.3 MG/DL (2.5-4.9) L 02/24/17 04:00 Magnesium 2.3 MG/DL (1.8-2.4) 02/25/17 05:10 Assessment and Plan (1) Abdominal pain Status: Acute Assessment and plan: Patient's abdominal pain seems to be improved, the patient states he ate some white dirt yesterday and thinks that this may have been the cause to his abdominal pain, CT scan of the abdomen did not seem to reveal any acute pathology to explain his pain. Current Visit: Yes (2) Atrial fibrillation with RVR Status: Acute Assessment and plan: Continue Cardizem for rate control Current Visit: Yes (3) Diabetes mellitus Status: Chronic Assessment and plan: Monitor with a sliding scale Current Visit: No Qualifiers: Diabetes mellitus type: type 2 Diabetes mellitus complication status: with hyperosmolarity (4) End stage renal disease on dialysis Status: Chronic Assessment and plan: We will plan on hemodialysis today. Current Visit: No
[2017-02-25] MEDS: ENOXAPARIN 30 MG/0.3 ML SYRINGE SUBCUT SCH (12:08)
[2017-02-25] MEDS: FAMOTIDINE 20 MG/2 ML VIAL IV SCH (12:08)
--- NOTE | 2017-02-25 12:46 | Hospitalist Progress Note ---
Assessment and Plan (1) ESRD (end stage renal disease) on dialysis Status: Chronic Assessment and plan: Nephrology managing Plan is for HD today Current Visit: No (2) Atrial fibrillation Status: Chronic Current Visit: No Qualifiers: Atrial fibrillation type: persistent Qualified Code(s): I48.1 - Persistent atrial fibrillation (3) Aspiration into airway Status: Acute Assessment and plan: Patient with episode of aspiration requiring intubation On clindamycin Current Visit: Yes (4) Respiratory failure Status: Acute Assessment and plan: Secondary to aspiration Pulmonary assisting to vent management Bronch 02/22 with diffuse erythema and retained secretions Current Visit: Yes (5) Septic shock Status: Acute Assessment and plan: Treating for pneumonia Leukocytosis improving Afebrile for 24 hours Bronchial washings growing Klebsiella and MRSA, on vancomycin, pharmacy assisting on 2 pressors Current Visit: Yes Hospitalist: Subjective Interval history: No acute events overnight. Patient is much more awake and alert today. He is responding to his name and moving his fingers on command at times. Still requiring two pressors. Exam - Constitutional Vitals: Period Temp Pulse Resp BP Sys/Santana Pulse Ox Last 24 Hr 97.6 F-98.8 F 73-104 10-27 52-132/41-97 93-100 General appearance: over weight - Head Head exam: Present: normocephalic, atraumatic - Eye Eye exam: Present: EOMI Pupils: Present: CHRIS - ENT ENT exam: Present: normal exam - Neck Neck exam: Present: normal inspection - Respiratory Respiratory exam: Present: clear to auscultation bilaterally. Absent: rhonchi, wheezes - Cardiovascular Cardiovascular exam: Present: regular rate and rhythm - GI/Abdominal GI/Abdominal exam: Present: normal bowel sounds, soft. Absent: tenderness, rebound - Extremities Exam Extremities exam: Present: normal inspection - Back Exam Back exam: Present: normal inspection - Psychiatric Psychiatric exam: Absent: agitated, anxious - Skin Skin exam: Present: warm, intact Results - Labs CBC & BMP: 02/25/17 05:10 02/25/17 05:10
[2017-02-25] MEDS ORDERED: VANCOMYCIN INJ 750 MG in SODIUM CHLORIDE 0.9% 250 ML IV PRN (13:00)
[2017-02-25] MEDS ORDERED: VANCOMYCIN INJ 750 MG in SODIUM CHLORIDE 0.9% 250 ML IV ONE (16:00)
[2017-02-26] MEDS: INSULIN REGULAR 100 UNIT/ML SUBCUT SCH ×3 (02:19→11:37)
[2017-02-26] MEDS: CLINDAMYCIN INJ 600 MG in PREMIX 1 EACH IV SCH ×2 (02:40→09:59)
[2017-02-26 03:39] LABS: ABG Oxygen Saturation 95.2 % (95-100); ABG PCO2 42.9 MM HG (35-48); ABG PH 7.421 (7.35-7.45); ABG PO2 73.5 MM HG (80-95); ABG TCO2 23.7 MMOL/L (23-27)
[2017-02-26] MEDS ORDERED: NOREPINEPHRINE 4 MG/4 ML VIAL IV ONE (04:27)
[2017-02-26] MEDS: NOREPINEPHRINE 16 MG in SODIUM CHLORIDE 0.9% 242 ML IV SCH ×3 (04:30→12:23)
[2017-02-26 06:03] LABS: Calcium 8.6 MG/DL (8.5-10.1); Magnesium 2.4 MG/DL (1.8-2.4); Osmolality,Calculated 281.8 MOS/KG (273-304); Potassium 3.6 MMOL/L (3.5-5.1)
--- NOTE | 2017-02-26 07:08 | Nephrology Progress Note ---
Nephrology - PN: Subj Interval history: Patient is intubated and sedate. Physical exam general the patient is chronically ill-appearing, heart is regular rate and rhythm, he has no pitting edema, lungs reveal crackles over the left anteriorly, abdomen is soft with occasional high-pitched bowel sounds, neuro--patient opens his eyes and seems to fix and follow Assessment/plan 1. End-stage renal disease-continue HD support 2. Respiratory failure continue ventilator support 3. Diabetes mellitus 4. Aspiration pneumonia continue antibiotics 5. Hypotension-continue pressure support therapy 6. Cardiac dysrhythmia-continue diltiazem 7. Cardiomyopathy-patient has pulmonary hypertension with PA pressure of 85 mm per mercury by echo this admission, he has moderate to severe tricuspid and mitral valve regurgitation he has a preserved ejection fraction of 55%. 8. Abdominal pain-this patient presented with abdominal pain which never really amounted to much patient admitted that he had been eating dirt the day before. Exam (PN)-Nephrology - Vital Signs Vital signs: Period Temp Pulse Resp BP Sys/Santana Pulse Ox Last 24 Hr 97.1 F-97.8 F 89-116 12-33 61-152/22-109 93-100 - Lab 02/25/17 05:10 02/26/17 05:20 Most recent lab results ABG pH 7.421 (7.35-7.45) 02/26/17 03:25 ABG pCO2 42.9 MM HG (35-48) 02/26/17 03:25 ABG pO2 73.5 MM HG (80-95) L 02/26/17 03:25 ABG HCO3 27.0 MMOL/L (20-26) H 02/26/17 03:25 ABG O2 Saturation 95.2 % (95-100) 02/26/17 03:25 Calcium 8.6 MG/DL (8.5-10.1) 02/26/17 05:20 Phosphorus 2.3 MG/DL (2.5-4.9) L 02/24/17 04:00 Magnesium 2.4 MG/DL (1.8-2.4) 02/26/17 05:20 Assessment and Plan (1) Abdominal pain Status: Acute Assessment and plan: Patient's abdominal pain seems to be improved, the patient states he ate some white dirt yesterday and thinks that this may have been the cause to his abdominal pain, CT scan of the abdomen did not seem to reveal any acute pathology to explain his pain. Current Visit: Yes (2) Atrial fibrillation with RVR Status: Acute Assessment and plan: Continue Cardizem for rate control Current Visit: Yes (3) Diabetes mellitus Status: Chronic Assessment and plan: Monitor with a sliding scale Current Visit: No Qualifiers: Diabetes mellitus type: type 2 Diabetes mellitus complication status: with hyperosmolarity (4) End stage renal disease on dialysis Status: Chronic Assessment and plan: We will plan on hemodialysis today. Current Visit: No
[2017-02-26] MEDS: DORNASE ALFA 2.5 MG/2.5 ML VIAL RESP TX SCH (07:09)
[2017-02-26 07:15] LABS: Basophils % 0.2 % (0.0-0.8); Eosinophils # 0.2 10*3/uL (0.0-0.87); Eosinophils % 1.9 % (0.00-10.9); Hematocrit 35.4 VOL% (42.0-52.0); Hemoglobin 12.3 GM/DL (14.0-18.0); Immature Granulocytes % 0.5 %; Immature Granulocytes Absolute 0.06 #; Lymphocytes # 0.8 10*3/uL (1.4-4.0); Lymphocytes % 7.1 % (21.2-54.2); Mean Corpuscular HGB Conc 34.7 GM/DL (32-36); Mean Corpuscular Hemoglobin 30 PG (27-34); Mean Corpuscular Volume 84.9 FL (87-102); Mean Platelet Volume 10.5 FL (9.6-12.0); Monocytes # 1.3 10*3/uL (0.11-0.8); Monocytes % 11.3 % (1.7-12.7); NRBC # 0.02 10*3/uL; Platelet Count 162 T/CUMM (130-400); Red Blood Count 4.17 MC/CUMM (3.8-5.5); Red Cell Distribution Width 16.8 % (9.3-17.3); White Blood Count 11.4 T/CUMM (4-12)
--- NOTE | 2017-02-26 07:36 | Pulmonology Progress Note ---
Pulmonary - PN: Subj Interval history: 71-year-old black male is a dialysis patient. He had acute decreased level of consciousness and respiratory distress yesterday and was intubated. It is suspected that he has aspirated. Plans are for bronchoscopy this morning. Presently on the ventilator and his ABGs look okay. 02/23/2017 patient remains poorly responsive. ABGs look good. Cultures are pending from bronchoscopy. Continuing broad-spectrum antibiotics for suspected aspiration. 02/24/2017 patient's oxygen saturation dropped during the night. He is now on 100% oxygen. ABGs are pending. His chest x-ray looks okay. His ABGs are in the ARDS range. Likely due to aspiration. He is growing 2 organisms from the bronchial washings. Hopefully he is covered with current antibiotics but we do not have the final sensitivities as yet. Currently still has thick secretions. We are adding Pulmozyme. 02/25/2017 ABGs are looking much better. Turns out that the patient's oxygen saturation did not really drop yesterday. It was a bad reading on her oxygen saturation. His PO2 was in the 400s on 100%. At present his PO2 is around 200 on 50%. Chest x-ray is stable. Patient's blood pressure is in the 140s. He is on 2 pressors. I think we can likely stop 1 of the 2. Patient is to get dialysis later today. Should be ready for transfer to [facility] today. 02/26/2017 patient did not go to [facility] yesterday which should go today. ABGs acceptable on 35% oxygen. Patient tolerating CPAP. Needs further weaning trials. Patient is on a good bit less Yogesh-Synephrine now. Still on Levophed. These could be weaned at [facility] Exam (Progress Note) - Constitutional Vitals: Period Temp Pulse Resp BP Sys/Santana Pulse Ox Last 24 Hr 97.1 F-97.8 F 89-116 12-33 61-152/22-109 93-100 Exam: Patient does recoil when I tried to check his pupillary reflexes which are positive. Patient open his eyes and nodded to his name this morning. He will flinch a little on painful stimulus. Vital signs normal. Systolic blood pressure in the 100, on both Yogesh-Synephrine and Levophed. Pupils do react, the left one a little better than the right one in the left one is a little larger than the right lung. He has arcus senilis. Orotracheal tube is in place. Neck is supple. Chest reveals some rhonchi bilaterally equal breath sounds. Heart normal rate rhythm no murmurs. Abdomen soft nontender. Extremities he has 1+ peripheral edema. Results - Labs CBC & BMP: 02/26/17 06:44 02/26/17 05:20 Lab Results: I have reviewed the past 24 hour labs - Diagnostic Findings Procedure: Chest x-ray: image reviewed by me (Lungs fairly clear. ET tube good position. Sternal wires noted. Pacemaker in place. Central line in the right subclavian) Assessment and Plan (1) Acute respiratory failure Status: Acute Assessment and plan: Patient now on mechanical ventilation. There is a question about aspiration. I will plan bronchoscopy in the morning. Adjust ventilator and wean as parameters allow. 02/22/2017 ABGs look good. He has a good bit of purulent looking secretions. Plan bronchoscopy for cultures. Continuing empiric antibiotics. 02/23/2017 PO2 is 203. Reduce FiO2. Mental status not good. Will take a while to wean him. May end up needing a tracheostomy. 02/24/2017 this is likely due to aspiration. His oxygen saturation worsened overnight. ABGs are pending this morning. 02/25/2017 ABGs much improved. Should be where we can wean him. He is tolerating prolonged CPAP. Mental status and hypotension on the remaining barriers. 02/26/2017 ABGs acceptable on 35% oxygen. Tolerating CPAP. Need mental status and blood pressure to stabilize before we can get him extubated. Current Visit: Yes (2) End stage renal disease on dialysis Status: Chronic Assessment and plan: Continuing with regular dialysis. 02/23/2017 continuing with dialysis for acute on chronic renal failure. 02/24/2017 continuing with dialysis schedule. 02/25/2017 due for dialysis today. 02/26/2017 had dialysis yesterday. Continuing with Wednesday dialysis plus as needed Current Visit: No (3) GI bleed Status: Chronic Assessment and plan: Prevents anticoagulation. 02/22/2017 defer to GI 02/24/2017 hematocrit stable at 38 02/25/2017 hematocrit is 36 today 02/26/2017 this is stable. Hematocrit 35. Current Visit: No Qualifiers: GI bleed type/associated pathology: unspecified gastrointestinal hemorrhage type Qualified Code(s): K92.2 - Gastrointestinal hemorrhage, unspecified (4) IDDM (insulin dependent diabetes mellitus) Status: Chronic Assessment and plan: Good control on sliding scale. 02/22/2017 blood sugars are fairly well controlled 02/23/2017 glucoses very well controlled 02/24/2017 glucoses remained well controlled. 02/25/2017 glucoses are well controlled. 02/26/17 glucoses in the 100s. Current Visit: No (5) Status post coronary artery bypass grafting Status: Chronic Assessment and plan: Has normal LV ejection fraction but severe MR. 02/22/2017 there may be an element of congestive failure related to his MR 02/23/2017 no bharat heart failure Current Visit: No (6) Tachy-fuentes syndrome Status: Chronic Assessment and plan: Has pacemaker Current Visit: No (7) Severe mitral regurgitation Status: Acute Assessment and plan: This is being managed medically. Defer to cardiology. Not a good candidate for mitral valve replacement. 02/25/2017 does not appear to be in heart failure 02/26/1932 needs to be kept in mind but not in bharat failure at present. Current Visit: Yes
[2017-02-26] MEDS: METOCLOPRAMIDE 5 MG TABLET PO SCH ×2 (08:17→11:38)
[2017-02-26] MEDS: LEVOTHYROXINE 100 MCG VIAL IV SCH (08:17)
[2017-02-26] MEDS: DOPamine 800 MG/250 ML PREMIX IV SCH (08:21)
--- NOTE | 2017-02-26 08:38 | XRay Report ---
Portable chest Date: 02/26/2017 Clinical history: Shortness of breath Comparison: 02/25/2017 Technique: Portable AP sitting chest Findings: The heart is borderline in size with left subclavian ventricular permanent pacemaker. Prior median sternotomy with the supportive devices stable in position. Very minimal reduction in the diffuse parenchymal findings with small pleural effusions. Stable mediastinum and osseous structures. Impression: Minimally improved pulmonary edema/pneumonitis. Otherwise the chest appears fairly stable in appearance. PROCEDURE INTERPRETED AT [facility] Final Report Signed by: Dr. Brandy Ambrose
--- NOTE | 2017-02-26 09:28 | Discharge Summary ---
<Vikash Lebron - Last Filed: 02/26/17 08:39> Hospital Course - Hospital Course Hospital Course: Mr. Nye is a 71 year old male who was admitted through the [place] ED on 02/12/2017 with complaints of abdominal pain. He was found to be in atrial fibrillation with RVR, ESRD and septic shock. In the ED, he was treated with Cardizem drip for rate control, IVF bolus and supportive measures before being admitted by the hospitalist team to the ICU. He was started on pressors for BP support. Cardiology, pulmonology and nephrology were consulted to assist in his care. Patient continued on hemodialysis while hospitalized and tolerated this well. Echocardiogram on admission revealed normal ejection fraction with EF 55% with moderate to severe MR and TR and severe pulmonary hypertension. Beta blockade was added to facilitate weaning the IV Cardizem. Cardizem was discontinued on 02/14/2017. He was also started on high intensity statin therapy given his severe PVD. The patient did develop some pulmonary edema and subsequent shortness of breath with hypoxia. Patient was noted to be a bit delirious, requiring moderate sedation. It was decided that he should be dialyzed daily until mentation improved. He was transferred to a monitored bed on the telemetry floor on 02/19/2017. He was started on PO Cardiezem. Shortly thereafter, the patient was found to be in acute respiratory failure with aspiration requiring mechanical ventilation and pulmonology consultation. He was transferred back to the Unit and pulmonology performed a fiberoptic bronchoscopy with bronchial washings. Cultures grew Klebsiella and MRSA. Vancomycin, clindamycin and levaquin were started. However, the patient's mentation remained poor. HD was held. Patient was maxed on 2 pressors. He began to improve on 02/25/2017 with vitals stablizing. Yogesh-Synephrine is being weaned while he remains on Levophed. Physical exam is much improved. He is now awake and following some simple commands. ABGs are acceptable on 35% oxygen, and the patient is tolerated CPAP. At this time, the he is stable for transfer to [facility] for continued supportive care. - Time spent with patient Time with patient DS: Greater than 30 minutes Diagnosis - Discharge Diagnosis (1) Atrial fibrillation with rapid ventricular response Status: Chronic (2) ESRD (end stage renal disease) on dialysis Status: Chronic (3) Hypotension Status: Acute (4) Peripheral artery disease Status: Chronic (5) Diabetic foot Status: Acute (6) Prostatitis Status: Acute (7) Status post coronary artery bypass grafting Status: Chronic Discharge Plan - Discharge Data Disposition: Disch/Xfer to [facility] - Discharge Medications New Acetaminophen Tab [Tylenol Tab] 325 mg PO Q4H PRN tablet PRN Reason: fever, headache/body aches Aspirin EC Tab 81 mg PO DAILY tablet Clindamycin Inj [Cleocin Inj] 600 mg IV Q8H Dextrose 50% [D50] 25 gm IV PRN PRN syringe PRN Reason: Hypoglycemia with IV access Diltiazem Tab [Cardizem Tab] 240 mg PO DAILY tablet Docusate Sodium Cap [Colace Cap] 100 mg PO BID PRN capsule PRN Reason: Constipation Enoxaparin [Lovenox] 30 mg SUBCUT Q24H syringe Famotidine Inj [Pepcid Inj] 20 mg IV Q24H vial Glucagon 1 mg IM PRN PRN vial PRN Reason: Hypoglycemia w/o IV access Haloperidol Inj [Haldol Inj] 5 mg IM Q4H PRN PRN Reason: Agitation Insulin Regular [HumuLIN R] See Protocol SUBCUT Q6HR unit Lactulose Liquid [Chronulac] 20 gm PO BID Levofloxacin Inj [Levaquin Inj] 250 mg IV Q48H Midazolam [Versed] 100 mg IV TITRATE vial Phenylephrine Inj [Yogesh-Synephrine Inj] 160 mg IV TITRATE vial Vancomycin Inj 1,250 mg IV PRN PRN vial PRN Reason: HD DOSING Vancomycin Inj 750 mg IV PRN PRN vial PRN Reason: HD DOSING prednisoLONE AC 1% OPH SUSP [Pred Forte] 1 drop BOTH EYES BID bottle Carvedilol [Coreg] 12.5 mg PO BID tablet Dornase Jassi [Pulmozyme] 2.5 mg RESP TX RT Q12H vial Iron Sucrose [Venofer] 50 mg IV Mo@1800 vial Norepinephrine [Levophed] 16 mg IV TITRATE vial Continue Metoclopramide Tab [Reglan Tab] 5 mg PO AC Allopurinol 300 mg PO DAILY Levothyroxine Tab [Synthroid Tab] 75 mcg PO DAILY@0700 Calcium Acetate 4 capsule PO TID W/MEALS Vit B Cmplx 3/Folic AC/C/Biot [Sarai-Scooby Rx Tablet] 1 each PO DAILY Discontinued Docusate Sodium Cap [Colace Cap] 100 mg PO BID Carvedilol 2 tablet PO QAM Cyclobenzaprine [Flexeril] 10 mg PO DAILY Famotidine Tab [Pepcid Tab] 20 mg PO BID Carvedilol [Coreg] 6.25 mg PO BEDTIME - Follow Up or Referral - Forms/Instructions Exam - Constitutional Vitals: Period Temp Pulse Resp BP Sys/Santana Pulse Ox Last 24 Hr 97.1 F-97.8 F 89-116 12-33 61-152/22-109 93-100 Discharge Results Procedures and tests throughout hospitalization: Pending Orders 02/24/17 11:52 Blood Culture Routine 03/01/17 04:00 Magnesium Routine Phosphorous Routine Prealbumin Routine Labs on day of discharge: Labs from last 24 hours 02/26/17 02/26/17 02/26/17 06:44 05:25 05:20 WBC 11.4 RBC 4.17 Hgb 12.3 L Hct 35.4 L MCV 84.9 L MCH 30 MCHC 34.7 RDW 16.8 Plt Count 162 MPV 10.5 Neut % (Auto) 79.0 H Lymph % (Auto) 7.1 L [place] % (Auto) 11.3 Eos % (Auto) 1.9 Baso % (Auto) 0.2 Neut # (Auto) 9.0 H Lymph # (Auto) 0.8 L [place] # (Auto) 1.3 H Eos # (Auto) 0.2 Baso # (Auto) 0.0 Immature Gran % 0.5 Nucleated RBC % 0.2 Immature Gran # 0.06 Nucleated RBCs # 0.02 Immature Plt Fraction 0.0 ABG pH ABG pCO2 ABG pO2 ABG HCO3 ABG Total CO2 ABG O2 Saturation ABG Base Excess Sodium 137 Potassium 3.6 Chloride 101 Carbon Dioxide 29 Anion Gap 10.6 BUN 32 H Creatinine 5.80 H GFR Calculation 11 BUN/Creatinine Ratio 5.00 L Glucose 143 H POC Glucose 143 H Calculated Osmolality 281.8 Calcium 8.6 Magnesium 2.4 02/26/17 02/26/17 02/25/17 03:25 01:18 17:37 WBC RBC Hgb Hct MCV MCH MCHC RDW Plt Count MPV Neut % (Auto) Lymph % (Auto) [place] % (Auto) Eos % (Auto) Baso % (Auto) Neut # (Auto) Lymph # (Auto) [place] # (Auto) Eos # (Auto) Baso # (Auto) Immature Gran % Nucleated RBC % Immature Gran # Nucleated RBCs # Immature Plt Fraction ABG pH 7.421 ABG pCO2 42.9 ABG pO2 73.5 L ABG HCO3 27.0 H ABG Total CO2 23.7 ABG O2 Saturation 95.2 ABG Base Excess 3.0 H Sodium Potassium Chloride Carbon Dioxide Anion Gap BUN Creatinine GFR Calculation BUN/Creatinine Ratio Glucose POC Glucose 169 H 181 H Calculated Osmolality Calcium Magnesium 02/25/17 11:37 WBC RBC Hgb Hct MCV MCH MCHC RDW Plt Count MPV Neut % (Auto) Lymph % (Auto) [place] % (Auto) Eos % (Auto) Baso % (Auto) Neut # (Auto) Lymph # (Auto) [place] # (Auto) Eos # (Auto) Baso # (Auto) Immature Gran % Nucleated RBC % Immature Gran # Nucleated RBCs # Immature Plt Fraction ABG pH ABG pCO2 ABG pO2 ABG HCO3 ABG Total CO2 ABG O2 Saturation ABG Base Excess Sodium Potassium Chloride Carbon Dioxide Anion Gap BUN Creatinine GFR Calculation BUN/Creatinine Ratio Glucose POC Glucose 142 H Calculated Osmolality Calcium Magnesium Preliminary micro results at discharge 02/24/17 11:52 Blood Culture - Preliminary Blood No growth at 1 day 02/24/17 11:52 Blood Culture - Preliminary Blood No growth at 1 day DS: Provider Date of admission: 02/12/17 10:06 Primary care physician: . No PCP Attending physician on admission: Gilson Mckeon III Consults: 02/12/17 10:33 Consult to Physician [CONS] Routine Comment: ESRD on HD (MWF) Consulting Provider: Jimy Pagan Consulting Provider Notified: Yes Consult to Specialist Group: Nephrology Person Notified: SUMAYA Date Notified: 02/12/17 Time Notified: 11:15 02/13/17 08:27 Consult to Physician [CONS] Routine Comment: Consulting Provider: Cardiology - [facility] 02/21/17 08:30 Consult to Physician [CONS] Routine Comment: Consulting Provider: Consult to Specialist Group: Pulmonology Person Notified: dr. rodriguez Date Notified: 02/21/17 Time Notified: 08:30 Consult Notification Comment: dr. rodriguez in unit and made aware and saw. 02/23/17 06:42 Consult to Dietitian [CONS] Routine Reason for Dietitian: TF-Initiate/Manage 02/24/17 07:04 Consult to Pharmacy [CONS] Routine Reason for Pharmacy Consult: Other Comment: Concentrate IV meds (pressors) maximally in esrd patient 02/24/17 11:39 Consult to Pharmacy [CONS] Routine Reason for Pharmacy Consult: Dose/Manage Vancomycin Adjust Meds Renal Funct 02/24/17 16:17 Consult to Case Mgmt/Social Srvs [CONS] Routine Reason for Case Mgmt/Social Srvs: LTAC Discharging clinician: Vikash CERON Expected date of discharge: 02/26/17 <Lashonda Richards - Last Filed: 02/26/17 10:14> Hospital Course - Time spent with patient Time with patient DS: Greater than 30 minutes (45) Diagnosis - Discharge Diagnosis (1) ESRD (end stage renal disease) on dialysis Status: Chronic (2) Atrial fibrillation Status: Chronic (3) Aspiration into airway Status: Resolved (4) Respiratory failure Status: Acute (5) Septic shock Status: Acute Discharge Plan - Discharge Data Condition at Discharge: Guarded Discharge Diet: other Exam - Constitutional General appearance: normal weight, other - Head Head exam: Present: normocephalic, atraumatic - Eye Eye exam: Present: EOMI Pupils: Present: CHRIS - ENT ENT exam: Present: normal exam - Neck Neck exam: Present: normal inspection - Respiratory Respiratory exam: Present: clear to auscultation bilaterally. Absent: rhonchi, wheezes - Cardiovascular Cardiovascular exam: Present: regular rate and rhythm - GI/Abdominal GI/Abdominal exam: Present: normal bowel sounds, soft. Absent: tenderness, rebound - Extremities Exam Extremities exam: Present: normal inspection - Back Exam Back exam: Present: normal inspection - Neurological Exam Neurological exam: Present: other (follows commands) - Psychiatric Psychiatric exam: Present: normal affect, normal mood - Skin Skin exam: Present: warm, intact
[2017-02-26] MEDS: ALLOPURINOL 300 MG TABLET PO SCH (09:59)
[2017-02-26] MEDS: LACTULOSE 20 GM/30 ML UDCUP PO SCH (09:59)
[2017-02-26] MEDS: ASPIRIN EC 81 MG TABLET PO SCH (10:00)
[2017-02-26] MEDS: MULTIVITAMIN (BEROCCA) TABLET PO SCH (10:00)
[2017-02-26] MEDS: CALCIUM ACETATE 667 MG CAPSULE PO SCH ×2 (10:00→11:38)
[2017-02-26] MEDS: DILTIAZEM 60 MG TABLET PO SCH (10:00)
[2017-02-26] MEDS: NYSTATIN 500,000 UNIT/5 ML UDCUP SWISH/SWAL SCH ×2 (10:02→12:24)
[2017-02-26] MEDS: PHENYLEPHRINE INJ 160 MG in SODIUM CHLORIDE 0.9% 234 ML IV SCH (10:03)
[2017-02-26] MEDS: CARVEDILOL 12.5 MG TABLET PO SCH (10:03)
[2017-02-26] MEDS: prednisoLONE ACETATE 1% OPH SUSP 5 ML BOTTLE BOTH EYES SCH (10:04)
[2017-02-26] MEDS: LEVOFLOXACIN INJ 250 MG in PREMIX 1 EACH IV SCH (10:33)
[2017-02-26] MEDS: FAMOTIDINE 20 MG/2 ML VIAL IV SCH (10:46)
[2017-02-26] MEDS: ENOXAPARIN 30 MG/0.3 ML SYRINGE SUBCUT SCH (11:37)
[2017-02-26 16:59] VITALS: BP 106/69
== END 2017-02-26 15:43 | DRG 308 ==
LOC: EDBD → EDUNIT# → N.ED 06:37 → SUATTDRO 10:06 → N.EDINP 10:06 → N.ICU 11:03 → N.TELES 02-19 14:43 → N.CC 02-21 08:26
PROVIDERS: ADMIT Internal Medicine; ATTEND Internal Medicine